=== PATIENT | male | born 1955 | race Caucasian/White ===

== ENCOUNTER 2019-11-10 08:00 | Outpatient (CLI) | payer OTHER, SELFPAY ==
--- NOTE | 2019-11-10 08:25 | CT_ITS ---
WS: [id number] CT ABDOMEN PELVIS TECHNIQUE: Contrast-enhanced CT of the abdomen and pelvis with coronal and sagittal reformatted image s. CLINICAL INFORMATION: FOLLOW UP RENAL MASS COMPARISON: December 13, 2018 DLP: 1182.[address] scans at [facility] use at least one of these dose optimization techniques: automat ed exposure control; mA and/or kV adjustment per patient size (includes targeted exams where dose is matched to clinical indication); or iterative reconstruction. FINDINGS: Diffuse fatty infiltration liver. Numerous tiny low-attenuation lesions throughout both hepatic lobes are unchanged. Normal gallbladder. Normal GE junction. Lung bases are well aerated. Normal visualize d pancreas. Portal vein and splenic vein are patent. Normal spleen. Adrenal glands are normal. Normal renal parenchymal enhancement. No hydronephrosis. Complex exophytic left renal lesion is stable measuring 17 x 16 mm. A few internal septations and peripheral enhanceme nt. Diverticulosis. No evidence of acute diverticulitis. Fat-containing left inguinal hernia. Normal caliber abdominal aorta. Mild aortic calcification. Slightly enlarged heterogeneous prostate. No evidence of small large bowel obstruction. Mild inflammatory stranding and induration about the s igmoid colon and rectosigmoid junction can be seen with mild diverticulitis and proctitis. CT/CT abdomen pelvis w con* [id number] IMPRESSION: 1. Stable exophytic left renal lesion measuring 17 x 16 mm unchanged. Recommen d continued annual surveillance. 2. Low-attenuation lesions in both hepatic lobes likely hepatic cysts with stephani e too small to characterize are stable. 3. Mild induration and inflammatory stranding about the sigmoid colon and rect osigmoid junction can be seen with mild acute diverticulitis and proctitis. Rec ommend correlation for infection. 4. Slightly enlarged nodular prostate. Recommend correlation PSA. 5. No other significant changes.
[2019-11-10 09:15] LABS: Blood Urea Nitrogen 18 mg/dL (8-23); Glomerular Filtration Rate 113.5 mL/min (90-130)
[2019-11-10] MEDS: iohexol 300 mg/mL 100 mL Btl IV (09:22)
== END 2019-11-10 08:01 | disposition home or self-care (01) ==
LOC: RADWPI 08:04
PROVIDERS: Family Provider Emergency Medicine Emergency Medical Services; Visit Provider Emergency Medicine Emergency Medical Services
DX: N28.89 Other specified disorders of kidney and ureter (principal); N40.0 Benign prostatic hyperplasia without lower urinary tract symptoms; K76.9 Liver disease, unspecified
CPT/HCPCS: 74177; 82565; 84520; Q9967

== ENCOUNTER 2020-09-07 11:51 | Outpatient (CLI) | payer OTHER, SELFPAY ==
--- NOTE | 2020-09-07 12:10 | USCV_ITS ---
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 Dr Onesimo Mcconnell MD [facility] (Electronically Signed) Final Date: 07 September 2020 16:32 S
== END 2020-09-07 11:52 | disposition home or self-care (01) ==
LOC: RAD 11:54
PROVIDERS: PCP Emergency Medicine Emergency Medical Services; Visit Provider Nurse Practitioner
DX: M79.604 Pain in right leg (principal); M79.605 Pain in left leg
CPT/HCPCS: 93922

== ENCOUNTER 2020-09-18 10:03 | Outpatient (CLI) | payer OTHER, SELFPAY ==
--- NOTE | 2020-09-18 10:53 | CT_ITS ---
WS: [id number] CT ABDOMEN WITH CONTRAST HISTORY: ANNUAL FOLLOW UP ON RENAL MASS Contiguous single phase 5 mm axial imaging performed to the abdomen. Oral contrast has not been provi ded. Coronal and sagittal reformats are submitted. All CT scans at [facility] use at leas t one of these dose optimization techniques: automated exposure control; mA and/or kV adjustment per patient size (includes targeted exams where dose is matched to clinical indication); or iterative rec onstruction. CONTRAST: Omnipaque 300; 95 mL IV. DLP: 892.45 mGycm COMPARISON: 11/10/2019, 12/13/2018 and 04/08/2018 Lower thorax: Lung bases are clear. Small hiatal hernia. Liver: Liver is slightly enlarged. There are multiple scattered low-attenuation lesions within the li christina which have been previously described. Majority of these are too small to characterize but there i s no increase in size. Gallbladder: Normal. Pancreas: Normal. Spleen: Spleen is enlarged measuring 19 cm in length. Mild progressive enlargement of the spleen sinc e 06/28/2018. Adrenals: Normal. Right kidney: Nonobstructing 2 mm calcification upper pole. Left kidney: Exophytic low-attenuation well-circumscribed mass from the posterior mid kidney measures 18 x 18 mm with mild increase in size. No obstruction. Mass was originally noted on a study from 05/11 measuring 13 x 14 mm. Aorta: Mild atherosclerosis with no aneurysm. GI tract: Moderate fluid distention of the stomach. No obstruction. No adenopathy or free fluid. Abdominal wall: No hernia. Visualized osseous structures: Mild lumbar spondylosis. CT/CT abdomen w con* [id number] IMPRESSION: 1. No significant increase in size of the solid mass exophytic from the radiator fitter ior mid LEFT kidney. Mass measures 18 x 18 mm. Originally described on 4 measuring 13 x 14 mm. Continued annual surveillance recommended. 2. Mild progressive splenomegaly. May be secondary to portal venous hypertensi on. 3. Numerous low-attenuation lesions in the liver are similar to prior studies and thought to be cysts but too small to characterize.
[2020-09-18] MEDS: iohexol 300 mg/mL 100 mL Btl IV (11:15)
== END 2020-09-18 10:04 | disposition home or self-care (01) ==
PROVIDERS: PCP Emergency Medicine Emergency Medical Services; Visit Provider Emergency Medicine Emergency Medical Services
DX: N28.89 Other specified disorders of kidney and ureter (principal)
CPT/HCPCS: 74160; Q9967

== ENCOUNTER 2021-02-22 22:17 | Emergency (ER) | payer OTHER, MEDICARE, SELFPAY ==
[2021-02-22 22:31] VITALS: BP 142/90; PULSE 102; RESP 16; TEMP 36.7; O2SAT 98
--- NOTE | 2021-02-23 01:18 | W.ED.GENADLT ---
HPI - General Adult General: Chief complaint: General Medical Stated complaint: pain in tail bone Time Seen by Provider: 02/23/21 01:18 History of Present Illness: HPI narrative: 66-year-old male gentleman comes in today for complaints of low back pain. Patient reports he will be standing at his sink and sometimes will have a strain sensation in his low back causing him to become weak in his legs. Patient gets his medications from [facility] and reports multiple medicines. Patient also admits to using THC drops. Patient reports occasional nosebleed this week from his right nostril. Patient reports that he got both hips replaced this year. Review of Systems Musc: Reports: muscle weakness (Bilateral lower legs) Physical Exam Const: GENERAL APPEARANCE: cooperative HENMT: COMMON NORMALS: normocephalic and TM's normal bilaterally HEAD & SCALP: normal to inspection and normocephalic NOSE: Nasal discharge present TYMPANIC MEMBRANE: TM's normal bilaterally MOUTH: Normal oral and palatal mucosa present THROAT: posterior oropharynx normal Eye: GENERAL EYE: appearance normal, both eyes and all related structures Neck/C-Spine: CERVICAL SPINE: Yes pain with cervical ROM with rotation to the right Lymph: LYMPHATIC: no lymphadenopathy noted Resp: COMMON NORMALS: normal respiratory effort and clear to auscultation bilaterally EFFORT & INSPECTION: Yes able to speak in complete sentences AUSCULTATION: clear to auscultation bilaterally Cardio: COMMON NORMALS: regular rate and regular rhythm RATE: regular rate RHYTHM: regular rhythm GI: COMMON NORMALS: non-tender : COMMON NORMALS: Yes no CVA tenderness BLADDER/KIDNEY EXAM: Yes no CVA tenderness Back/Pelvis: COMMON NORMALS: no CVA tenderness SACROILIAC JOINTS: Yes SI joint(s) abnormal SI joint details: tender to palpation (right SI joint area) Extremity: COMMON NORMALS: normal to inspection Neuro: COMMON NORMALS: moves all extremities Psych: COMMON NORMALS: mental status grossly normal and cooperative Skin: COMMON NORMALS: no rashes or lesions noted GENERAL SKIN EXAM: no rashes or lesions noted Course Vital Signs: Vital signs: Vital Signs Temperature 98.0 F 02/22/21 22:31 Pulse Rate 102 H 02/22/21 22:31 Respiratory Rate 16 02/22/21 22:31 Blood Pressure 142/90 02/22/21 22:31 Pulse Oximetry 98 02/22/21 22:31 MDM - General Adult MDM Narrative: Medical decision making narrative: 66-year-old male patient who ambulated into the emergency room and to his room in bed without any difficulty. Patient reports that over the last 1 to 2 weeks he has had some tailbone discomfort causing his legs to want to buckle. Patient also reports a occasional nosebleed. Patient appears well. Patient appears in no pain at rest. On exam lungs were clear to auscultation. Abdomen soft nontender. Patient had bilateral nasal congestion. Palpation of the cervical, thoracic, and lumbar spine elicited no pain. Palpation of the right sacroiliac joint area noted some tenderness and muscle tightness. Patient reported some numbness in his feet, history of diabetes mellitus and recent hip replacements. Differential diagnosis includes not limited to lumbar sacral pain, diabetic neuropathy, anxiety, electrolyte abnormality. Laboratory values noted a mild thrombocytopenia at 82, CMP was unremarkable, CRP was negative. I feel the patient probably has some sacroiliac back pain that is causing him to have discomfort when standing. Patient has some an incidental finding of thrombocytopenia which may be causing his occasional nosebleed. I do not have any explanation at this time for his thrombocytopenia I recommended patient follow-up with his primary care for further evaluation. I reviewed this with Dr. Foote who agreed to plan. Lab Data: Labs: Lab Results 02/23/21 02/23/21 02/23/21 01:15 01:43 01:43 WBC 4.6 10^3/uL 10^3/ uL (4.0-10.0) RBC 5.07 10^6/uL 10^6 /uL (4.1-5.3) Hgb 14.6 g/dL g/dL (11.7-16.6) Hct 46.2 % % (42.0-52.0) MCV 91.1 fl fl (80-94) MCH 28.8 pg pg (28.0-34.0) MCHC 31.6 g/dL g/dL (30.0-36.0) RDW 15.2 % H % (12.1-15.1) Plt Count 82 10^3/cmm L 10^ 3/cmm (130-400) MPV 11.6 fL H fL (7.4-10.4) Neut % (Auto) 69.0 % % Lymph % (Auto) 20.1 % % Glenn % (Auto) 8.4 % % Eos % (Auto) 1.7 % % Baso % (Auto) 0.6 % % Neut # (Auto) 3.18 10^3/uL 10^3 /uL (1.8-7.7) Lymph # (Auto) 0.9 10^3/uL 10^3/ uL (0.8-4.8) Glenn # (Auto) 0.4 10^3/uL 10^3/ uL (0.2-0.9) Eos # (Auto) 0.1 10^3/uL 10^3/ uL (0.0-0.8) Baso # (Auto) 0.0 10^3/uL 10^3/ uL (0.0-0.1) Nucleated RBC % (a uto) 0 % % Nucleated RBCs # 0.0 /100WBC /100W BC Sodium 139 mmol/L mmol/L (136-145) Potassium 3.8 mmol/L mmol/L (3.5-5.1) Chloride 102 mmol/L mmol/L (98-107) Carbon Dioxide 21 mmol/L L mmol/ L (22-29) Anion Gap 19.8 H (5-19) BUN 11 mg/dL mg/dL (8-23) Creatinine 0.6 mg/dL L mg/dL (0.7-1.2) GFR Calculation 134.8 mL/min H mL /min (90-130) Glucose 97 mg/dL mg/dL (65-115) Calculated Osmolal ity 287 mOsm/kg mOsm/ kg (285-295) Calcium 9.3 mg/dL mg/dL (8.5-10.5) Total Bilirubin 0.4 mg/dL mg/dL (0.15-1.2) AST 28 U/L U/L (0-40) ALT 25 U/L U/L (0-41) Alkaline Phosphata se 153 IU/L H IU/L (40-130) C-Reactive Protein 0.5 mg/L mg/L (0.0-4.9) Total Protein 7.1 g/dL g/dL (6.6-8.7) Albumin 4.5 g/dL g/dL (3.5-5.2) Globulin 2.6 g/dL g/dL (1.3-4.6) Urine Color Yellow (Yellow) Urine Appearance Clear (CLEAR) Urine pH 8 H (5-7) Ur Specific Gravit y 1.015 (1.005-1.030) Urine Protein Neg (Negative) Urine Glucose (UA) Norm (Normal) Urine Ketones Negative (Negative) Urine Blood Neg (Negative) Urine Nitrate Negative (Negative) Urine Bilirubin Neg (Negative) Prot Sulfosalicyli c Acd Negative (Negative) Urine Urobilinogen Norm mg/dL mg/dL (Negative) Ur Leukocyte Sara ase Negative (Negative) Discharge Plan Discharge Patient Disposition: Home Clinical Impression: Thrombocytopenia, Sacral back pain Condition: Stable Discharge Orders: Discharge ED (Routine); Ordered 02/23/21 Ordered By: Richie Green Referrals: Demarcus Starks DO [Primary Care Provider] - Discharge Diet: Usual diet Discharge Activity: Increase activity as tolerated Patient Instructions: Lumbar Radiculopathy (ED) Activity Restrictions/Additional Instructions: Light activity, continue with routine medications, Follow-up with primary care first of next week. 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
[2021-02-23 01:36] LABS: Add Urine Microscopic? NO; Charge for UA Resulting for Rev
[2021-02-23 01:48] LABS: Bilirubin Urine Neg (Negative); Blood Urine Neg (Negative); Glucose Urine UA Norm (Normal); Ketones Urine Negative (Negative); Leukocyte Esterase Urine Negative (Negative); Nitrate Urine Negative (Negative); Protein Urine Neg (Negative); Specific Gravity, Urine 1.015 (1.005-1.030); Sulfosalicylic Acid Urine Negative (Negative); Urine Appearance Clear (CLEAR); Urine Color Yellow (Yellow); Urobilinogen Urine Norm (Negative); pH Urine 8 (5-7)
[2021-02-23 01:53] LABS: Basophils % 0.6 %; Eosinophils # 0.1 10^3/uL (0.0-0.8); Eosinophils % 1.7 %; Hematocrit 46.2 % (42.0-52.0); Hemoglobin 14.6 g/dL (11.7-16.6); Lymphocytes # 0.9 10^3/uL (0.8-4.8); Lymphocytes % 20.1 %; Mean Corpuscular HGB Conc 31.6 g/dL (30.0-36.0); Mean Corpuscular Hemoglobin 28.8 pg (28.0-34.0); Mean Corpuscular Volume 91.1 fl (80-94); Mean Platelet Volume 11.6 fL (7.4-10.4); Monocytes # 0.4 10^3/uL (0.2-0.9); Monocytes % 8.4 %; Neutrophils # 3.18 10^3/uL (1.8-7.7); Nucleated Red Blood Cells % 0 %; Platelet Count 82 10^3/cmm (130-400); Red Blood Count 5.07 10^6/uL (4.1-5.3); Red Cell Distribution Width 15.2 % (12.1-15.1); White Blood Count 4.6 10^3/uL (4.0-10.0)
[2021-02-23 02:04] LABS: Alanine Aminotransferase 25 U/L (0-41); Albumin Level 4.5 g/dL (3.5-5.2); Alkaline Phosphatase 153 IU/L (40-130); Anion Gap 19.8 (5-19); Aspartate Amino Transferase 28 U/L (0-40); Blood Urea Nitrogen 11 mg/dL (8-23); C Reactive Protein 0.5 mg/L (0.0-4.9); Calcium 9.3 mg/dL (8.5-10.5); Carbon Dioxide 21 mmol/L (22-29); Chloride 102 mmol/L (98-107); Globulin 2.6 g/dL (1.3-4.6); Glomerular Filtration Rate 134.8 mL/min (90-130); Glucose 97 mg/dL (65-115); Osmolality Calculated 287 mOsm/kg (285-295); Potassium 3.8 mmol/L (3.5-5.1); Sodium 139 mmol/L (136-145); Total Bilirubin 0.4 mg/dL (0.15-1.2); Total Protein 7.1 g/dL (6.6-8.7)
[2021-02-23 02:29] VITALS: RESP 17
== END 2021-02-23 02:31 | disposition home or self-care (01) ==
PROVIDERS: Emergency Provider Nurse Practitioner Family; PCP Emergency Medicine Emergency Medical Services
DX: M54.89 Other dorsalgia (principal); D69.6 Thrombocytopenia, unspecified
CPT/HCPCS: 80053; 81003; 85025; 86140; 99282

== ENCOUNTER 2021-02-25 20:41 | Emergency (ER) | payer OTHER, MEDICARE, SELFPAY ==
[2021-02-25 20:52] VITALS: BP 144/87; PULSE 118; RESP 18; TEMP 37; O2SAT 97; BMI 25.0
--- NOTE | 2021-02-25 22:11 | XRR_ITS ---
PROCEDURE INFORMATION: Exam: XR Cervical Spine Exam date and time: 02/25/2021 10:11 PM Age: 66 years old Clinical indication: Neck pain; Prior surgery; Patient HX: Left arm tingle; Additional info: Fall TECHNIQUE: Imaging protocol: XR of the cervical spine. Views: 2 or 3 views. Total images: 4 COMPARISON: No relevant prior studies available. FINDINGS: Bones/joints: No visible acute osseous abnormality. Degenerative disc disease with disc space height loss of moderate severity C6/C7. Mild spondylosis deformans. Facet arthrosis most advanced on the left C3/C4, C5/C6, and C6/C7. Less significant facet arthrosis bilaterally remaining levels. Soft tissues: Unremarkable. XR/XR cervical spine 3V* [id number] IMPRESSION: 1. Nonacute. 2. Degenerative disc disease C6/C7. 3. Facet arthrosis.
--- NOTE | 2021-02-25 22:11 | XRR_ITS ---
PROCEDURE INFORMATION: Exam: XR Lumbosacral Spine Exam date and time: 02/25/2021 10:11 PM Age: 66 years old Clinical indication: Low back pain; Prior surgery; Surgery type: Bilat hip TECHNIQUE: Imaging protocol: XR of the lumbosacral spine. Views: 2 or 3 views. Total images: 3 COMPARISON: No relevant prior studies available. FINDINGS: Bones/joints: No visible fracture, subluxation, or dislocation. No visible spondylolysis or spondylolisthesis. Facet arthrosis primarily L4/L5 and L5/S1. Moderate degenerative disc disease L1/L2. Mild spondylosis deformans L1 and L2. Pedicles intact. Bilateral total hip prostheses. Soft tissues: Unremarkable. XR/XR lumbar spine 2-3V* [id number] IMPRESSION: Nonacute.
--- NOTE | 2021-02-25 22:13 | ED_ITS ---
HPI - Back Pain/Injury General: Chief Complaint: Back Pain/Injury Stated Complaint: tingling l hand\Sharp pain base of skull\Lower Yesy Time Seen by Provider: 02/25/21 22:03 Source: patient Mode of arrival: ambulatory Limitations: no limitations History of Present Illness: HPI Narrative: 66-year-old male seen here Thursday after he strained his neck and back. He states he was stretching on Thursday and had a sharp pain in his neck and back after stretching. He states that with movement especially bending over causes pain to be worse. He states his back pain is worse than his neck pain currently denies any weaknesses in extremities or numbness. Denies any fevers. States his pains improved with rest. States pain is currently is a 7 out of 10. Associated symptoms: Deny abdominal pain, chills, dysuria, fever(s), nausea or vomiting Review of Systems Const: Denies: fever(s), chills, body aches or change in appetite Eyes: Denies: blurry vision or eye discomfort ENMT: Denies: throat pain or dental pain Card: Denies: chest pain Resp: Denies: dyspnea GI: Denies: abdominal pain, nausea, vomiting or diarrhea : Denies: dysuria Musc: Reports: neck pain and back pain Skin/Breast: Denies: rash Neuro: Denies: headache(s) Psych: Denies: depression Andrzej/Lymph: Denies: easy bruising All/Imm: Denies: urticaria Physical Exam Const: COMMON NORMALS: no acute distress, patient oriented x3 and healthy appearing HENMT: COMMON NORMALS: normocephalic and atraumatic HEAD & SCALP: normocephalic and atraumatic Eye: COMMON NORMALS: Equal, round and reactive pupils present and EOMs intact bilaterally PUPIL: Yes Equal, round and reactive pupils present Neck/C-Spine: COMMON NORMALS: full ROM and supple Chest: COMMONS NORMALS: normal inspection of the chest and normal palpation of entire chest wall Resp: COMMON NORMALS: normal respiratory effort, No retractions, No use of accessory muscles and clear to auscultation bilaterally AUSCULTATION: clear to auscultation bilaterally Cardio: COMMON NORMALS: regular rate, regular rhythm and No murmurs present (Cardio) RATE: regular rate RHYTHM: regular rhythm GI: COMMON NORMALS: Normal to inspection, nondistended, normoactive bowel sounds present, Soft to palpation, non-tender and no masses PALPATION: Yes Soft to palpation Back/Pelvis: OTHER: Paraspinal tenderness along lumbar spine along with the neck Extremity: COMMON NORMALS: normal to inspection and full ROM Neuro: COMMON NORMALS: patient oriented x3, moves all extremities and no focal motor deficits Psych: COMMON NORMALS: mental status grossly normal, Normal thought process present and cooperative THOUGHT PROCESS: Normal thought process present Skin: COMMON NORMALS: no rashes or lesions noted and no wounds GENERAL SKIN EXAM: no rashes or lesions noted Course Vital Signs: Vital signs: Vital Signs Temperature 98.6 F 02/25/21 20:52 Pulse Rate 92 02/25/21 22:58 Respiratory Rate 18 02/25/21 22:58 Blood Pressure 140/88 02/25/21 22:58 Pulse Oximetry 97 02/25/21 22:58 MDM - Back Pain/Injury MDM Narrative: Medical decision making narrative: Patient presents here with back pain is likely muscular in nature his x-rays here are negative we will place him on Naprosyn Robaxin he is to follow-up his PCP and return if worsening is no signs of cord compression or epidural abscess. Discharge Plan Discharge Patient Disposition: Home Clinical Impression: Strain of lumbar region Qualifiers: Encounter type: subsequent encounter Qualified Code(s): S39.012D - Strain of muscle, fascia and tendon of lower back, subsequent encounter Condition: Stable Prescriptions: New methocarbamol 750 mg tablet 750 mg PO Q6H PRN (Reason: spasms) Qty: 20 RF: 0 Naprosyn 500 mg tablet 500 mg PO BID PRN (Reason: pain) Qty: 20 RF: 0 Discharge Orders: Discharge ED (Routine); Ordered 02/25/21 Ordered By: Vanessa Foote Referrals: Demarcus Starks DO [Primary Care Provider] - Discharge Diet: Advance as tolerated Discharge Activity: Resume usual activity Patient Instructions: Back Pain (ED) Coding Level of Care Code ED [facility] Fwd Exam Comprehensive
[2021-02-25] MEDS: HYDROcodone-acetaminophen 5-325 mg Tablet 1 TAB PO (22:17)
[2021-02-25 22:58] VITALS: BP 140/88; PULSE 92; RESP 18; O2SAT 97
== END 2021-02-25 23:00 | disposition home or self-care (01) ==
PROVIDERS: Emergency Provider Emergency Medicine; PCP Emergency Medicine Emergency Medical Services
DX: S39.012A Strain of muscle, fascia and tendon of lower back, initial encounter (principal); X50.9XXA Other and unspecified overexertion or strenuous movements or postures, initial encounter
CPT/HCPCS: 72040; 72100; 99283

== ENCOUNTER → 2021-04-22 15:15 | Outpatient (BNVA) | payer OTHER, SELFPAY | PROVIDERS: PCP Emergency Medicine Emergency Medical Services; Referring Provider Emergency Medicine Emergency Medical Services; Visit Provider Specialist | DX: R20.0 Anesthesia of skin (principal); R20.2 Paresthesia of skin; Z98.890 Other specified postprocedural states | CPT/HCPCS: 95908 ==

== ENCOUNTER 2021-09-26 12:05 | Outpatient (CLI) | payer OTHER, SELFPAY ==
--- NOTE | 2021-09-26 12:10 | CTR_ITS ---
PROCEDURE INFORMATION: Exam: CT Abdomen And Pelvis Without And With Contrast Exam date and time: 09/26/2021 12:54 PM Age: 66 years old Clinical indication: Condition or disease; Kidney or ureter condition; Other: Renal mass RT; Additional info: Annual follow up on renal mass TECHNIQUE: Imaging protocol: Computed tomography of the abdomen and pelvis without and with contrast. Radiation optimization: All CT scans at this facility use at least one of these dose optimization techniques: automated exposure control; mA and/or kV adjustment per patient size (includes targeted exams where dose is matched to clinical indication); or iterative reconstruction. Contrast material: OMNI 350; Contrast volume: 95 ml; Contrast route: INTRAVENOUS (IV); COMPARISON: CT abdomen w con* [id number] 09/18/2020 11:07 AM RADIATION DOSE METRICS: Total DLP (mGy-cm): 2080.13 FINDINGS: Liver: Scattered hepatic subcentimeter probable cysts again seen similar to prior exam. Gallbladder and bile ducts: Normal. No calcified stones. No ductal dilation. Pancreas: Normal. No ductal dilation. Spleen: Spleen enlarged to 19 cm. Adrenal glands: Normal. No mass. Kidneys and ureters: Left kidney exophytic 18 mm potentially solid lesion again seen, similar to prior exam. Right kidney nonobstructing renal calyceal stone. Stomach and bowel: Constipation. Appendix: No evidence of appendicitis. Intraperitoneal space: Unremarkable. No free air. No significant fluid collection. Vasculature: Unremarkable. No abdominal aortic aneurysm. Lymph nodes: Unremarkable. No enlarged lymph nodes. Urinary bladder: Unremarkable as visualized. Reproductive: Unremarkable as visualized. Bones/joints: Bilateral hip arthroplasty changes. Soft tissues: Unremarkable. CT/CT abdomen pelvis wo/w [id number] IMPRESSION: 1. Left kidney exophytic 18 mm potentially solid lesion again seen, similar to prior exam. Consider additional annual follow-up exam to ensure stability for up to 5 years. 2. Spleen enlarged to 19 cm. 3. Right kidney nonobstructing renal calyceal stone. 4. Bilateral hip arthroplasty changes. 5. Constipation. 6. Scattered hepatic subcentimeter probable cysts again seen similar to prior exam.
[2021-09-26 13:01] LABS: Blood Urea Nitrogen 15 mg/dL (8-23); Glomerular Filtration Rate 84.4 mL/min (90-130)
[2021-09-26] MEDS: iohexol 350 mg/mL 100 mL Btl IV (13:01)
== END 2021-09-26 12:06 | disposition home or self-care (01) ==
LOC: RAD 12:07
PROVIDERS: PCP Emergency Medicine Emergency Medical Services; Visit Provider Emergency Medicine Emergency Medical Services
DX: Z01.89 Encounter for other specified special examinations (principal); N28.89 Other specified disorders of kidney and ureter; K59.00 Constipation, unspecified; Z96.643 Presence of artificial hip joint, bilateral; N20.0 Calculus of kidney; R16.1 Splenomegaly, not elsewhere classified
CPT/HCPCS: 74178; 82565; 84520

== ENCOUNTER 2022-05-05 07:49 | Outpatient (CLI) | payer OTHER, SELFPAY ==
--- NOTE | 2022-05-05 08:04 | US_ITS ---
WS: [id number] Exam: US abdomen limited [id number] Date/Time of Exam: 05/05/2022 8:13 AM Reason For Exam: LIVER CA SURVEILLENCE FLIP TO CITC Comparison 04/08/2018. The liver demonstrates a heterogeneous echotexture essentially unchanged from the prior study. No dis crete mass is noted in the liver. No intrahepatic ductal dilatation. There are 2 small cysts in the r ight hepatic lobe. The largest cyst measures about 1.25 cm at greatest diameter, the smaller cyst abo ut 0.6 cm. The pancreas is unremarkable as visualized. Flow in the portal vein was hepatopedal. Unrem arkable right kidney measures 12.3 cm at greatest length. The gallbladder appears normal. Common bile duct is not dilated and measures approximately 3 mm at greatest diameter. No intrahepatic ductal dil atation. US/US abdomen limited [id number] IMPRESSION: 1. 2 small cysts in the right lobe of the liver the largest about 1.25 cm at gr eatest diameter and the smaller cyst 0.6 cm. 2. No sign of discrete hepatic mass or intrahepatic ductal dilatation. 3. Heterogeneous echotexture of the liver unchanged in appearance since the las t exam.
--- NOTE | 2022-05-05 08:04 | CTR_ITS ---
PROCEDURE INFORMATION: Exam: CT Abdomen And Pelvis Without And With Contrast Exam date and time: 05/05/2022 8:54 AM Age: 67 years old Clinical indication: Condition or disease; Other: Renal mass; Prior surgery; Surgery type: Bilat hip; Additional info: Follow up renal mass flip to [facility] TECHNIQUE: Imaging protocol: Computed tomography of the abdomen and pelvis without and with contrast. 3D rendering (Not supervised by radiologist): MIP and/or 3D reconstructed images were created by the technologist. Radiation optimization: All CT scans at this facility use at least one of these dose optimization techniques: automated exposure control; mA and/or kV adjustment per patient size (includes targeted exams where dose is matched to clinical indication); or iterative reconstruction. Contrast material: OMNI 350; Contrast volume: 95 ml; Contrast route: INTRAVENOUS (IV); REPORTING DATA: Count of CT and Cardiac NM exams in prior 12 months: This patient has received [address] and 0 known cardiac nuclear medicine studies in the 12 months prior to the current study. COMPARISON: CT abdomen pelvis wo/w [id number] 09/26/2021 12:54 PM RADIATION DOSE METRICS: Total DLP (mGy-cm): 2502.17 FINDINGS: Liver: Hepatic cirrhosis morphology with nodular contour and/or caudate lobe enlargement and/or left lobe enlargement. Low-attenuation lesions in the liver which are incompletely characterized on this exam. At least one of these measures larger than 5 mm in maximum dimension. Gallbladder and bile ducts: Normal. No calcified stones. No ductal dilation. Pancreas: Normal. No ductal dilation. Spleen: Continued 20.3 by 10.5 x 12.9 cm large splenomegaly. Adrenal glands: Normal. No mass. Kidneys and ureters: Minimal increased size of 18 mm exophytic lesion arising from the lower pole left kidney measuring 30 Hounsfield units without contrast and 36 Hounsfield units with contrast most consistent with pseudo enhancement of a hemorrhagic cyst or other complex cyst. Previously this measured 17 mm and has slowly increased with size since original measurement of 14 mm in 2014. Previously this did not appear to enhance with contrast. There are no obvious septations. This is a Bosniak 2 lesion requiring no follow-up. Stomach and bowel: Mild colonic diverticulosis. Periampullary duodenal diverticulum. Appendix: Normal appendix. Intraperitoneal space: Unremarkable. No free air. No significant fluid collection. Vasculature: Recanalization of the umbilical vein consistent with portal hypertension and portosystemic shunt. 19 mm portal vein consistent with portal hypertension. Varices in the posterior wall of the gastric fundus and anterior to the left liver and gastric antrum. Calcification of the abdominal aorta and/or iliac arteries consistent with atherosclerotic vessel disease. Lymph nodes: Unremarkable. No enlarged lymph nodes. Urinary bladder: Unremarkable as visualized. Reproductive: Unremarkable as visualized. Bones/joints: Bilateral total hip replacement with metallic artifact partially obscuring the pelvic anatomy. Soft tissues: Unremarkable. CT/CT abdomen pelvis wo/w [id number] IMPRESSION: 1. Minimal increased size of 18 mm exophytic lesion arising from the lower pole left kidney measuring 30 Hounsfield units without contrast and 36 Hounsfield units with contrast most consistent with pseudo enhancement of a hemorrhagic cyst or other complex cyst. Previously this measured 17 mm and has slowly increased with size since original measurement of 14 mm in 2014. Previously this did not appear to enhance with contrast. There are no obvious septations. This is a Bosniak 2 lesion requiring no follow-up. 2. Cirrhosis with portal hypertension, varices and large 20.3 cm splenomegaly.
[2022-05-05 08:53] LABS: Blood Urea Nitrogen 18 mg/dL (8-23); Glomerular Filtration Rate 96.4 mL/min (90-130)
[2022-05-05] MEDS: iohexol 350 mg/mL 500 mL Btl (per mL) IV (09:01)
== END 2022-05-05 07:50 | disposition home or self-care (01) ==
LOC: RAD 07:54
PROVIDERS: PCP Emergency Medicine Emergency Medical Services; Visit Provider Emergency Medicine Emergency Medical Services
DX: N28.89 Other specified disorders of kidney and ureter (principal); K74.60 Unspecified cirrhosis of liver; K76.6 Portal hypertension; R16.1 Splenomegaly, not elsewhere classified; K76.89 Other specified diseases of liver
CPT/HCPCS: 74178; 76705; 82565; 84520; Q9967

== ENCOUNTER → 2022-07-31 08:32 | Outpatient (BNVA) | payer OTHER, SELFPAY | PROVIDERS: PCP Emergency Medicine Emergency Medical Services; Referring Provider Emergency Medicine Emergency Medical Services; Visit Provider Internal Medicine | DX: E11.9 Type 2 diabetes mellitus without complications (principal); K74.60 Unspecified cirrhosis of liver | CPT/HCPCS: 36415; 83036; 99203; 99204 ==

== ENCOUNTER 2022-10-22 08:37 | Outpatient (CLI) | payer OTHER, SELFPAY ==
--- NOTE | 2022-10-22 08:45 | MR_ITS ---
WS: [id number] MRI LUMBAR SPINE NONCONTRAST TECHNIQUE: Sagittal T1, T2 and STIR imaging. Axial T1 and T2 imaging. CLINICAL INFORMATION: LOW BACK PAIN W/RADICULOPATHY COMPARISON: None. FINDINGS: Mild lumbar curve. No acute compression. Slight retrolisthesis L1 on L2. L1-L2: Slight retrolisthesis. Mild annular bulging. Narrowing of the subarticular recess bilaterally RIGHT greater than LEFT. Mild facet arthropathy. Foramen are patent. L2-L3: Mild annular bulging with mild central canal stenosis. Narrowing of the subarticular recess bi laterally. Mild facet arthropathy. Foramen are patent. L3-L4: Mild annular bulging. Mild central canal stenosis. Impingement traversing L4 nerve roots bilat erally. Foramen are patent. Moderate facet arthropathy. L4-L5: Mild annular bulging with mild central canal stenosis. Impingement traversing L5 nerve roots bilaterally. Moderate facet arthropathy. Mild LEFT foraminal narrowing. RIGHT foramen is patent. L5-S1: Mild annular bulging. Mild facet arthropathy. Spinal canal and foramen are patent. Visualized pelvic bony structures: Normal. Paravertebral soft tissues: Normal. Small LEFT renal cyst. IMPRESSION: 1. Mild lumbar curve. Slight retrolisthesis L1 on L2. No acute compression fractures. 2. Mild central canal stenosis L2-L3 L3-L4 and L4-L5 worse at L4-L5 with impingement traversing L5 n erve roots bilaterally. 3. Disc bulging L1-2 with slight retrolisthesis and impingement on the RIGHT greater than LEFT subar ticular recess. 4. Moderate facet arthropathy L3-L5.
== END 2022-10-22 08:38 | disposition home or self-care (01) ==
PROVIDERS: PCP Emergency Medicine Emergency Medical Services; Visit Provider Emergency Medicine Emergency Medical Services
DX: M47.26 Other spondylosis with radiculopathy, lumbar region (principal); M43.16 Spondylolisthesis, lumbar region; M48.061 Spinal stenosis, lumbar region without neurogenic claudication; M51.36 Other intervertebral disc degeneration, lumbar region
CPT/HCPCS: 72148

== ENCOUNTER → 2022-11-05 09:43 | Outpatient (BNVA) | payer OTHER, SELFPAY | PROVIDERS: PCP Emergency Medicine Emergency Medical Services; Visit Provider Internal Medicine | DX: Z79.899 Other long term (current) drug therapy; E11.65 Type 2 diabetes mellitus with hyperglycemia; K74.60 Unspecified cirrhosis of liver | CPT/HCPCS: 36415; 80053; 80061; 82044; 83036; 99214 ==

== ENCOUNTER → 2022-11-27 09:32 | Outpatient (BNVA) | payer OTHER, SELFPAY | PROVIDERS: PCP Emergency Medicine Emergency Medical Services; Visit Provider Dermatology | DX: L57.0 Actinic keratosis (principal); L02.821 Furuncle of head [any part, except face]; I87.2 Venous insufficiency (chronic) (peripheral); L57.8 Other skin changes due to chronic exposure to nonionizing radiation; Q82.5 Congenital non-neoplastic nevus; L82.1 Other seborrheic keratosis; I83.92 Asymptomatic varicose veins of left lower extremity | CPT/HCPCS: 17000; 99204 ==

== ENCOUNTER 2023-03-10 20:02 | Emergency (ER) | payer OTHER, SELFPAY ==
[2023-03-10 20:05] VITALS: BP 162/103; PULSE 97; RESP 15; TEMP 36.6; O2SAT 98
--- NOTE | 2023-03-10 20:16 | XRR_ITS ---
PROCEDURE INFORMATION: Exam: XR Left Shoulder Exam date and time: 03/10/2023 8:20 PM Age: 68 years old Clinical indication: Pain; Left; Prior surgery; Surgery date: 6+ months; Surgery type: Lt shoulder TECHNIQUE: Imaging protocol: Radiologic exam of the left shoulder. Views: 2 or more views. COMPARISON: CR XR cervical spine 3V* [id number] 02/25/2021 10:29 PM FINDINGS: Bones/joints: Left glenohumeral arthroplasties present. Circumferential band of lucency is present at the humeral neck margins. A radiolucent insert is presumed present in the glenoid. No acute fracture or dislocation. Mild AC joint arthropathy. Soft tissues: Normal. XR/XR shoulder LT min 2V* [id number] IMPRESSION: No acute fracture or dislocation. Findings suggestive of loosening of the humeral arthroplasty.
--- NOTE | 2023-03-10 20:42 | ED_ITS ---
HPI - Extremity Problem General: Chief complaint: Extremity Problem,Nontraumatic Stated complaint: Left Shoulder Pain Time Seen by Provider: 03/10/23 20:12 History of Present Illness: Patient presents to the ER with complaints of left shoulder pain. This been going on over the past several days since he lifted a skillet. Patient has had a shoulder replacement about 7 years ago. Patient has appointment with Dr. Starks tomorrow to be referred back to the orthopedic surgeon but the pain is not responding to Naprosyn and liquid THC and therefore patient come to the ER to be checked out. Keeping his arm still helps the pain anytime the patient tries to move it he gets sharp stabbing shooting pain. Review of Systems General: Reports: 10 or more systems reviewed and unremarkable except in HPI and below PFSH ED PFSH: Social History Smoking and tobacco/nicotine status: never used tobacco/nicotine Alcohol intake: never Substance/Drug Use: never Physical Exam Const: COMMON NORMALS: no acute distress, average body habitus, patient oriented x3, no limitations, healthy appearing, alert and well nourished HENMT: COMMON NORMALS: normocephalic, atraumatic, hearing grossly normal bilaterally, external ears normal, Normal external nose present, moist oral mucous membranes and oropharynx normal HEAD & SCALP: normocephalic and atraumatic NOSE: Normal external nose present EXTERNAL EAR: Yes external ears normal Neck/C-Spine: COMMON NORMALS: full ROM, no lymphadenopathy, supple, no meningeal signs, no JVD and Thyroid normal THYROID: Thyroid normal Chest: COMMONS NORMALS: normal inspection of the chest and normal palpation of entire chest wall Resp: COMMON NORMALS: normal respiratory effort, No retractions, No use of accessory muscles and clear to auscultation bilaterally AUSCULTATION: clear to auscultation bilaterally Cardio: COMMON NORMALS: no JVD, regular rate, regular rhythm, S1 normal heart sound present, S2 normal heart sound present, No gallops present (Cardio), No clicks present (Cardio), No murmurs present (Cardio) and No rub (Cardio) RATE: regular rate RHYTHM: regular rhythm HEART SOUNDS: S1 normal heart sound present and S2 normal heart sound present GI: COMMON NORMALS: Normal to inspection, nondistended, normoactive bowel sounds present, Soft to palpation, non-tender, No hepatosplenomegaly present and no masses PALPATION: Yes Soft to palpation and Yes No hepatosplenomegaly present Extremity: NARRATIVE EXTREMITY EXAM: Limited range of motion secondary to pain no gross deformity crepitus Neuro: COMMON NORMALS: patient oriented x3 SENSORIUM/ORIENTATION: Yes alert MENINGEAL SIGNS: Yes no meningeal signs Course Vital Signs: Vital signs: Vital Signs Temperature 97.8 F 03/10/23 20:05 Pulse Rate 97 03/10/23 20:05 Respiratory Rate 15 03/10/23 20:05 Blood Pressure 162/103 03/10/23 20:05 Pulse Oximetry 98 03/10/23 20:05 Oxygen Delivery Me thod Room Air 03/10/23 20:05 MDM - Extremity (Nontraumatic) Medical Decision Making X-ray was obtained of the shoulder which was negative for acute changes radiologist of possible loosening of the hardware., patient was given Toradol 60 mg, Norflex 60 mg, Decadron 10 mg, IM. Patient will be given 2 [place] to go home on prescription for 5 more patient should keep his appointment with his doctor at 8:30 in the morning. Differential Diagnosis Unlikely herpes zoster, gout, cellulitis, superficial thrombophlebitis, deep venous thrombosis of upper extremity, lower extremity edema or deep vein thrombosis of lower extremity Medical Records I reviewed the patient's medical records. Lab Data I reviewed the patient's lab results. Radiology Impressions Shoulder X-Ray 03/10/23 20:16 IMPRESSION: No acute fracture or dislocation. Findings suggestive of loosening of the humeral arthroplasty. All radiology interpretation(s) finalized by discharge Discharge Plan Discharge Patient Disposition: Home Clinical Impression: Acute pain of left shoulder Condition: Stable Prescriptions: New hydrocodone-acetaminophen 5-325 mg tablet 1 tab PO Q4H PRN (Reason: pain) Qty: 5 0RF No Action lisinopril-hydrochlorothiazide 20-25 mg tablet 1 tab PO DAILY omeprazole 20 mg tablet,delayed release (DR/EC) 20 mg PO DAILY finasteride 5 mg tablet 5 mg PO DAILY tamsulosin 0.4 mg capsule 0.4 mg PO DAILY semaglutide (weight loss) 1 mg/0.5 mL pen injector 1 mg SUBCUT Q7D vitamin B complex [B Complex-Vitamin B12] Tablet 1 tab PO DAILY cholecalciferol (vitamin D3) 50 mcg (2,000 unit) capsule 50 mcg PO DAILY milk thistle 150 mg capsule 150 mg PO BID Rx Instructions: give with meal/snack acetaminophen [Tylenol Arthritis Pain] 650 mg tablet extended release 650 mg PO Q12H diphenhydramine HCl [Allergy (diphenhydramine)] 25 mg capsule 25 mg PO TID PRN sorbital laxative as directed Naprosyn 500 mg tablet 500 mg PO BID PRN (Reason: pain) Qty: 20 0RF Discharge Orders: Discharge ED (Routine); Ordered 03/10/23 Ordered By: Demetrio Maldonado Referrals: Demarcus Starks DO [Primary Care Provider] - Patient Instructions: Shoulder Pain (ED), Opioid Safety, Pain Management Activity Restrictions/Additional Instructions: Your x-rays of your left shoulder showed possible loosening of the hardware. Please use all pain medicine as prescribed. Please keep your appointment with your doctor at 8:30 in the morning. Coding Level of Care Code ED [employer] Manager for Lokesh Meyer
[2023-03-10] MEDS: dexamethasone 10 mg/mL INJ IM (21:06)
[2023-03-10] MEDS: orphenadrine 30 mg/mL Inj 2 mL 60 MG IM (21:06)
[2023-03-10] MEDS: ketorolac 60 mg/2 mL INJ IM (21:06)
[2023-03-10] MEDS: HYDROcodone-acetaminophen 5-325 mg Tablet 2 TAB PO (22:16)
[2023-03-10 22:18] VITALS: BP 162/103; PULSE 97; RESP 15; TEMP 36.6; O2SAT 98
== END 2023-03-10 22:20 | disposition home or self-care (01) ==
PROVIDERS: Emergency Provider Emergency Medicine; PCP Emergency Medicine Emergency Medical Services
DX: M25.512 Pain in left shoulder (principal)
CPT/HCPCS: 73030; 96372; 99284; J1100; J1885; J2360

== ENCOUNTER → 2023-05-05 07:21 | Outpatient (BNVA) | payer OTHER, SELFPAY | PROVIDERS: PCP Emergency Medicine Emergency Medical Services; Visit Provider Internal Medicine | DX: E11.9 Type 2 diabetes mellitus without complications (principal); K74.60 Unspecified cirrhosis of liver; E78.2 Mixed hyperlipidemia; Z79.85 Long-term (current) use of injectable non-insulin antidiabetic drugs | CPT/HCPCS: 36415; 80053; 80061; 82044; 83036; 99214 ==

== ENCOUNTER → 2023-08-17 07:47 | Outpatient (BNVA) | payer OTHER, SELFPAY | PROVIDERS: PCP Emergency Medicine Emergency Medical Services; Visit Provider Internal Medicine | DX: E11.9 Type 2 diabetes mellitus without complications (principal); E78.2 Mixed hyperlipidemia; K74.60 Unspecified cirrhosis of liver; R63.5 Abnormal weight gain; Z79.85 Long-term (current) use of injectable non-insulin antidiabetic drugs; Z68.34 Body mass index [BMI] 34.0-34.9, adult | CPT/HCPCS: 99214 ==

== ENCOUNTER → 2023-11-17 08:08 | Outpatient (BNVA) | payer OTHER, SELFPAY | PROVIDERS: PCP Emergency Medicine Emergency Medical Services; Visit Provider Internal Medicine | DX: E11.9 Type 2 diabetes mellitus without complications (principal); K74.60 Unspecified cirrhosis of liver; R63.5 Abnormal weight gain; Z68.32 Body mass index [BMI] 32.0-32.9, adult; Z79.85 Long-term (current) use of injectable non-insulin antidiabetic drugs | CPT/HCPCS: 99214 ==

== ENCOUNTER 2023-11-27 08:18 | Outpatient (CLI) | payer OTHER, SELFPAY ==
[2023-11-27 08:27] VITALS: BMI 32.6
--- NOTE | 2023-11-27 08:39 | ECG_ITS ---
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 The perfusion scan will be documented separately. DATA: Baseline heart rate was 85 beats per minute. Baseline blood pressure was 142/68 millimeters of mercury. Target heart rate was 152. Maximum heart rate achieved was 136. which was 89% of the predicted target heart rate. Maximum blood pressure was 178/93 millimeters of mercury. The reason for ending the test was completion of the protocol. The patient did not experience any symptoms. ELECTROCARDIOGRAM: BASELINE: Sinus rhythm. Normal axis. Interventricular conduction delay, otherwise, no ST-T changes suggestive of ischemia noted. No arrhythmia noted. EXERCISE: After Lexiscan injection, no ST-T changes suggestive of ischemic noted. No arrhythmia noted. CONCLUSION: Please note due to baseline abnormality of the EKG specificity and sensitivity of the EKG portion of LexiScan MIBI stress test will be low 1. EKG not suggestive of ischemia 2. Lexiscan injection unremarkable. 3. Perfusion scan will be documented separately. Electronically Signed On 12-06-2023 15:11:47 CDT by ABEL MAURICE [email or web address]
--- NOTE | 2023-11-27 08:39 | NMCV_ITS ---
NM fabi perf SPECT r/s* [id number] Renny Holm Age: 68 Gender: M : 1955 Exam Date: 11/27/2023 08:39 Ordering Phys: Karyn Henson MD Technologist: ASHU Morales Exam Location: [facility] Indications: CP STRESS TEST Please see separate stress test report in [facility] for full findings IMAGE PROTOCOL Rest/Stress 1 Exercise Day Radiopharmaceutical Dose (mCi) Administration Site Administered by Rest: Tc-99m 10.6 IV ASHU Morales Sestamibi Stress:Tc-99m 32.8 IV ASHU Morales Sestamibi Rest: 27-Nov-2023 60 Discovery 630 Stress: 27-Nov-2023 15 Discovery 630 Radiopharmaceutical was injected at 85 % maximum heart rate. Images obtained in supine and prone position. SPECT RESULTS Technical Quality: Excellent Raw Data Analysis: Normal Image Corrections: No attenuation or motion correction applied Summed Stress Score: 0 Summed Rest Score: 0 Summed Difference Score: 0 PERFUSION FINDINGS Uniform myocardial tracer uptake within normal significant Perfusion abnormalities FUNCTIONAL RESULTS (calculated via Gated SPECT) Stress Image LV EF (%): 77 Stress EDV (mL):81 TID: 0.69 Stress ESV (mL):19 FUNCTIONAL FINDINGS: Segmental wall motion analysis revealing no gross wall motion abnormalities IMPRESSIONS 1. Unremarkable Myocardial perfusion imaging 2. Normal LV ejection fraction of 77% 3. LV wall motion analysis revealing no gross wall motion abnormalities. 4. Normal LV volume Low probability for coronary ischemia, based on the above findings No similar previous studies are available for comparison Dr Onesimo Mcconnell MD [facility] (Electronically Signed) Final Date: 29 November 2023 20:47 S
[2023-11-27 10:00] VITALS: BP 137/73; PULSE 99
== END 2023-11-27 08:19 | disposition home or self-care (01) ==
PROVIDERS: PCP Family Medicine; Visit Provider Family Medicine
DX: R94.31 Abnormal electrocardiogram [ECG] [EKG] (principal); R06.02 Shortness of breath
CPT/HCPCS: 36415; 78452; 93017; A9500

== ENCOUNTER → 2023-11-30 09:47 | Outpatient (BNVA) | payer OTHER, SELFPAY | PROVIDERS: PCP Family Medicine; Visit Provider Nurse Practitioner Family | DX: L91.8 Other hypertrophic disorders of the skin (principal); I87.2 Venous insufficiency (chronic) (peripheral); L57.8 Other skin changes due to chronic exposure to nonionizing radiation; Q82.5 Congenital non-neoplastic nevus; L82.1 Other seborrheic keratosis | CPT/HCPCS: 17110; 99213 ==

== ENCOUNTER 2024-02-15 14:47 | Emergency (ER) | payer OTHER, SELFPAY ==
[2024-02-15 15:01] VITALS: BP 153/95; PULSE 89; RESP 20; TEMP 36.4; O2SAT 99; BMI 21.2
--- NOTE | 2024-02-15 15:41 | ED_ITS ---
HPI - Male Genitourinary 2 General: Chief complaint: Urogenital-Male Stated complaint: Cath not draining Time Seen by Provider: 02/15/24 15:36 History of Present Illness: 69-year-old male presents to the emergen cy room complaining of abdominal distention and discomfort. The last couple days he has not been able to urinate very well. Prior to that he had some hematuria and thought he was passing a kidney stone. [facility] and they did a bladder scan he had over 700 in his bladder they tried to place a catheter but it did not drain much at all and he continues to have discomfort some the discomfort is slightly worse. Associated symptoms: Reports hematuria and nausea; Deny dysuria Related Data Home Medications Medication Instructions Recorded Confirmed acetaminophen 650 mg 1,300 mg PO Q12H 04/22/21 02/15/24 tablet,extended release (Tylenol Arthritis Pain) cholecalciferol (vitamin D3) 50 50 mcg PO DAILY 04/22/21 02/15/24 mcg (2,000 unit) capsule diphenhydramine HCl 25 mg capsule 25 mg PO TID PRN allergies 04/22/21 02/15/24 (Allergy (diphenhydramine)) finasteride 5 mg tablet 5 mg PO DAILY 04/22/21 02/15/24 lisinopril 20 1 tab PO DAILY 04/22/21 02/15/24 mg-hydrochlorothiazide 25 mg tablet milk thistle 150 mg capsule 150 mg PO BID 04/22/21 02/15/24 omeprazole 20 mg tablet,delayed 20 mg PO DAILY 04/22/21 02/15/24 release tamsulosin 0.4 mg capsule 0.4 mg PO DAILY 04/22/21 02/15/24 sorbital laxative See Rx Instructions .Route .COMPLEX 11/05/22 02/15/24 cyclobenzaprine 10 mg tablet 10 mg PO ONCE 08/17/23 02/15/24 aspirin 81 mg tablet,delayed 81 mg PO DAILY 02/15/24 02/15/24 release (Max Low Dose Aspirin) vitamin B complex 1 cap PO DAILY 02/15/24 02/15/24 Previous Rx's Medication Instructions Recorded naproxen 500 mg tablet (Naprosyn) 500 mg PO BID PRN pain #20 tabs 02/25/21 pen needle, diabetic 32 gauge x #100 ea 06/01/23 (Comfort EZ Pen [place]) semaglutide 1 mg/dose (4 mg/3 mL) 1 mg (0.75 mL) SUBCUT Q7D #3 mL 08/17/23 subcutaneous pen injector (Ozempic) semaglutide 0.25 mg or 0.5 mg (2 See Rx Instructions .Route 11/07/23 mg/3 mL) subcutaneous pen injector .COMPLEX #3 mL (Ozempic) ciprofloxacin HCl 500 mg tablet 500 mg PO BID #14 tabs 02/15/24 (Cipro) Allergies Allergy/AdvReac Type Severity Reaction Status Date / Time tuberculin, purified protein Allergy Unknown Verified 02/15/24 15:08 deriva Review of Systems 2 Const: Denies: fever(s) or chills Card: Denies: chest pain Resp: Denies: dyspnea GI: Reports: abdominal pain and nausea; Denies: hematemesis or coffee ground emesis : Reports: hematuria; Denies: dysuria, urinary frequency or urinary urgency Musc: Denies: neck pain or back pain Skin/Breast: Denies: rash PFSH ED 2 PFSH: Social History (Reviewed 08/17/23 @ 08:27 by Chanel Whipple [facility]) Smoking and tobacco/nicotine status: former use of tobacco/nicotine Alcohol intake: never Substance/Drug Use: never Physical Exam 2 Const: GENERAL APPEARANCE: cooperative ORIENTATION/CONSCIOUSNESS: Yes awake, Yes oriented to person, Yes oriented to place and Yes oriented to time HENMT: COMMON NORMALS: normocephalic, atraumatic and hearing grossly normal bilaterally HEAD & SCALP: normocephalic and atraumatic Resp: COMMON NORMALS: normal respiratory effort, No retractions, No use of accessory muscles and clear to auscultation bilaterally AUSCULTATION: clear to auscultation bilaterally Cardio: COMMON NORMALS: regular rate, regular rhythm and No murmurs present (Cardio) RATE: regular rate RHYTHM: regular rhythm GI: COMMON NORMALS: No hepatosplenomegaly present AUSCULTATION: Yes normoactive bowel sounds PALPATION: Yes Tenderness to palpation present (GI) (Suprapubic tenderness), No Guarding due to palpation present (GI) and Yes No hepatosplenomegaly present Extremity: COMMON NORMALS: normal to inspection, capillary refill normal, no clubbing, cyanosis or edema, no calf tenderness and no pedal edema Neuro: SENSORIUM/ORIENTATION: Yes oriented to person, Yes oriented to place and Yes oriented to time Skin: COMMON NORMALS: no rashes or lesions noted GENERAL SKIN EXAM: no rashes or lesions noted Course 2 Vital Signs: Vital signs: Vital Signs Temperature 97.5 F L 02/15/24 15:01 Pulse Rate 74 02/15/24 18:30 Respiratory Rate 16 02/15/24 18:00 Blood Pressure 133/84 02/15/24 18:30 Pulse Oximetry 97 02/15/24 18:30 Oxygen Delivery Me thod Room Air 02/15/24 17:28 MDM - Male Medical Decision Making We reposition the catheter catheter and then replaced it. CT was done confirms that the bladder is decompressed and the Moyer is correctly positioned. The patient has ascites fluid in the pelvis adjacent to the bladder. [facility] is that the bladder scanner calculated the adjacent ascites as being urine in the bladder. He likely will need this drained at some point in the future. He does have sign of infection at this time. Greater than 100 red and white blood cells. CT also showed cirrhosis moderately decompensated portal hypertension. No ureterolithiasis there is a solitary stone in the right kidney. He is not having renal colic leg pain most of his pain is suprapubic. Believe he does have a bladder infection at this point. Treat for cystitis discharge home follow-up with primary care for further evaluation of his cirrhosis. Also needs follow-up ultrasound of the left kidney. Lab Data 02/15/24 16:58 02/15/24 16:58 Radiology Impressions Abdomen/Pelvis CT 02/15/24 15:52 IMPRESSION: 1. Mild wall thickening to jejunal and ileal loops. Could be related to mild enteritis or congestive changes from portal hypertension. 2. Punctate nonobstructive right renal stone. 3. Cirrhosis and moderately decompensated portal hypertension. 4. Incidental findings as above. Laboratory Results WBC 3.50 10^3/uL (3.29-11.43) 02/15/24 16:58 RBC 4.14 10^6/uL (3.85-5.65) 02/15/24 16:58 Hgb 10.40 g/dL (11.27-16.99) L 02/15/24 16:58 Hct 34.5 % (37-53) L 02/15/24 16:58 MCV 83.3 fl (82-101) 02/15/24 16:58 MCH 25.1 pg (27-33) L 02/15/24 16:58 MCHC 30.1 g/dL (30-55) 02/15/24 16:58 RDW 18.0 % (12.1-15.1) H 02/15/24 16:58 Plt Count 63 10^3/cmm (157-399) L 02/15/24 16:58 MPV 11.2 fL (7.4-10.4) H 02/15/24 16:58 Neut % (Auto) 70.7 % 02/15/24 16:58 Lymph % (Auto) 16.9 % 02/15/24 16:58 [place] % (Auto) 10.9 % 02/15/24 16:58 Eos % (Auto) 0.9 % 02/15/24 16:58 Baso % (Auto) 0.3 % 02/15/24 16:58 Neut # (Auto) 2.48 10^3/uL (1.8-7.7) 02/15/24 16:58 Lymph # (Auto) 0.6 10^3/uL (0.8-4.8) L 02/15/24 16:58 [place] # (Auto) 0.4 10^3/uL (0.2-0.9) 02/15/24 16:58 Eos # (Auto) 0.0 10^3/uL (0.0-0.8) 02/15/24 16:58 Baso # (Auto) 0.0 10^3/uL (0.0-0.1) 02/15/24 16:58 Nucleated RBC % (auto) 0 % 02/15/24 16:58 Nucleated RBCs # 0.0 /100WBC 02/15/24 16:58 PT 14.50 SECONDS (12.1-14.9) 02/15/24 16:58 INR 1.05 (0.8-1.2) 02/15/24 16:58 Sodium 136 mmol/L (136-145) 02/15/24 16:58 Potassium 3.7 mmol/L (3.5-5.1) 02/15/24 16:58 Chloride 103 mmol/L (98-107) 02/15/24 16:58 Carbon Dioxide 23 mmol/L (22-29) 02/15/24 16:58 Anion Gap 13.7 (5-19) 02/15/24 16:58 BUN 15 mg/dL (8-23) 02/15/24 16:58 Creatinine 0.5 mg/dL (0.7-1.2) L 02/15/24 16:58 GFR Calculation 164.9 mL/min (90-130) H 02/15/24 16:58 Glucose 156 mg/dL (65-115) H 02/15/24 16:58 Calculated Osmolality 286 mOsm/kg (285-295) 02/15/24 16:58 Calcium 8.7 mg/dL (8.5-10.5) 02/15/24 16:58 Total Bilirubin 1.0 mg/dL (0.15-1.2) 02/15/24 16:58 AST 49 U/L (0-40) H 02/15/24 16:58 ALT 35 U/L (0-41) 02/15/24 16:58 Alkaline Phosphatase 130 U/L (40-130) 02/15/24 16:58 Total Protein 5.9 g/dL (6.6-8.7) L 02/15/24 16:58 Albumin 3.4 g/dL (3.5-5.2) L 02/15/24 16:58 Globulin 2.5 g/dL (1.3-4.6) 02/15/24 16:58 Urine Color Yellow (Yellow) 02/15/24 17:44 Urine Appearance Cloudy (CLEAR) A 02/15/24 17:44 Urine pH 6.5 (5-7) 02/15/24 17:44 Ur Specific [place] 1.017 (1.005-1.030) 02/15/24 17:44 Urine Protein 2+ (Negative) A 02/15/24 17:44 Urine Glucose (UA) Negative (Normal) 02/15/24 17:44 Urine Ketones 1+ (Negative) H 02/15/24 17:44 Urine Blood 3+ (Negative) A 02/15/24 17:44 Urine Nitrate Positive (Negative) A 02/15/24 17:44 Urine Bilirubin Negative (Negative) 02/15/24 17:44 Urine Urobilinogen 1.0 mg/dL (Negative) 02/15/24 17:44 Ur Leukocyte Esterase 2+ (Negative) A 02/15/24 17:44 Urine RBC >100 /hpf (0-2) H 02/15/24 17:44 Urine WBC >100 /hpf (0-5) H 02/15/24 17:44 Ur Squamous Epith Cells 0-5 /hpf (0-5) 02/15/24 17:44 Amorphous Sediment Not Reportable 02/15/24 17:44 Urine Bacteria 1+ /hpf (NONE) H 02/15/24 17:44 Hyaline Casts 8.67 /lpf 02/15/24 17:44 All radiology interpretation(s) finalized by discharge Discharge Plan Discharge Patient Disposition: Home Clinical Impression: Cystitis, Cirrhosis Condition: Stable Prescriptions: New ciprofloxacin HCl [Cipro] 500 mg tablet 500 mg PO BID Qty: 14 0RF No Action lisinopril-hydrochlorothiazide 20-25 mg tablet 1 tab PO DAILY omeprazole 20 mg tablet,delayed release (DR/EC) 20 mg PO DAILY finasteride 5 mg tablet 5 mg PO DAILY tamsulosin 0.4 mg capsule 0.4 mg PO DAILY cholecalciferol (vitamin D3) 50 mcg (2,000 unit) capsule 50 mcg PO DAILY milk thistle 150 mg capsule 150 mg PO BID Rx Instructions: give with meal/snack acetaminophen [Tylenol Arthritis Pain] 650 mg tablet extended release 1,300 mg PO Q12H diphenhydramine HCl [Allergy (diphenhydramine)] 25 mg capsule 25 mg PO TID PRN (Reason: allergies) sorbital laxative See Rx Instructions .ROUTE .COMPLEX Rx Instructions: as directed cyclobenzaprine 10 mg tablet 10 mg PO ONCE Ozempic 1 mg/dose (4 mg/3 mL) pen injector 1 mg SUBCUT Q7D Qty: 3 1RF Rx Instructions: 1mg weekly (DME) pen needle, diabetic [Comfort EZ Pen [place]] 32 gauge x 3/16 needle See Rx Instructions .Route Qty: 100 1RF Rx Instructions: As directed Ok to use [facility] preferred Ozempic 0.25 mg or 0.5 mg (2 mg/3 mL) pen injector See Rx Instructions .ROUTE .COMPLEX Qty: 3 3RF Dose Instruction: INJECT 0.5MG UNDER THE SKIN EVERY WEEK FOR 30 DAYS Rx Instructions: INJECT 0.5MG UNDER THE SKIN EVERY WEEK FOR 30 DAYS naproxen [Naprosyn] 500 mg tablet 500 mg PO BID PRN (Reason: pain) Qty: 20 0RF aspirin [Max Low Dose Aspirin] 81 mg Tablet,Delayed Release (Dr/Ec) 81 mg PO DAILY vitamin B complex [B Complex] Capsule 1 cap PO DAILY Discharge Orders: Discharge ED (Routine); Ordered 02/15/24 Ordered By: Arnold Navarro Referrals: Karyn Henson MD [Primary Care Provider] - Discharge Diet: Usual diet Discharge Activity: Increase activity as tolerated Patient Instructions: Opioid Safety, Pain Management Activity Restrictions/Additional Instructions: Thank you for choosing [facility] for your healthcare needs today. It is very important that you follow up as instructed or that you return to the Emergency Department should you have concerns or if your condition changes or worsens in any way. You were seen in the emergency room with concerns about your bladder not draining properly. The [facility] and the one done here included ascites fluid and its calculations. On the CT your bladder is completely decompressed. Your discomfort is coming from a bladder infection that was noted on the urinalysis. Your white count is not elevated. Will start you on oral antibiotics for your bladder. Follow-up with your primary care doctor. Coding Level of Care Code ED Admitting Representative for Lokesh Meyer
--- NOTE | 2024-02-15 15:52 | CTR_ITS ---
PROCEDURE INFORMATION: Exam: CT Abdomen And Pelvis Without Contrast Exam date and time: 02/15/2024 4:31 PM Age: 69 years old Clinical indication: Abdominal pain; Flank; Prior surgery; Surgery date: 6+ months; Surgery type: Bilat hips; Additional info: Flank pain/hematuria TECHNIQUE: Imaging protocol: Computed tomography of the abdomen and pelvis without contrast. Radiation optimization: All CT scans at this facility use at least one of these dose optimization techniques: automated exposure control; mA and/or kV adjustment per patient size (includes targeted exams where dose is matched to clinical indication); or iterative reconstruction. COMPARISON: CT abdomen pelvis wo/w [id number] 05/05/2022 8:54 AM RADIATION DOSE METRICS: Total DLP (mGy-cm): 1213.45 FINDINGS: Limitations: Evaluation of the pelvis (including but not limited to the: urinary bladder, distal ureters, reproductive organs, and rectum/distal sigmoid) is limited due to significant streak artifact. Lungs: Lung bases are clear. Diaphragm: Moderate hiatal hernia. Liver: Liver is enlarged measuring 18 cm. Liver has a nodular contour and there is relative hypertrophy of the caudate lobe, consistent with cirrhosis. Scattered subcentimeter hypodense liver lesions which are too small to characterize. Consider follow-up with ultrasound. Normal variant [place] tail liver. The liver is otherwise unremarkable. Gallbladder and biliary ducts: Gallbladder is normal. There is no evidence of biliary ductal dilation. Pancreas: Benign fatty infiltration of the pancreas. There is no pancreatic duct dilation. Spleen: Spleen is enlarged measuring 20 cm in length. The spleen is otherwise unremarkable. Adrenal glands: Adrenal glands are normal. Kidneys and ureters: Single nonobstructive right renal collecting system stone, measuring 0.3 cm. The right kidney is otherwise unremarkable. Stable intermediate density cystic exophytic structure in the left kidney. Consider follow-up ultrasound if not already performed. There is no evidence of left hydronephrosis. No left renal collecting system stones. There is no perinephric stranding or fluid. No hydroureter. Stomach and bowel: Diffuse colonic diverticulosis. There is no evidence of intestinal obstruction. Mild wall thickening to jejunal and ileal loops. Stomach is decompressed and difficult to evaluate. Duodenum is unremarkable. Appendix: A normal appendix is identified. Intraperitoneal space: Moderate amount of free intraperitoneal fluid. No intraperitoneal fluid collections. There is no free intraperitoneal air. Vasculature: Recanalization of the umbilical vein. Venous portosystemic collaterals in the omentum, periesophageal space, hepato gastric space, perigastric space, and perisplenic space. Mild atherosclerotic calcification of the arterial vasculature. No aortic aneurysms. Lymph nodes: There is no evidence of lymphadenopathy. Urinary bladder: Limited evaluation of the urinary bladder due to streak artifact. Partially seen urinary bladder air and intraluminal Moyer. Urinary bladder is decompressed. Reproductive: Reproductive organs are completely obscured by streak artifact. Bones/joints: Complete bilateral hip arthroplasties without complications. Moderate multilevel degenerative changes of the spine. No acute skeletal abnormality or aggressive osseous lesion. Soft tissues: Mild body wall edema. CT/CT kidney stone [id number] IMPRESSION: 1. Mild wall thickening to jejunal and ileal loops. Could be related to mild enteritis or congestive changes from portal hypertension. 2. Punctate nonobstructive right renal stone. 3. Cirrhosis and moderately decompensated portal hypertension. 4. Incidental findings as above.
[2024-02-15] MEDS: morphine 4 mg/mL SDV 1 mL IVP (16:24)
[2024-02-15 17:03] LABS: Basophils % 0.3 %; Eosinophils % 0.9 %; Hematocrit 34.5 % (37-53); Lymphocytes # 0.6 10^3/uL (0.8-4.8); Lymphocytes % 16.9 %; Mean Corpuscular HGB Conc 30.1 g/dL (30-55); Mean Corpuscular Hemoglobin 25.1 pg (27-33); Mean Corpuscular Volume 83.3 fl (82-101); Mean Platelet Volume 11.2 fL (7.4-10.4); Monocytes # 0.4 10^3/uL (0.2-0.9); Monocytes % 10.9 %; Neutrophils # 2.48 10^3/uL (1.8-7.7); Neutrophils % 70.7 %; Nucleated Red Blood Cells % 0 %; Platelet Count 63 10^3/cmm (157-399); Red Blood Count 4.14 10^6/uL (3.85-5.65)
[2024-02-15 17:28] VITALS: BP 142/81; PULSE 80; RESP 17; O2SAT 99
[2024-02-15 17:28] LABS: Alanine Aminotransferase 35 U/L (0-41); Albumin Level 3.4 g/dL (3.5-5.2); Alkaline Phosphatase 130 U/L (40-130); Anion Gap 13.7 (5-19); Aspartate Amino Transferase 49 U/L (0-40); Blood Urea Nitrogen 15 mg/dL (8-23); Calcium 8.7 mg/dL (8.5-10.5); Carbon Dioxide 23 mmol/L (22-29); Chloride 103 mmol/L (98-107); Creatinine Clr Calc Pharmacy 89.6848; Globulin 2.5 g/dL (1.3-4.6); Glomerular Filtration Rate 164.9 mL/min (90-130); Glucose 156 mg/dL (65-115); Osmolality Calculated 286 mOsm/kg (285-295); Potassium 3.7 mmol/L (3.5-5.1); Sodium 136 mmol/L (136-145); Total Protein 5.9 g/dL (6.6-8.7)
[2024-02-15 17:57] LABS: Bilirubin Urine Negative (Negative); Blood Urine 3+ (Negative); Glucose Urine UA Negative (Normal); Ketones Urine 1+ (Negative); Leukocyte Esterase Urine 2+ (Negative); Nitrate Urine Positive (Negative); Protein Urine 2+ (Negative); Specific Gravity, Urine 1.017 (1.005-1.030); Urine Appearance Cloudy (CLEAR); Urine Color Yellow (Yellow); pH Urine 6.5 (5-7)
[2024-02-15 17:59] LABS: Add Urine Microscopic? YES; Bacteria Urine 1+ /hpf; Hyaline Casts Urine 8.67 /lpf; RBC Urine >100 /hpf (0-2); Squamous Epithelial Cell Urine 0-5 /hpf (0-5); WBC Urine >100 /hpf (0-5)
[2024-02-15 18:00] VITALS: BP 133/84; PULSE 74; RESP 16; O2SAT 97
[2024-02-15 18:04] LABS: UA Slide Review UA Slide Review Perf
[2024-02-15 18:11] LABS: Add Urine Culture? Yes
[2024-02-15 18:30] VITALS: BP 133/84; PULSE 74; O2SAT 97
[2024-02-15 18:48] LABS: INR 1.05 (0.8-1.2)
--- NOTE | 2024-02-18 14:35 | PC.NURSE ---
PATIENT CALLED TO FOLLOW UP WITH PCP IN REGARDS TO ULTRASOUND OF LEFT KIDNEY.
== END 2024-02-15 18:32 | disposition home or self-care (01) ==
PROVIDERS: Emergency Provider Family Medicine; PCP Family Medicine
DX: N30.90 Cystitis, unspecified without hematuria (principal); K74.60 Unspecified cirrhosis of liver; Z79.82 Long term (current) use of aspirin; Z87.891 Personal history of nicotine dependence
CPT/HCPCS: 36415; 74176; 80053; 81001; 85025; 85610; 87086; 96374; 99285; J2270

== ENCOUNTER 2024-04-08 08:25 | Outpatient (CLI) | payer OTHER, SELFPAY ==
[2024-04-08 09:21] LABS: Alanine Aminotransferase 41 U/L (0-41); Albumin Level 3.6 g/dL (3.5-5.2); Alkaline Phosphatase 229 U/L (40-130); Aspartate Amino Transferase 44 U/L (0-40); Blood Urea Nitrogen 10 mg/dL (8-23); Calcium 9.1 mg/dL (8.5-10.5); Carbon Dioxide 26 mmol/L (22-29); Chloride 100 mmol/L (98-107); Cholesterol 91 mg/dL (0-200); Globulin 2.2 g/dL (1.3-4.6); Glomerular Filtration Rate 133.6 mL/min (90-130); Glucose 288 mg/dL (65-115); HDL Cholesterol 48 mg/dL (60-100); LDL Cholesterol Calculated 24 mg/dL (50-129); Osmolality Calculated 288 mOsm/kg (285-295); Sodium 134 mmol/L (136-145); Total Bilirubin 0.5 mg/dL (0.15-1.2); Total Protein 5.8 g/dL (6.6-8.7); Triglycerides 97 mg/dL (0-150)
[2024-04-08 09:22] LABS: Estmated Average Glucose 252; Hemoglobin A1C 10.4 % (4.0-6.0)
[2024-04-08 09:23] LABS: Creatinine Urine, Random 102 mg/dL (39-259); Microalbum Creatinine Ratio Ur 10 mg/dL (0-20); Microalbumin Random Urine 1 ug/dL (0-20)
== END 2024-04-08 08:26 | disposition home or self-care (01) ==
LOC: LAB 08:27
PROVIDERS: PCP Family Medicine; Visit Provider Internal Medicine
DX: E11.9 Type 2 diabetes mellitus without complications (principal)
CPT/HCPCS: 36415; 80053; 80061; 82044; 83036

== ENCOUNTER → 2024-04-12 08:39 | Outpatient (BNVA) | payer OTHER, SELFPAY | PROVIDERS: PCP Family Medicine; Visit Provider Internal Medicine | DX: E11.9 Type 2 diabetes mellitus without complications (principal); K74.60 Unspecified cirrhosis of liver; R63.5 Abnormal weight gain | CPT/HCPCS: 99214 ==

== ENCOUNTER → 2024-07-12 08:49 | Outpatient (BNVA) | payer OTHER, SELFPAY | PROVIDERS: PCP Family Medicine; Visit Provider Internal Medicine | DX: E11.9 Type 2 diabetes mellitus without complications (principal); K74.60 Unspecified cirrhosis of liver; R63.5 Abnormal weight gain | CPT/HCPCS: 36415; 80053; 80061; 82044; 83036; 99214 ==

== ENCOUNTER → 2024-10-11 09:01 | Outpatient (BNVA) | payer OTHER, SELFPAY | PROVIDERS: PCP Family Medicine; Visit Provider Internal Medicine | DX: E11.9 Type 2 diabetes mellitus without complications (principal); R63.5 Abnormal weight gain | CPT/HCPCS: 99214 ==

== ENCOUNTER 2024-11-06 19:35 | Emergency (ER) | payer OTHER, SELFPAY ==
[2024-11-06 19:39] VITALS: BMI 34.8
[2024-11-06 19:40] VITALS: BP 137/72; PULSE 66; RESP 18; TEMP 36.6; O2SAT 100
--- OUTSIDE RECORDS SUMMARY | 2024-11-06 19:51 | XMS_ITS | Patient Health Record ---
Author Organization [facility] Address [address] [place] [address] Care Team Providers Care Drafter Patent Name Role Phone [facility] Demarcus CHAVARRIA Primary Care Provider Un available Samantha Mckeon Unavailable [phone] [place], [place] Unavailable Unavailable Amanuel Hill Unavailable [phone] Marianna Maurer Unavailable [phone] Allergies Allergen (clinical drug ingredient) Drug/Non Drug Allergy documented on EMR Reaction Allergy Type Onset Date Status Tuberculin PPD Unknown Drug Allergy Ac tive Results Component Value Reference Range Flag Notes UA Without Micro-Auto, [place] - [id number] Reviewed date:04/13/2024 01:37:04 PM Interpretation: Performing Lab: Notes/Report: Glucose 0 Bili 0 Ketones 0 Sp [place] 1.010 Blood +- pH 6.5 Protein 0 Urobili 0 Nitrites 0 Leukocytes 0 UA Without Micro-Auto, [place] - [id number] Reviewed date:07/15/2024 10:39:00 AM Interpretation: Performing Lab: Notes/Report: Glucose - Bili - Ketones - Sp [place] 1.015 Blood - pH 6.5 Protein - Urobili - Nitrites - Leukocytes - Prothrombin Time [id number] Reviewed date:05/19/2024 03:12:28 PM Interpretation: Performing Lab: Notes/Report: Diagnosis Description: Unspecified cirrhosis of liver Diagnosis Description: Fatty (change of) liver, not elsewhere classified Diagnosis Description: Abnormal levels of other serum enzymes ProTime 11.5 9.1-11.9 SEC Normal Range : 9.1-11.9 INR 1.09 .90-1.20 Therapeutic Range: 2.0-3.0 Therapaeutic Range for heart valve replacement: 2.5-3.50 [place] [id number] Reviewed date:05/19/2024 03:12:28 PM Interpretation: Performing Lab: Notes/Report: Diagnosis Description: Unspecified cirrhosis of liver Diagnosis Description: Fatty (change of) liver, not elsewhere classified Diagnosis Description: Abnormal levels of other serum enzymes Alpha Feto Prot 6.6 2.2-8.1 ng/mL Perfor med on Siemens Atellica Solution IM Basic Metabolic Panel (BMP) 05128 Reviewed date:05/19/2024 03:12:28 PM Interpretation: Performing Lab: Notes/Report: Diagnosis Description: Unspecified cirrhosis of liver Diagnosis Description: Fatty (change of) liver, not elsewhere classified Diagnosis Description: Abnormal levels of other serum enzymes Sodium 137 136-145 MMOL/L Potassium 3.9 3.5-5.1 MMOL/L Chloride 102 98-107 MMOL/L CO2 27.6 20.0-31.0 MMOL/L Glucose Serum 253 71-110 MG/DL HI Testing p erformed at [facility] [place], [address] [place] [address] [place] [address]. CLIA ID#: [id number] BUN 11 7-21 MG/DL Creat .77 .57-1.17 MG/DL N-yxoswg-e-benzoquinone imine (NAPQI) is a metabolite of acetaminophen, NAPQI concentrations of apparoximately 10 mg/L correlation to toxic levels of acetaminophen demonstrates a greater than or equil to 10% change in results. NAPQI concentrations greater than this may lead to falsely depressed results for patient samples. Use of this assay is not recommended for patients undergoing treatment with phenindione, due to the potential for falsely depressed results. GFR 96.9 NA Calculation pe rformed from GFR calculator provided by the [employer]. Glomerular Filtration rate(GRF) is the best overall index of kidney function. Normal GFR varies according to age,sex, body size, and declines with age. The [employer] recommends using the CKD-EPI Creatinine Equation(2020) to estimate GFR. Anion Gap 11 5-15 BUN/Creat Ratio 14.3 12.0-20.0 % Calcium 9.2 8.7-10.4 MG/DL Osmo Serum,Calculated 292 280-300 MOSM/KG CBC w\ Auto Diff [id number] Reviewed date:05/19/2024 03:12:28 PM Interpretation: Performing Lab: Notes/Report: Diagnosis Description: Unspecified cirrhosis of liver Diagnosis Description: Fatty (change of) liver, not elsewhere classified Diagnosis Description: Abnormal levels of other serum enzymes WBC 3.7 4.5-11.0 X10'3 LOW RBC 4.33 4.50-5.90 X10'6 LOW Hgb 11.3 13.5-17.5 G/DL LOW Hct 36.1 41.0-53.0 % LOW MCV 83.4 80.0-100.0 FL MCH 26.1 27.0-31.0 PG LOW MCHC 31.3 31.0-37.0 G/DL Platelet 59 150-400 X10'3 LOW RDW-SD 53.7 35.0-49.0 FL HI RDW-CV 17.4 12.2-15.6 % HI MPV 12.0 9.2-12.0 FL Neutro Auto% 66.5 40.0-70.0 % Lymph Auto% 20.3 22.0-44.0 % LOW Darke Auto% 8.4 3.0-7.0 % HI Eos Auto% 3.8 2.0-4.0 % Baso Auto% 0.5 0.0-1.0 % Imm Gran% .5 .0-.4 % HI Neutro Abs 2.46 .80-7.70 Absolute Neutrophil Count 2460 NA Lymph Abs .75 .10-4.10 Darke Abs .31 .20-1.00 Eos Abs .14 .00-.40 Baso Abs .02 .00-.20 Imm Gran Abs .02 .00-.10 NRBC# .00 .00-.20 NRBC% .00 .00-.20 /100 int act WBC's Hepatic Function Panel [id number] Reviewed date:05/19/2024 03:12:28 PM Interpretation: Performing Lab: Notes/Report: Diagnosis Description: Unspecified cirrhosis of liver Diagnosis Description: Fatty (change of) liver, not elsewhere classified Diagnosis Description: Abnormal levels of other serum enzymes Total Protein 6.0 5.8-8.0 G/DL Albumin 3.9 3.2-4.8 G/DL Bili Total .8 .3-1.2 MG/DL Use of this assay is not recommended for patients undergoing treatment with eltrombopag due to the potential for falsely elevated results. Bili Direct .40 .05-.40 MG/DL Alk Phos 231 46-116 HI AST/SGOT 54 15-37 UNIT/L HI ALT/SGPT 54 12-78 UNIT/L Immature PLT Fraction [id number] Reviewed date:05/18/2024 10:44:16 AM Interpretation: Performing Lab: Notes/Report: Immature PLT Fraction 7.2 1.6-7.1 % HI Platelet 59 150-400 X10'3 LOW Reason For Referral Reason Retention of urine Diagnosis 1 Retention of urine, unspecified (R33.9) Referring Provider First Name Nebo Cm ff Referring Provider Last Name [place] Referring Provider [facility] Referred Organization [facility] Referred Provider Amanuel Hill Referred Address [address] [address],[place],[address], Referred Provider Specialty Urology Referral Priority Routine Reason 1yr F/U-CHAUDHARI Referring Provider First Name Nebo Cm ff Referring Provider Last Name NV Referring Provider [facility] Referred Organization [facility] Referred Provider Samantha Mkceon Referred Address [address],[facility] [place],[address], Referral Priority Routine Medications Medication SIG (Take, Route, Frequency, Duration) Notes Start Date End Date Status Finasteride 5 MG Tablet 1 tablet Orally Once a day Not-Takin g Cyclobenzaprine HCl 10 MG Tablet 1 tablet at bedtime as needed Orally Once a day Active Aspirin 81 MG Tablet Delayed Release 1 tablet Orally Once a day Active Vitamin D3 25 MCG (1000 UT) Capsule 1 capsule Orally Once a day Active Constulose 10 GM/15ML Solution 15 mL as needed Orally Once a day Not-Takin g 24 HR Naproxen 500 MG Extended Release Tablet 24 HR Naproxen 500 MG Extended Release Tablet 11/12/19 19 Not-Takin g Finasteride 5 MG Tablet 1 tablet Orally Once a day; Duration: 90 days 07/16/19 25 026 Active Ozempic (1 MG/DOSE) 4 MG/3ML Solution Pen-injector as directed Subcutaneous once a week Has cut dose in half per PCP Active Omeprazole 20 MG Capsule Delayed Release 1 capsule 30 minutes before morning meal Orally Once a day Not-Takin g Hydrochlorothiazide 25 MG / Lisinopril 20 MG Oral Tablet Hydrochlorothiazide 25 MG / Lisinopril 20 MG Oral Tablet 11/12/19 19 Not-Takin g Metoprolol Succinate ER 25 MG Tablet Extended Release 24 Hour 1/2 tablet Orally Once a day Active Keto Weight loss pill once a day Not-Takin g Lisinopril-hydroCHLOROt hiazide 20-25 MG Tablet 1 tablet Orally Once a day Active Iron 28 MG Tablet 1 tablet Orally Once a day Not-Takin g Lantus SoloStar 100 UNIT/ML Solution Pen-injector as directed Subcutaneous daily Active Tamsulosin HCl 0.4 MG Capsule 1 capsule Orally Once a day; Duration: 90 days 07/16/19 25 026 Active Mariluz crystalized root to help with stomach Active NovoLOG 100 UNIT/ML Solution as directed Injection daily Active Naproxen 500 MG Tablet 1 tablet with food or milk as needed Orally every 12 hrs Active Multivitamin - Tablet 1 tablet Orally Once a day Active Tamsulosin HCl 0.4 MG Capsule 1 capsule Orally Once a day Active Milk Thistle 500 MG Capsule as directed Orally once a day Active Potassium 99 MG Tablet 1 tablet Orally Once a day Not-Takin g Immunizations Vaccine Route Administration Date Status Comme nts Flu vaccine no Preserv 3 and > Unknown 11/09/2018 Admin istered Pneumococcal conjugate PCV 13 Unknown 11/09/2017 Admini stered Social History Tobacco Use: Social History Observation Description Date Details (start date - stop date) Former Smoker NA - NA Social History Depression Screening Social Info Question Answer Notes PHQ-9 Little interest or pleasure in doing thin gs Not at all Feeling down, depressed, or hopeless Not at all Trouble falling or staying asleep, or sleeping t oo much Several days Feeling tired or having little energy Not at all Poor appetite or overeating Several days Feeling bad about yourself, or that you are a failure, or have let yourself or your family down Several days Trouble concentrating on thi ngs, such as reading the newspaper or watching television Several days Moving or speaking so slowly that other people could have noticed. Or the opposite ? being so fidgety or restless that you have been moving around a lot more than usual Not at all Thoughts that you would be b sameer off , or of hurting yourself in some way Not at all Total Score 4 Interpretation Minimal Depression Drugs/Alcohol: Social Info Question Answer Notes Alcohol Screen (Audit-C) Did you have a drink containing alcohol in the past year? No Points 0 Interpretation Negative Caffeine Intake: 1-2 cups per day Coffee. Tea Tobacco Use: Social Info Question Answer Notes Tobacco Control (Standard) Tobacco use: Former smoker Additional Details Category Social Info Options Details Miscellaneous: Marital status: Occupation: Retired Drugs/Alcohol: Do you smoke marijuana? Ad mits, gummies for pain zzMigrated Social History Migrated Social History Smoking Status:Ex-smoker (finding) Problems Problem Type SNOMED Code ICD Code Onset Dates Problem Status W/U Status Risk Notes Problem Oesophageal varices without bleeding (48773350) Secondary esophageal varices without bleeding (I85.10) Active confirmed Problem disorder of stomach (89975048) Other diseases of stomach and duodenum (K31.89) Active confirmed Problem Cirrhosis of liver (80617777) Unspecified cirrhosis of liver (K74.60) Active confirmed Problem CHAUDHARI - Nonalcoholic steatohepatitis (481934242) Nonalcoholic steatohepatitis (CHAUDHARI) (K75.81) Active confirmed Problem Portal hypertension (31125071) Portal hypertension (K76.6) Active confirmed Problem Benign prostatic hypertrophy without outflow obstruction (102747633) Benign prostatic hyperplasia without lower urinary tract symptoms (N40.0) Active confirmed Problem Lumbar spondylosis (025044671) Lumbar spondylosis (M47.816) Active confirmed Problem Esophageal varices without bleeding (15113067) Esophageal varices determined by endoscopy (I85.00) Active confirmed Problem Obstructive sleep apnea syndrome (32951755) AUGUST (obstructive sleep apnea) (G47.33) Active confirmed Problem Gastroesophageal reflux disease (478867773) Gastroesophageal reflux disease, unspecified whether esophagitis present (K21.9) Active confirmed Problem Fatty liver (089530546) 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) Active confirmed Problem Esophageal varices without bleeding (96783403) Esophageal varices without bleeding, unspecified esophageal varices type (I85.00) Active confirmed Problem Primary osteoarthritis (244016233) Primary osteoarthritis involving multiple joints (M15.0) Active confirmed Problem Obese class I (finding) (150068168785088) Obesity (BMI 30.0-34.9) (E66.9) Active confirmed Problem Gastroesophageal reflux disease (103346294) Gastroesophageal reflux disease, esophagitis presence not specified (K21.9) Active confirmed Problem Obstructive sleep apnea (61107923) Obstructive sleep apnea (G47.33) Active confirmed Problem Urinary retention (862580049) Urinary retention (R33.9) Active confirmed Problem Screening for malignant neoplasm of colon (757745332) Screening for malignant neoplasm of colon (Z12.11) Active confirmed Problem Essential hypertension (08773748) Essential hypertension (I10) Active confirmed Problem Lower urinary tract symptoms due to benign prostatic hypertrophy (58278851945006) Benign prostatic hyperplasia with lower urinary tract symptoms (N40.1) Active confirmed Problem Frequency of micturition (787297721) Frequency of micturition (R35.0) Active confirmed Problem Worthy's esophagus (112991567) 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 Problem Type II diabetes mellitus without complication (647376567) Type 2 diabetes mellitus without complications (E11.9) Active confirmed Vital Signs Heart Rate 95 /min 07/15/2024 Temperature 98.4 degrees Fahrenheit 07/15/2024 Respiratory Rate 20 /min 05/11/2024 Oximetry 96 % 05/11/2024 Height-cm 182.88 cm 07/15/2024 Blood pressure diastolic 83 mm Hg 07/15/2024 Weight-kg 104.24 kg 07/15/2024 Height 72 in 07/15/2024 Blood pressure systolic 128 mm Hg 07/15/2024 Weight 229.8 lbs 07/15/2024 BMI 31.16 kg/m2 07/15/2024 Procedures Procedure Date Ordered Date Performed Result Body Sit e PVR (Post Void Residual) 04/13/2024 04/13/2024 N/A PVR (Post Void Residual) 07/15/2024 07/15/2024 116mL Encounters Encounter Location Date Provider Diagnosis [facility] [address] [place] [address] 04/13/2024 Marianna Maurer Benign prostatic hyperplasia with lower urinary tract symptoms N40.1 and Urinary retention R33.9 [facility] [address] [address] 05/11/2024 Abodunrin Badejo Unspecified cirrhosis of liver K74.60 ; Metabolic dysfunction-associated steatotic liver disease (MASLD) K76.0 ; Gastroesophageal reflux disease, esophagitis presence not specified K21.9 ; Portal hypertension K76.6 ; Obstructive sleep apnea G47.33 ; Benign prostatic hyperplasia with lower urinary tract symptoms N40.1 ; Primary osteoarthritis involving multiple joints M15.0 ; Essential hypertension I10 ; Type 2 diabetes mellitus without complications E11.9 and Urinary retention R33.9 [facility] [address] [place] [address] [place] [address] 07/15/2024 Marianna Maurer Benign prostatic hyperplasia with lower urinary tract symptoms N40.1 ; Urinary retention R33.9 and Frequency of micturition R35.0 [facility] [address] [place] [address] [place] [address] 03/21/2024 Amanuel Hill [facility] [address] [place] [address] [place] [address] 04/12/2024 Amanuel [facility] [address] [address] 05/10/2024 Abodunrin Badejo Unspecified cirrhosis of liver K74.60 ; Fatty liver K76.0 and Elevated liver enzymes R74.8 [facility] [address] [place] [address] [place] [address] 07/14/2024 Amanuel Rosasay [facility] [address] [place] [address] [place] [address] 07/15/2024 Amanuel Hill Encounter for screening for malignant neoplasm of prostate Z12.5 Assessments Encounter Date Diagnosis (ICD Code) Assessment Notes Treatment Notes Treatment Clinical Notes Section Notes 04/13/2024 Benign prostatic hyperplasia with lower urinary tract symptoms (ICD-10 - N40.1) PLAN - PATIENT WILL start taking tamsulosin as prescribed at bedtime for 3 months, will follow up with UA and PVR 04/13/2024 Urinary retention (ICD-10 - R33.9) PLAN - PATIENT WILL CONTINUE start taking tamsulosin as prescribed at bedtime for 3 months, will follow up with UA and PVR 05/10/2024 Unspecified cirrhosis of liver (ICD-10 - K74.60) 05/11/2024 Unspecified cirrhosis of liver (ICD-10 - K74.60) 05/11/2024 Metabolic dysfunction-associat ed steatotic liver disease (MASLD) (ICD-10 - K76.0) 07/15/2024 Benign prostatic hyperplasia with lower urinary tract symptoms (ICD-10 - N40.1) PLAN - CONTINUE TO TAKE MEDICATION PRESCRIBED. 07/15/2024 Urinary retention (ICD-10 - R33.9) Patient may come to the clinic for nurse visit if he feels they feel they are not emptying and need to have their bladder checked 07/15/2024 Encounter for screening for malignant neoplasm of prostate (ICD-10 - Z12.5) 07/15/2024 Frequency of micturition (ICD-10 - R35.0) PLAN - CONTINUE TO TAKE MEDICATION PRESCRIBED. 05/11/2024 Gastroesophageal reflux disease, esophagitis presence not specified (ICD-10 - K21.9) 05/10/2024 Fatty liver (ICD-10 - K76.0) 05/10/2024 Elevated liver enzymes (ICD-10 - R74.8) 05/11/2024 Portal hypertension (ICD-10 - K76.6) 05/11/2024 Obstructive sleep apnea (ICD-10 - G47.33) 05/11/2024 Benign prostatic hyperplasia with lower urinary tract symptoms (ICD-10 - N40.1) 05/11/2024 Primary osteoarthritis involving multiple joints (ICD-10 - M15.0) 05/11/2024 Essential hypertension (ICD-10 - I10) 05/11/2024 Type 2 diabetes mellitus without complications (ICD-10 - E11.9) 05/11/2024 Urinary retention (ICD-10 - R33.9) 04/13/2024 Other PATIENT WILL FOLLOW UP IN 3 months with UA and PVR 05/11/2024 Other Laboratory investigations from earlier today as follows: WBC 3 hemoglobin 11 hematocrit 36 MCV 83 platelets 59 PT 11.5 INR 1.09 Sodium 137 BUN 11 creatinine 0.77 Total bilirubin 0.8 Alkaline phosphatase 231 AST 54 ALT 54 total protein 6.0 albumin 3.9 Alpha-fetoprotein 6.6. The report of the last EGD performed in December 2022 was reviewed and noted. Scars of previous variceal band ligations were noted in the mid and distal esophagus. No residual esophageal varices noted. Portal hypertensive gastropathy noted. Colonoscopy from 2019 was significant for diverticular disease and internal hemorrhoids. The patient's disease appears to be stable at this time. He is advised to improve his glycemic control. He is advised to avoid potential hepatotoxic medications and supplements. We will schedule the patient for follow-up EGD later this year. We will see the patient back in the clinic in 1 year. He is advised to call if he has acute GI complaints or concerns. 07/15/2024 Other PATIENT WILL FOLLOW UP IN 6 MONTHS WITH PSA, UA, PVR, MARIAN Plan Of Treatment Pending Test Test Name Order Date PSA Diagnostic--[id number] 07/15/2024 zzzMRI Outside CD 10/22/2022 Future Test Test Name Order Date EGD, Upper GI Diagnostic-90174 5 Prothrombin Time 06342 05/11/2025 Alpha Fetoprotein Tumor Marker 37069 03/2025 Basic Metabolic Panel (BMP) 12895 2025 CBC w\ Auto Diff 88421 05/11/2025 Hepatic Function Panel 03100 05/11/2025 Next Appt Details Provider Name:Samantha hatch, 12/16/2024 11:30:00 AM, [address], [place], [address], Provider Name:Marianna Gibbs, 01/16/2025 10:20:00 AM, [address], [place], [address], Provider Name:Samantha hatch, 05/17/2025 09:00:00 AM, [address], [place], [address], Insurance Providers Payer Name Payer Address Payer Phone Subscriber Number Group Number Insured Name Patient Relationship to Insured Coverage Start Date Coverage End Date [employer] [address] [place] [phone] [id number] Renny Holm Self - patient is the insured [facility] C3 [address] [place] [address] [id number] Gastro Amended Renny Green Self - patient is the insured 0 1 Medical (General) History Medical History History ICD Code Anxiety Disorder of liver Heart disease Kidney stone Osteoporosis Sleep apnea Steatosis of liver Arthritis Heart disease BPH (benign prostatic hyperplasia) N40.0 type II diabetes hx inguinal hernia Surgical History Surgery Date(Month/Year) bilateral inguinal hernia repair left shoulder arthroplasty bilateral hip replacement 07/2020 EGD-portal hypertensive alfonzo ropathy, non-bleeding diverticulum, scars mid esophagus-distal esophagus 04-28-2019 Colonoscopy-diverticulosis left colon, i nternal hemorrhoids 04-28-2019 Hospitalization History Reason Date(Month/Year) [facility] in February ER for back.
--- NOTE | 2024-11-06 20:49 | CTR_ITS ---
PROCEDURE INFORMATION: Exam: CT Chest With Contrast; Diagnostic Exam date and time: 11/06/2024 9:50 PM Age: 69 years old Clinical indication: Vomiting; Abdominal pain; Prior surgery; Surgery date: 6+ months; Surgery type: Total shoulder. Bilat matthew; Epigastric pain with copious hematemesis; Additional info: Vomiting/coughing up blood TECHNIQUE: Imaging protocol: Diagnostic computed tomography of the chest with contrast. Radiation optimization: All CT scans at this facility use at least one of these dose optimization techniques: automated exposure control; mA and/or kV adjustment per patient size (includes targeted exams where dose is matched to clinical indication); or iterative reconstruction. Contrast material: OMNI 350; Contrast volume: 100 ml; Contrast route: INTRAVENOUS (IV); COMPARISON: CT kidney stone [id number] 02/15/2024 4:31 PM RADIATION DOSE METRICS: Total DLP (mGy-cm): 1441.06 FINDINGS: Lungs: There is no focal pulmonary consolidation. No lung masses are identified. Pleural spaces: Unremarkable. No pneumothorax. No pleural effusion. Heart: The heart is normal in size. There are no pericardial fluid collections. Esophagus: There is a small sliding hiatal hernia. There are thickening of the distal esophagus and paraesophageal varices. Mediastinal space: There are no enlarged mediastinal lymph nodes or masses. Lymph nodes: There are no enlarged hilar lymph nodes. Vasculature: Unremarkable. No aortic aneurysm, no dissection or penetrating ulcer. Liver: No enhancing masses are seen. Bones/joints: Unremarkable. No acute fracture. A partially included left shoulder arthroplasty is present. There is segmental ossification of the anterior longitudinal ligament consistent with benign diffuse idiopathic skeletal hyperostosis (DISH). Soft tissues: Unremarkable. PROCEDURE INFORMATION: Exam: CT Abdomen And Pelvis With Contrast Exam date and time: 11/06/2024 9:50 PM Age: 69 years old Clinical indication: Vomiting; Abdominal pain; Prior surgery; Surgery date: 6+ months; Surgery type: Total shoulder. Bilat matthew; Epigastric pain with copious hematemesis; Additional info: Vomiting/coughing up blood TECHNIQUE: Imaging protocol: Computed tomography of the abdomen and pelvis with contrast. Radiation optimization: All CT scans at this facility use at least one of these dose optimization techniques: automated exposure control; mA and/or kV adjustment per patient size (includes targeted exams where dose is matched to clinical indication); or iterative reconstruction. Contrast material: OMNI 350; Contrast volume: 100 ml; Contrast route: INTRAVENOUS (IV); COMPARISON: CT kidney stone [id number] 02/15/2024 4:31 PM RADIATION DOSE METRICS: Total DLP (mGy-cm): 1441.06 FINDINGS: Lungs: No consolidation in the visualized lung bases. Esophagus: Thickening of the distal esophagus with a gastroesophageal hernia and paraesophageal varices consistent cirrhosis and portal hypertension. Liver: Shrunken, macronodular cirrhotic liver. In the left lobe of the liver, there is a 7 mm simple appearing cyst. Multiple additional subcentimeter hypodensities are seen throughout the liver, too small to characterize. Gallbladder and biliary ducts: No calcified stones. No ductal dilation. Pancreas: Normal in size and homogeneous enhancement. No ductal dilation. Spleen: The spleen is severely enlarged, measuring 18.7 cm in oblique length. There are no enhancing splenic lesions. Adrenal glands: Normal. No mass. Kidneys and ureters: There is no hydronephrosis. In the right kidney, there is a punctate 3 mm nonobstructive calculus. Stable 1.8 cm exophytic non simple cyst of the left kidney, characterized as a Bosniak 2 lesion on the comparison examination. No follow-up is recommended. Stomach and bowel: No evidence of small bowel or colonic obstruction. Wall thickening of multiple bowel loops and the colon with pericolonic stranding consistent with enterocolitis. There is mild diverticulosis of the distal colon without acute diverticulitis. Appendix: No evidence of appendicitis. Intraperitoneal space: No free air. A small amount of free fluid in the mesentery, particularly in the paracolic gutters and in the pelvis. Vasculature: There is no abdominal aortic aneurysm. Gastric hilum and paraesophageal varices are present. There is recannulization of the paraumbilical veins and prominent caput medusa consistent with portal hypertension. Lymph nodes: No enlarged retroperitoneal or mesenteric lymph nodes. Urinary bladder: There is mild bladder wall thickening. Reproductive: Unremarkable as visualized. Bones/joints: No acute fracture. Bowel hip arthroplasties appear in near anatomic alignment. Streak artifact limits evaluation. Soft tissues: Normal. CT/CT chest abdpel w/*[id number] IMPRESSION: 1. Thickening and irregularity of the distal esophagus and paraesophageal varices. This is likely secondary to cirrhosis of the liver however, underlying neoplasm is not excluded. 2. No acute cardiopulmonary findings. IMPRESSION: 1. Shrunken cirrhotic liver and marked splenomegaly. 2. Splenic hilum, paraesophageal varices and recannulization of the paraumbilical veins with caput medusa consistent with significant portal hypertension. Hematemesis likely related to prominent paraesophageal varices. 3. Enterocolitis, possibly related to hypoalbuminemia of chronic liver disease. 4. Mild ascites. 5. Multiple subcentimeter liver hypodensities, too small to characterize. In a low-risk patient, this is most likely to be benign and no further follow-up is recommended. In a high-risk patient, follow-up MRI in 3-6 months is recommended (or earlier if warranted by the patient's specific clinical circumstances). (Reference: Jessika) 6. Wall thickening of multiple bowel loops and the colon with pericolonic stranding consistent with enterocolitis. Hypoalbuminemia of chronic liver disease may be a contributing factor. 7. Bladder wall thickening suggesting cystitis, incomplete distention or chronic outflow obstruction. REFERENCES: Jessika CARTER, et al. Management of Incidental Liver Lesions on CT: A White Paper of the ACR Incidental Findings Committee. J Am Ben Radiol. 2017;14(11):2431-0887.
[2024-11-06 20:59] LABS: Hematocrit 34.8 % (37-53); Hemoglobin 11.10 g/dL (11.27-16.99); Mean Corpuscular HGB Conc 31.9 g/dL (30-55); Mean Corpuscular Hemoglobin 26.9 pg (27-33); Mean Corpuscular Volume 84.3 fl (82-101); Nucleated Red Blood Cells % 0 %; Platelet Count 108 10^3/cmm (157-399); Red Blood Count 4.13 10^6/uL (3.85-5.65); White Blood Count 11.36 10^3/uL (3.29-11.43)
[2024-11-06 21:08] VITALS: RESP 18
[2024-11-06] MEDS: ondansetron 2 mg/ML SDV 2 mL 4 MG IVP (21:08)
[2024-11-06] MEDS: morphine 4 mg/mL SDV 1 mL IVP (21:08)
[2024-11-06 21:10] VITALS: BP 105/76; PULSE 99; RESP 20; O2SAT 100
[2024-11-06 21:20] LABS: INR 1.10 (0.8-1.2); Partial Thromboplastin Time 30.9 SECONDS (23.9-36.7); Prothrombin Time 15.00 SECONDS (12.1-14.9)
[2024-11-06 21:30] LABS: Alanine Aminotransferase 27 U/L (0-41); Albumin Level 3.8 g/dL (3.5-5.2); Alkaline Phosphatase 117 U/L (40-130); Aspartate Amino Transferase 35 U/L (0-40); Blood Urea Nitrogen 17 mg/dL (8-23); Calcium 8.8 mg/dL (8.5-10.5); Carbon Dioxide 23 mmol/L (22-29); Chloride 100 mmol/L (98-107); Creatinine Clr Calc Pharmacy 111.6021; Globulin 2.4 g/dL (1.3-4.6); Glucose 162 mg/dL (65-115); Lipase 24 U/L (13-60); Osmolality Calculated 285 mOsm/kg (285-295); Sodium 135 mmol/L (136-145); Total Protein 6.2 g/dL (6.6-8.7)
[2024-11-06 21:32] LABS: Anion Gap 15.9 (5-19); Potassium 3.9 mmol/L (3.5-5.1)
[2024-11-06] MEDS: pantoprazole 40 mg SDV 80 MG IVP (21:38)
[2024-11-06] MEDS: metoclopramide 5 mg/mL SDV 2 mL 10 MG IVP (21:39)
[2024-11-06 21:40] VITALS: BP 144/106; PULSE 102; RESP 18; O2SAT 99
[2024-11-06] MEDS: iohexol 350 mg/mL 500 mL Btl (per mL) IV (21:52)
--- NOTE | 2024-11-06 21:59 | W.ED.NAVMDI ---
Documented by User: PATRICIA Johnson 11/07/24 01:24 HPI - Nausea/Vomiting/Diarrhea General: Chief complaint: Nausea/Vomiting/Diarrhea Stated complaint: Vomiting Blood Time Seen by Provider: 11/06/24 19:41 Source: patient Mode of arrival: ambulatory Limitations: no limitations History of Present Illness: Patient is a 69-year-old male with past medical history of liver cirrhosis who presents the emergency department complaining of hematemesis onset today. Also states he has been having diffuse abdominal pain and black tarry stools, as well as some bright red blood in his stools. He is also reporting a history of diverticulitis. States that annually he has endoscopy, he however has not had one for a year and a half. Overall he is a poor historian and cannot be specific with the onset of his symptoms, but is noted to be actively vomiting bright red blood at this time. Denies blood thinner use, states he just takes aspirin. He denies any recent alcohol use. MD elicited complaint: nausea, vomiting and abdominal pain Pertinent past history: other (Diverticulitis/liver cirrhosis) Onset (ago): hour(s) Description of vomiting: bloody Description of diarrhea: blood and black tarry Associated nausea: Yes Associated abdominal pain: Yes Location of pain: Diffuse Associated symtoms: Reports nausea; Denies chest pain, fatigue, malaise, palpitations or syncope Related Data Home Medications ?Medication ?Instructions ?Recorded ?Confirmed acetaminophen 650 mg 1,300 mg PO Q12H 04/22/21 10/11/24 tablet,extended release (Tylenol Arthritis Pain) cholecalciferol (vitamin D3) 50 50 mcg PO DAILY 04/22/21 10/11/24 mcg (2,000 unit) capsule diphenhydramine HCl 25 mg capsule 25 mg PO TID PRN allergies 04/22/21 10/11/24 (Allergy (diphenhydramine)) finasteride 5 mg tablet 5 mg PO DAILY 04/22/21 10/11/24 lisinopril 20 1 tab PO DAILY 04/22/21 10/11/24 mg-hydrochlorothiazide 25 mg tablet milk thistle 150 mg capsule 150 mg PO BID 04/22/21 10/11/24 omeprazole 20 mg tablet,delayed 20 mg PO DAILY 04/22/21 10/11/24 release tamsulosin 0.4 mg capsule 0.4 mg PO DAILY 04/22/21 10/11/24 sorbital laxative See Rx Instructions .Route .COMPLEX 11/05/22 10/11/24 cyclobenzaprine 10 mg tablet 10 mg PO ONCE 08/17/23 10/11/24 aspirin 81 mg tablet,delayed 81 mg PO DAILY 02/15/24 10/11/24 release (Max Low Dose Aspirin) vitamin B complex 1 cap PO DAILY 02/15/24 10/11/24 Previous Rx's ?Medication ?Instructions ?Recorded naproxen 500 mg tablet (Naprosyn) 500 mg PO BID PRN pain #20 tabs 02/25/21 blood-glucose sensor (Dexcom G7 #3 ea 06/30/24 Sensor device) blood-glucose,television repair teacher,cont #1 ea 06/30/24 (Dexcom G7 Clergy Member) insulin aspart U-100 100 unit/mL 2 unit (0.02 mL) SUBCUT .TIDAC 1 10/07/24 (3 mL) subcutaneous pen (Novolog month #15 mL FlexPen U-100 Insulin aspart) insulin glargine-yfgn 100 unit/mL See Rx Instructions .Route 10/11/24 (3 mL) subcutaneous pen .COMPLEX #15 mL semaglutide 1 mg/dose (4 mg/3 mL) 1 mg (0.75 mL) SUBCUT Q7D #3 mL 10/11/24 subcutaneous pen injector (Ozempic) pen needle, diabetic 32 gauge x #100 ea 10/24/24 Allergies Allergy/AdvReac Type Severity Reaction Status Date / Time tuberculin, purified protein Allergy Unknown Verified 07/11/24 15:27 deriva Review of Systems General: Reports: 10 or more systems reviewed and unremarkable except in HPI and below Const: Denies: fever(s), chills, fatigue or malaise ENMT: Denies: throat pain, odynophagia or hoarseness Card: Denies: chest pain, palpitations, lightheadedness or syncope Resp: Denies: dyspnea, productive cough or wheezing GI: Reports: abdominal pain, nausea, vomiting, hematemesis, hematochezia and melena; Denies: diarrhea : Denies: flank pain or hematuria Musc: Denies: neck pain PFSH ED PFSH: Social History Smoking and tobacco/nicotine status: never used tobacco/nicotine Alcohol intake: never Substance/Drug Use: never Physical Exam Const: COMMON NORMALS: patient oriented x3, no limitations and alert GENERAL APPEARANCE: cooperative ORIENTATION/CONSCIOUSNESS: Yes awake OTHER: Chronically ill-appearing, mild jaundice. He is actively throwing up bright red blood. Neck/C-Spine: COMMON NORMALS: full ROM, supple, no meningeal signs and no JVD Resp: COMMON NORMALS: normal respiratory effort, No retractions, No use of accessory muscles and clear to auscultation bilaterally AUSCULTATION: clear to auscultation bilaterally, no crackles, no rales, no rhonchi and no wheezes Cardio: COMMON NORMALS: no JVD, regular rate, regular rhythm, No gallops present (Cardio), No clicks present (Cardio), No murmurs present (Cardio), No rub (Cardio) and Peripheral pulses 2+ throughout RATE: regular rate RHYTHM: regular rhythm PERIPHERAL PULSES: Peripheral pulses 2+ throughout GI: COMMON NORMALS: Normal to inspection, nondistended, normoactive bowel sounds present, Soft to palpation, No hepatosplenomegaly present and no masses INSPECTION: Yes central obesity AUSCULTATION: Yes normoactive bowel sounds PALPATION: Yes Soft to palpation, Yes Tenderness to palpation present (GI) (Diffuse), No Guarding due to palpation present (GI), No Rigid due to palpation and Yes No hepatosplenomegaly present RECTAL EXAM: Yes deferred : COMMON NORMALS: Yes no CVA tenderness BLADDER/KIDNEY EXAM: Yes no CVA tenderness Back/Pelvis: COMMON NORMALS: no CVA tenderness Extremity: COMMON NORMALS: normal to inspection and full ROM Neuro: COMMON NORMALS: patient oriented x3, moves all extremities, no focal motor deficits and no sensory deficits noted SENSORIUM/ORIENTATION: Yes alert MENINGEAL SIGNS: Yes no meningeal signs Psych: COMMON NORMALS: mental status grossly normal, cooperative and speech normal SPEECH: Yes normal speech Skin: NARRATIVE SKIN EXAM: Erythema noted to his right wrist, mild skin edema Course Vital Signs: Vital signs: Vital Signs Temperature 98 F 11/06/24 19:40 Pulse Rate 114 H 11/07/24 02:10 Respiratory Rate 18 11/07/24 00:57 Blood Pressure 121/76 11/07/24 02:10 Pulse Oximetry 99 11/07/24 02:10 Oxygen Delivery Me thod Room Air 11/07/24 02:10 MDM - Nausea/Vomiting/Diarrhea Medical Decision Making This patient presents with acute hematemesis beginning today, history of liver cirrhosis, alcohol induced. Overall the history was somewhat limited due to him being poor historian, exam positive for ill-appearing man with mild jaundice and some diffuse abdominal tenderness to palpation. Hemoglobin 11.1, CT scan showing variceal bleeding which he is given octreotide, Protonix, and Rocephin. Due to lack of GI capabilities here, consulted Dr. Tito Wilder who is hospitalist agreed to accept the patient for transfer. He has been hemodynamically stable here in the emergency department, fluids have been administered previously and overall was able to ameliorate his nausea vomiting with Reglan. No pressors. Informed of transfer and all of the questions and concerns addressed at this time. Patient will travel via ground ambulance. Patient was originally seen by Mr. Celena PA-C. I agree with his history, evaluation, and treatment. Lab Data 11/06/24 20:44 11/06/24 20:44 Radiology Impressions Chest/Abdomen/Pelvis CT 11/06/24 20:49 IMPRESSION: 1. Thickening and irregularity of the distal esophagus and paraesophageal varices. This is likely secondary to cirrhosis of the liver however, underlying neoplasm is not excluded. 2. No acute cardiopulmonary findings. IMPRESSION: 1. Shrunken cirrhotic liver and marked splenomegaly. 2. Splenic hilum, paraesophageal varices and recannulization of the paraumbilical veins with caput medusa consistent with significant portal hypertension. Hematemesis likely related to prominent paraesophageal varices. 3. Enterocolitis, possibly related to hypoalbuminemia of chronic liver disease. 4. Mild ascites. 5. Multiple subcentimeter liver hypodensities, too small to characterize. In a low-risk patient, this is most likely to be benign and no further follow-up is recommended. In a high-risk patient, follow-up MRI in 3-6 months is recommended (or earlier if warranted by the patient's specific clinical circumstances). (Reference: Jessika) 6. Wall thickening of multiple bowel loops and the colon with pericolonic stranding consistent with enterocolitis. Hypoalbuminemia of chronic liver disease may be a contributing factor. 7. Bladder wall thickening suggesting cystitis, incomplete distention or chronic outflow obstruction. REFERENCES: Jessika CARTER, et al. Management of Incidental Liver Lesions on CT: A White Paper of the ACR Incidental Findings Committee. J Am Ben Radiol. 2017;14(11):8358-6798. ADDENDUM: 11/06/24 3647 Findings were discussed with SHAYY BYNUM at 11/06/2024 11:43 PM CDT. Laboratory Results WBC 11.36 10^3/uL (3.29-11.43) 11/06/24 20:44 RBC 4.13 10^6/uL (3.85-5.65) 11/06/24 20:44 Hgb 11.10 g/dL (11.27-16.99) L 11/06/24 20:44 Hct 34.8 % (37-53) L 11/06/24 20:44 MCV 84.3 fl (82-101) 11/06/24 20:44 MCH 26.9 pg (27-33) L 11/06/24 20:44 MCHC 31.9 g/dL (30-55) 11/06/24 20:44 RDW 16.1 % (12.1-15.1) H 11/06/24 20:44 Plt Count 108 10^3/cmm (157-399) L 11/06/24 20:44 MPV 12.2 fL (7.4-10.4) H 11/06/24 20:44 Neut % (Auto) 77.6 % 11/06/24 20:44 Lymph % (Auto) 14.5 % 11/06/24 20:44 Woodruff % (Auto) 6.3 % 11/06/24 20:44 Eos % (Auto) 0.7 % 11/06/24 20:44 Baso % (Auto) 0.4 % 11/06/24 20:44 Neut # (Auto) 8.80 10^3/uL (1.8-7.7) H 11/06/24 20:44 Lymph # (Auto) 1.7 10^3/uL (0.8-4.8) 11/06/24 20:44 Woodruff # (Auto) 0.7 10^3/uL (0.2-0.9) 11/06/24 20:44 Eos # (Auto) 0.1 10^3/uL (0.0-0.8) 11/06/24 20:44 Baso # (Auto) 0.1 10^3/uL (0.0-0.1) 11/06/24 20:44 Nucleated RBC % (auto) 0 % 11/06/24 20:44 Nucleated RBCs # 0.0 /100WBC 11/06/24 20:44 PT 15.00 SECONDS (12.1-14.9) H 11/06/24 20:44 INR 1.10 (0.8-1.2) 11/06/24 20:44 APTT 30.9 SECONDS (23.9-36.7) 11/06/24 20:44 Sodium 135 mmol/L (136-145) L 11/06/24 20:44 Potassium 3.9 mmol/L (3.5-5.1) 11/06/24 20:44 Chloride 100 mmol/L (98-107) 11/06/24 20:44 Carbon Dioxide 23 mmol/L (22-29) 11/06/24 20:44 Anion Gap 15.9 (5-19) 11/06/24 20:44 BUN 17 mg/dL (8-23) 11/06/24 20:44 Creatinine 0.7 mg/dL (0.7-1.2) 11/06/24 20:44 GFR Calculation 111.8 mL/min (90-130) 11/06/24 20:44 Glucose 162 mg/dL (65-115) H 11/06/24 20:44 Calculated Osmolality 285 mOsm/kg (285-295) 11/06/24 20:44 Calcium 8.8 mg/dL (8.5-10.5) 11/06/24 20:44 Total Bilirubin 1.3 mg/dL (0.15-1.2) H 11/06/24 20:44 AST 35 U/L (0-40) 11/06/24 20:44 ALT 27 U/L (0-41) 11/06/24 20:44 Alkaline Phosphatase 117 U/L (40-130) 11/06/24 20:44 Total Protein 6.2 g/dL (6.6-8.7) L 11/06/24 20:44 Albumin 3.8 g/dL (3.5-5.2) 11/06/24 20:44 Globulin 2.4 g/dL (1.3-4.6) 11/06/24 20:44 Lipase 24 U/L (13-60) 11/06/24 20:44 Urine Color Yellow (Yellow) 11/06/24 22: Urine Appearance Clear (CLEAR) 11/06/24 22:28 Urine pH 7.5 (5-7) 11/06/24 22: Ur Specific Freedom 1.061 (1.005-1.030) H 11/06/24 22: Urine Protein Negative (Negative) 11/06/24 22: Urine Glucose (UA) Negative (Normal) 11/06/24 22: Urine Ketones Trace (Negative) 11/06/24 22: Urine Blood Negative (Negative) 11/06/24 22: Urine Nitrate Negative (Negative) 11/06/24 22: Urine Bilirubin Negative (Negative) 11/06/24 22:28 Urine Urobilinogen 0.2 mg/dL (Negative) 11/06/24 22:28 Ur Leukocyte Esterase Negative (Negative) 11/06/24 22: Urine RBC 0-2 /hpf (0-2) 11/06/24 22:28 Urine WBC 0-5 /hpf (0-5) 11/06/24 22:28 Ur Squamous Epith Cells 0-5 /hpf (0-5) 11/06/24 22: Amorphous Sediment Not Reportable 11/06/24 22:28 Urine Bacteria None seen /hpf (NONE) 11/06/24 22:28 Hyaline Casts 0-4 /lpf H 11/06/24 22:28 Blood Type O Positive 11/06/24 21:05 Rho(D) Type Rh positive 11/06/24 21:05 Antibody Screen Negative 11/06/24 21:05 All radiology interpretation(s) finalized by discharge Discharge Plan Discharge Patient Disposition: Xfer Short-Term Hosp Clinical Impression: Bleeding esophageal varices Qualifiers: Esophageal varices type: secondary Qualified Code(s): I85.11 - Secondary esophageal varices with bleeding Cirrhosis of liver Qualifiers: Hepatic cirrhosis type: alcoholic cirrhosis Ascites presence: with ascites Qualified Code(s): K70.31 - Alcoholic cirrhosis of liver with ascites Condition: Stable Referrals: Karyn Henson MD [Primary Care Provider, Family Practice] Print Language: Polish Coding Level of Care Code ED Grab Setter for Chg Fwd Documented by User: Bk Epstein, 11/07/24 02:33 HPI - Nausea/Vomiting/Diarrhea General: Chief complaint: Nausea/Vomiting/Diarrhea Stated complaint: Vomiting Blood Time Seen by Provider: 11/06/24 19:41 Related Data Home Medications ?Medication ?Instructions ?Recorded ?Confirmed acetaminophen 650 mg 1,300 mg PO Q12H 04/22/21 10/11/24 tablet,extended release (Tylenol Arthritis Pain) cholecalciferol (vitamin D3) 50 50 mcg PO DAILY 04/22/21 10/11/24 mcg (2,000 unit) capsule diphenhydramine HCl 25 mg capsule 25 mg PO TID PRN allergies 04/22/21 10/11/24 (Allergy (diphenhydramine)) finasteride 5 mg tablet 5 mg PO DAILY 04/22/21 10/11/24 lisinopril 20 1 tab PO DAILY 04/22/21 10/11/24 mg-hydrochlorothiazide 25 mg tablet milk thistle 150 mg capsule 150 mg PO BID 04/22/21 10/11/24 omeprazole 20 mg tablet,delayed 20 mg PO DAILY 04/22/21 10/11/24 release tamsulosin 0.4 mg capsule 0.4 mg PO DAILY 04/22/21 10/11/24 sorbital laxative See Rx Instructions .Route .COMPLEX 11/05/22 10/11/24 cyclobenzaprine 10 mg tablet 10 mg PO ONCE 08/17/23 10/11/24 aspirin 81 mg tablet,delayed 81 mg PO DAILY 02/15/24 10/11/24 release (Max Low Dose Aspirin) vitamin B complex 1 cap PO DAILY 02/15/24 10/11/24 Previous Rx's ?Medication ?Instructions ?Recorded naproxen 500 mg tablet (Naprosyn) 500 mg PO BID PRN pain #20 tabs 02/25/21 blood-glucose sensor (Dexcom G7 #3 ea 06/30/24 Sensor device) blood-glucose,television repair teacher,cont #1 ea 06/30/24 (Dexcom G7 Clergy Member) insulin aspart U-100 100 unit/mL 2 unit (0.02 mL) SUBCUT .TIDAC 1 10/07/24 (3 mL) subcutaneous pen (Novolog month #15 mL FlexPen U-100 Insulin aspart) insulin glargine-yfgn 100 unit/mL See Rx Instructions .Route 10/11/24 (3 mL) subcutaneous pen .COMPLEX #15 mL semaglutide 1 mg/dose (4 mg/3 mL) 1 mg (0.75 mL) SUBCUT Q7D #3 mL 10/11/24 subcutaneous pen injector (Ozempic) pen needle, diabetic 32 gauge x #100 ea 10/24/24 Allergies Allergy/AdvReac Type Severity Reaction Status Date / Time tuberculin, purified protein Allergy Unknown Verified 07/11/24 15:27 deriva [facility]: Social History Smoking and tobacco/nicotine status: never used tobacco/nicotine Alcohol intake: never Substance/Drug Use: never Course Vital Signs: Vital signs: Vital Signs Temperature 98 F 11/06/24 19:40 Pulse Rate 114 H 11/07/24 02:10 Respiratory Rate 18 11/07/24 00:57 Blood Pressure 121/76 11/07/24 02:10 Pulse Oximetry 99 11/07/24 02:10 Oxygen Delivery Me thod Room Air 11/07/24 02:10 MDM - Nausea/Vomiting/Diarrhea Medical Decision Making Patient was originally seen by Mr. Celena PA-C. I agree with his history, evaluation, and treatment. Lab Data 11/06/24 20:44 11/06/24 20:44 Radiology Impressions Chest/Abdomen/Pelvis CT 11/06/24 20:49 IMPRESSION: 1. Thickening and irregularity of the distal esophagus and paraesophageal varices. This is likely secondary to cirrhosis of the liver however, underlying neoplasm is not excluded. 2. No acute cardiopulmonary findings. IMPRESSION: 1. Shrunken cirrhotic liver and marked splenomegaly. 2. Splenic hilum, paraesophageal varices and recannulization of the paraumbilical veins with caput medusa consistent with significant portal hypertension. Hematemesis likely related to prominent paraesophageal varices. 3. Enterocolitis, possibly related to hypoalbuminemia of chronic liver disease. 4. Mild ascites. 5. Multiple subcentimeter liver hypodensities, too small to characterize. In a low-risk patient, this is most likely to be benign and no further follow-up is recommended. In a high-risk patient, follow-up MRI in 3-6 months is recommended (or earlier if warranted by the patient's specific clinical circumstances). (Reference: Jessika) 6. Wall thickening of multiple bowel loops and the colon with pericolonic stranding consistent with enterocolitis. Hypoalbuminemia of chronic liver disease may be a contributing factor. 7. Bladder wall thickening suggesting cystitis, incomplete distention or chronic outflow obstruction. REFERENCES: Jessika CARTER, et al. Management of Incidental Liver Lesions on CT: A White Paper of the ACR Incidental Findings Committee. J Am Ben Radiol. 2017;14(11):1595-4636. ADDENDUM: 11/06/242346 Findings were discussed with SHAYY BYNUM at 11/06/2024 11:43 PM CDT. Laboratory Results WBC 11.36 10^3/uL (3.29-11.43) 11/06/24 20:44 RBC 4.13 10^6/uL (3.85-5.65) 11/06/24 20:44 Hgb 11.10 g/dL (11.27-16.99) L 11/06/24 20:44 Hct 34.8 % (37-53) L 11/06/24 20:44 MCV 84.3 fl (82-101) 11/06/24 20:44 MCH 26.9 pg (27-33) L 11/06/24 20:44 MCHC 31.9 g/dL (30-55) 11/06/24 20:44 RDW 16.1 % (12.1-15.1) H 11/06/24 20:44 Plt Count 108 10^3/cmm (157-399) L 11/06/24 20:44 MPV 12.2 fL (7.4-10.4) H 11/06/24 20:44 Neut % (Auto) 77.6 % 11/06/24 20:44 Lymph % (Auto) 14.5 % 11/06/24 20:44 Woodruff % (Auto) 6.3 % 11/06/24 20:44 Eos % (Auto) 0.7 % 11/06/24 20:44 Baso % (Auto) 0.4 % 11/06/24 20:44 Neut # (Auto) 8.80 10^3/uL (1.8-7.7) H 11/06/24 20:44 Lymph # (Auto) 1.7 10^3/uL (0.8-4.8) 11/06/24 20:44 Woodruff # (Auto) 0.7 10^3/uL (0.2-0.9) 11/06/24 20:44 Eos # (Auto) 0.1 10^3/uL (0.0-0.8) 11/06/24 20:44 Baso # (Auto) 0.1 10^3/uL (0.0-0.1) 11/06/24 20:44 Nucleated RBC % (auto) 0 % 11/06/24 20:44 Nucleated RBCs # 0.0 /100WBC 11/06/24 20:44 PT 15.00 SECONDS (12.1-14.9) H 11/06/24 20:44 INR 1.10 (0.8-1.2) 11/06/24 20:44 APTT 30.9 SECONDS (23.9-36.7) 11/06/24 20:44 Sodium 135 mmol/L (136-145) L 11/06/24 20:44 Potassium 3.9 mmol/L (3.5-5.1) 11/06/24 20:44 Chloride 100 mmol/L (98-107) 11/06/24 20:44 Carbon Dioxide 23 mmol/L (22-29) 11/06/24 20:44 Anion Gap 15.9 (5-19) 11/06/24 20:44 BUN 17 mg/dL (8-23) 11/06/24 20:44 Creatinine 0.7 mg/dL (0.7-1.2) 11/06/24 20:44 GFR Calculation 111.8 mL/min (90-130) 11/06/24 20:44 Glucose 162 mg/dL (65-115) H 11/06/24 20:44 Calculated Osmolality 285 mOsm/kg (285-295) 11/06/24 20:44 Calcium 8.8 mg/dL (8.5-10.5) 11/06/24 20:44 Total Bilirubin 1.3 mg/dL (0.15-1.2) H 11/06/24 20:44 AST 35 U/L (0-40) 11/06/24 20:44 ALT 27 U/L (0-41) 11/06/24 20:44 Alkaline Phosphatase 117 U/L (40-130) 11/06/24 20:44 Total Protein 6.2 g/dL (6.6-8.7) L 11/06/24 20:44 Albumin 3.8 g/dL (3.5-5.2) 11/06/24 20:44 Globulin 2.4 g/dL (1.3-4.6) 11/06/24 20:44 Lipase 24 U/L (13-60) 11/06/24 20:44 Urine Color Yellow (Yellow) 11/06/24 22: Urine Appearance Clear (CLEAR) 11/06/24 22: Urine pH 7.5 (5-7) 11/06/24 22:28 Ur Specific Freedom 1.061 (1.005-1.030) H 11/06/24 22:28 Urine Protein Negative (Negative) 11/06/24 22:28 Urine Glucose (UA) Negative (Normal) 11/06/24 22: Urine Ketones Trace (Negative) 11/06/24 22: Urine Blood Negative (Negative) 11/06/24: Urine Nitrate Negative (Negative) 11/06/24 22: Urine Bilirubin Negative (Negative) 11/06/24 22: Urine Urobilinogen 0.2 mg/dL (Negative) 11/06/24 22:28 Ur Leukocyte Esterase Negative (Negative) 11/06/24 22: Urine RBC 0-2 /hpf (0-2) 11/06/24 22: Urine WBC 0-5 /hpf (0-5) 11/06/24 22:28 Ur Squamous Epith Cells 0-5 /hpf (0-5) 11/06/24 22:28 Amorphous Sediment Not Reportable 11/06/24 22:28 Urine Bacteria None seen /hpf (NONE) 11/06/24 22:28 Hyaline Casts 0-4 /lpf H 11/06/24 22:28 Blood Type O Positive 11/06/24 21:05 Rho(D) Type Rh positive 11/06/24 21:05 Antibody Screen Negative 11/06/24 21:05 Discharge Plan Discharge Patient Disposition: Xfer Short-Term Hosp Clinical Impression: Bleeding esophageal varices Qualifiers: Esophageal varices type: secondary Qualified Code(s): I85.11 - Secondary esophageal varices with bleeding Cirrhosis of liver Qualifiers: Hepatic cirrhosis type: alcoholic cirrhosis Ascites presence: with ascites Qualified Code(s): K70.31 - Alcoholic cirrhosis of liver with ascites Condition: Stable Referrals: Karyn Henson MD [Primary Care Provider, Family Practice] Print Language: Polish Coding Level of Care Code ED Grab Setter for Lokesh Meyer
[2024-11-06 22:30] VITALS: BP 148/78; PULSE 116; O2SAT 100
[2024-11-06 22:50] LABS: Glucose Urine UA Negative (Normal); Nitrate Urine Negative (Negative)
[2024-11-06] MEDS: HYDROmorphone 0.5 MG/0.5 ML INJ IVP (22:50)
[2024-11-06 22:53] LABS: Add Urine Microscopic? YES
[2024-11-06 23:21] LABS: Specific Gravity, Urine 1.061 (1.005-1.030)
[2024-11-06 23:41] VITALS: BP 99/84; PULSE 115; RESP 18; O2SAT 98
[2024-11-07] VITALS (9 sets, daily range): BP systolic 114–143; BP diastolic 76–85; PULSE 111–133; RESP 17–18; O2SAT 97–100
[2024-11-07] MEDS: cefTRIAXone 1,000 mg SDV 1000 MG IVP (00:02)
[2024-11-07] MEDS: octreotide 500 MCG in sodium chloride 0.9% (100 ml) 100 ML 10.1 MCG IV (00:44)
[2024-11-07] MEDS: morphine 4 mg/mL SDV 1 mL IVP (03:35)
== END 2024-11-07 03:48 | disposition short-term general hospital (02) ==
PROVIDERS: Emergency Medicine; Emergency Provider Physician Assistant; PCP Family Medicine
DX: K70.31 Alcoholic cirrhosis of liver with ascites (principal); I85.11 Secondary esophageal varices with bleeding
CPT/HCPCS: 36415; 71260; 74177; 80053; 81001; 83690; 85025; 85610; 85730; 86850; 86900; 96374; 96375; 96376; 99285; J0696; J1171; J2270; J2354; J2405; J2470; J2765; J7030

== ENCOUNTER 2024-11-25 13:27 | Emergency (ER) | payer OTHER, SELFPAY ==
--- OUTSIDE RECORDS SUMMARY | 2024-03-24 04:30 | XMS_ITS ---
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 Encounters Encounter Location Date Provider Diagnosis [facility] [address] [facility] [address] [place] [address] 03/24/2024 Marianna Maurer Plan Of Treatment Next Appt Details Provider Name:Samantha hatch, 12/16/2024 11:30:00 AM, [address], [place], [address], Provider Name:Marianna Gibbs, 01/16/2025 10:20:00 AM, [address], [facility] [address], [place], [address], Provider Name:Samantha hatch, 05/17/2025 09:00:00 AM, [address], [place], [address], Progress Notes * Renny RODGERS LDOB:1955 (69 yo M)Acc No.[id number]:03/24/2024 Progress Notes Patient: Renny [place] Provider: GREG Huitron :1955 A ge:69 Y S ex:Male Date:03/24/2024 Address:[address] [place], [place] [phone] Pcp:Demarcus Helton, DO Subjective: * Chief Complaints: * N p referral for urinary retention * Electronic signature of GREG Sheehan on 11/25/2024 at 01:32 PM CDT Sign off status: Pending * Provider: GREG Huitron Date: 0 03/24/2024 Generated for Shira cartwright/Corazon/Briannesmitting on: 1 01:32 PM CDT
--- OUTSIDE RECORDS SUMMARY | 2024-11-25 13:33 | XMS_ITS | Encounter Summary ---
Author Organization [facility] Address [address] [place] [address] Care Team Providers Care Grain Combiner Name Role Phone Unavailable Primary Care Provider Unavailabl e Encounter Details Date Type Department Care Team (Late st Contact Info) Description 11/15/2024 Orders Only [facility] [address] [place] [address] Provider, Abstract NO ADDRESS ON FILE Social History Tobacco Use Types Packs/Day Years Used Date Smoking Tobacco: Unknown Food Insecurity Answer Date Recorded Do you find you are eating l ess than you should because you can t pay for food? No 11/09/2024 Transportation Needs Answer Date Record ed Have you gone without health care because you didn t have a way to get there? Or worry about transportation for future doctor visits, sisal picker medication, etc.? No 2024 Housing Stability Answer Date Recorded Do you worry you won t have a steady place to sleep or struggle to pay rent or mortgage? No 11/09/2024 Utility Needs Answer Date Recorded Do you have difficulty payin g for utility costs (electric, water or gas bills)? No 11/09/2024 Medication Needs Answer Date Recorded Have you skipped taking medi cation due to cost or worry you can t afford new medications? No 11/09/2024 Feeling Safe Answer Date Recorded Are you in a relationship wi th someone who hurts you emotionally and/or physically? No 11/09/2024 Food Insecurity Answer Date Recorded Patient needs follow up regardin 11/07/2024 Transportation Needs Answer Date Record ed Patient needs follow up regardin 11/07/2024 Utility Needs Answer Date Recorded Patient needs follow up regardin 11/07/2024 Sex and Gender Information Value Date Recorded Sex Assigned at Not on file Legal Sex Male 12:08 AM CDT Gender Identity Not on file Sexual Orientation Not on file documented as of this encounter Plan of Treatment Not on file documented as of this encounter Procedures Procedure Name Priority Date/Time Associated Diagnosis Comments COMPREHENSIVE METABOLIC PANEL Routine 11/06/2024 3:08 PM CDT documented in this encounter Results * COMPREHENSIVE METABOLIC PANEL (11/06/2024 3:08 PM CDT) Blood us Abstract Provider CHEMISTRY ORDERABLES Final Res ult documented in this encounter Visit Diagnoses Not on filedocumented in this encounter
--- OUTSIDE RECORDS SUMMARY | 2024-11-25 13:33 | XMS_ITS | Clinical Summary ---
Author Organization [facility] Address [address] [place] [address] Phone Care Team Providers Care Fence Installer Name Role Phone Unavailable Primary Care Provider Unavailabl e Allergies Active Allergy Reactions Criticality Noted Date Comments Sweet Potato Nausea and Vomiting Low 11/07/2024 Tuberculin, Old Skin Test Other (See Comments) 11/07/2024 False positive reaction on the test, patient was in the [place] [place] back then Medications pantoprazole (PROTONIX) 40 mg Tablet, Delayed Release (E.C.) Take 1 Tablet (40 mg) by mouth 2 times daily. 60 Tablet 3 11/11/2024 2:06 PM CDT 11/11/2024 Active Active Problems Problem Noted Date Diagnosed Date Bleeding per rectum 11/08/2024 Hypomagnesemia 11/08/2024 Acute blood loss anemia 11/08/2024 Low grade fever 11/08/2024 Cellulitis of right arm 11/08/2024 Anemia 11/08/2024 Gastric ulcer 11/08/2024 Hematemesis with nausea 11/07/2024 Melena 11/07/2024 Cirrhosis of liver with ascites 11/07/2024 Esophageal varices 11/07/2024 Benign hypertension 11/07/2024 Type 2 diabetes mellitus wit hout complication, with long-term current use of insulin 11/07/2024 History of esophageal varices 11/07/2024 Encounters Date Type Department Care Team Description 5 Orders Only [facility] [address] [place] [address] Provider, Abstract 5 Abstract [facility] [address] [place] [address] Provider, Abstract 5 Results Follow-Up [facility] Gastroenterology - [place] [address] [place] [phone] Leena Burk, [facility] PATHOLOGY 5 2:35 PM CDT - 5 2:55 PM CDT Surgery [facility] Endoscopy [address] [place] [phone] Steve Crouch MD COLONOSCOPY 5 2:28 PM CDT Anesthesia Event [facility] Endoscopy [address] [place] [phone] Devin Hussein MD Johnsen, James, EARTH SCIENCES PROFESSOR 5 2:29 PM CDT Anesthesia Event [facility] Endoscopy [address] [place] [phone] James Michael III, MD Bandalan, Harold Richie, EARTH SCIENCES PROFESSOR 5 1:30 PM CDT - 5 1:50 PM CDT Surgery [facility] Endoscopy [address] [place] [phone] Steve Crouch MD ESOPHAGOGASTRODUODENOSCOPY 5 External Device Data STL ABSTRACTION Provider, Abstract 5 External Device Data STL ABSTRACTION Provider, Abstract 5 External Device Data STL ABSTRACTION Provider, Abstract 5 1:05 PM CDT Anesthesia Event [facility] Endoscopy [address] [place] [phone] Misael Nolen MD 5 10:22 AM CDT - 5 10:42 AM CDT Surgery [facility] Endoscopy [address] [place] [phone] Steve Crouch MD ESOPHAGOGASTRODUODENOSCOPY 5 5:42 AM CDT - 5 3:33 PM CDT Hospital Encounter [facility] 3B Surgical [address] [place] [address] Raulito Francis MD Raavi, MD Ashley Olea Talha, MD [place], Cuong Enriquez MD Hematemesis with nausea Discharge Disposition: Home or Self Care 5 Travel from Last 3 Months Social History Tobacco Use Types Packs/Day Years Used Date Smoking Tobacco: Unknown Tobacco Cessation:Counseling Given: Not Answered Food Insecurity Answer Date Recorded Do you find you are eating l ess than you should because you can t pay for food? No 11/09/2024 Transportation Needs Answer Date Record ed Have you gone without health care because you didn t have a way to get there? Or worry about transportation for future doctor visits, parts picker medication, etc.? No 2024 Housing Stability [...] on file Sexual Orientation Not on file Last Filed Vital Signs Vital Sign Reading Time Taken Comments Blood Pressure 132/87 11/11/2024 7:37 AM CDT Pulse 89 11/11/2024 7:37 AM CDT Temperature 36.7 C (98.1 F) 11/11/2024 7:37 AM CDT Respiratory Rate 18 11/11/2024 7:37 AM CDT Oxygen Saturation 99% 11/11/2024 7:37 AM CDT Inhaled Oxygen Concentration - - Weight 102.4 kg (225 lb 12 oz) 11/08/2024 3:50 A M CDT Height 180.3 cm (5' 11 ) 11/07/2024 6:03 AM CDT Body Mass Index 31.49 11/07/2024 6:03 AM CDT Plan of Treatment Health Maintenance Due Date Last Done Comments DIABETES ANNUAL FOOT EXAM 1973 DIABETES MICROALBUMIN ANNUAL SCREEN 1973 LDL CHOLESTEROL ANNUAL 1973 FIT-DNA Q 3 years 02/09/2000 FIT/FOBT Q 1 year 02/09/2000 Flex Sig/CT Colonography Q 5 years 02/09/2000 DIABETES ANNUAL RETINAL EXAM 09/22/2007 09/21/2006 RSV VACCINE (60+ or ) (1 - Risk 60-74 years 1-dose series) 2015 INFLUENZA VACCINE (#1) 2024 , 12/03/2018, 11/09/2018, Additional history exists DIABETES HBA1C Q 6 MONTHS 05/07/2025 11/07/2024 DTAP/TDAP/TD VACCINES (3 - T d or Tdap) 09/22/2032 09/22/2022, 02/11/2013, 02/09/1999 COLORECTAL SCREENING 11/09/2034 11/09/2024, 11/10/19 25 Colorectal Cancer Screening 11/09/2034 ZOSTER VACCINE Completed 12/12/2020, 08/14/2020 PNEUMOCOCCAL VACCINE 50+ YEARS Completed 0 03/27/2022, 08/14/2020, 11/09/2017, Additional history exists Medical Devices Implanted Type Area [employer] 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 Clip N/A: Stomach [employer] [id number] 07/27/2027 [id number] / / [id number] Procedures Procedure Name Priority Date/Time Associated Diagnosis Comments TELEMETRY REPORT 11/14/2024 3:17 AM CDT POC GLUCOSE Routine 11/11/2024 12:13 PM CDT POC GLUCOSE Routine 11/11/2024 7:31 AM CDT POC GLUCOSE Routine 11/10/2024 5:53 PM CDT HEMOGLOBIN AND HEMATOCRIT Routine 2024 4:17 PM CDT POC GLUCOSE Routine 11/10/2024 12:22 PM CDT POC GLUCOSE Routine 11/10/2024 7:22 AM CDT CBC WITH DIFFERENTIAL Routine 11/10/2024 6:05 AM CDT BASIC METABOLIC PANEL Routine 11/10/2024 6:05 AM CDT POC GLUCOSE Routine 11/09/2024 8:23 PM CDT POC GLUCOSE Routine 11/09/2024 5:31 PM CDT COLONOSCOPY REPORT 11/09/2024 2:44 PM CDT COLONOSCOPY 11/09/2024 2:35 PM CDT Case Notes 11/09 0715 patient finished prep, unsure of appearance though. nurse to message with next BM appearance - KT 0810- patient not clear, more prep ordered STAT - KT POC GLUCOSE Routine 11/09/2024 11:40 AM CDT POC GLUCOSE Routine 11/09/2024 7:28 AM CDT CBC WITH DIFFERENTIAL Routine 11/09/2024 5:47 AM CDT BASIC METABOLIC PANEL Routine 11/09/2024 5:47 AM CDT POC GLUCOSE Routine 11/08/2024 9:06 PM CDT HEMOGLOBIN AND HEMATOCRIT Timed Study 2024 8:21 PM CDT POC GLUCOSE Routine 11/08/2024 4:28 PM CDT UPPER ENDOSCOPY REPORT 2:50 PM CDT ESOPHAGOGASTRODUODENOSCOPY 11/08 1:30 PM CDT TRANSFUSE PACKED RED BLOOD CELLS Routine 11/08/2024 1:22 PM CDT PREPARE RED BLOOD CELLS Routine 11/09/19 11:50 AM CDT HEMOGLOBIN AND HEMATOCRIT Stat 2024 11:14 AM CDT POC GLUCOSE Routine 11/08/2024 8:14 AM CDT US ABDOMEN LIMITED Routine 11/08/2024 8:01 AM CDT COMPREHENSIVE METABOLIC PANEL Routine 2:02 AM CDT PROTIME-INR Routine 11/08/2024 2:02 AM CDT CBC WITHOUT DIFFERENTIAL Routine 2:02 AM CDT HEMOGLOBIN AND HEMATOCRIT Routine 2024 11:02 PM CDT POC GLUCOSE Routine 11/07/2024 9:29 PM CDT POC GLUCOSE Routine 11/07/2024 4:28 PM CDT HEMOGLOBIN AND HEMATOCRIT Routine 2024 3:37 PM CDT POC GLUCOSE Routine 11/07/2024 2:33 PM CDT UPPER ENDOSCOPY REPORT 1:17 PM CDT PATHOLOGY Pathology 11/07/2024 1:11 PM CDT ESOPHAGOGASTRODUODENOSCOPY 11/07 10:22 AM CDT ALPHA FETOPROTEIN TUMOR MARKER Routine 0 11/07/2024 10:22 AM CDT VERIFICATION BLOOD GROUP Stat 025 9:17 AM CDT Laboratory test EXTRA TUBE (URINE ROJAS) Routine 11/08/19 25 8:30 AM CDT URINALYSIS W/REFLEX MICROSCOPIC Routine 11/07/2024 8:30 AM CDT TYPE AND SCREEN Routine 11/07/2024 8:00 AM CDT HEMOGLOBIN A1C Routine 11/07/2024 8:00 AM CDT PTT Routine 11/07/2024 8:00 AM CDT COMPREHENSIVE METABOLIC PANEL Routine 8:00 AM CDT PROTIME-INR Routine 11/07/2024 8:00 AM CDT CBC WITH DIFFERENTIAL Routine 11/07/2024 8:00 AM CDT MAGNESIUM LEVEL Routine 11/07/2024 8:00 AM CDT EKG 12-LEAD Routine 11/07/2024 7:41 AM CDT POC GLUCOSE Routine 11/07/2024 7:23 AM CDT COMPREHENSIVE METABOLIC PANEL Routine 3:08 PM CDT PROTIME-INR Routine 11/06/2024 from Last 3 Months Results * TELEMETRY REPORT (11/14/2024 3:17 AM CDT) us Provider Scanning ECG ORDERABLES Final Result * (ABNORMAL) POC GLUCOSE (11/11/2024 12:13 PM CDT) Only the most recent of16 resultswithin the time period is included. GLUCOSE POC 112(H) 74 - 99 mg/dL 11/11/2024 12:13 PM CDT [facility] SPECIMEN SOURCE, GLUCOSE POC Capillary 11/11/2024 12:13 PM CDT [facility] Blood, whole 11/11/2024 12:1 3 PM CDT 11/11/2024 12:30 PM CDT Cuong Longo MD POINT OF CARE TESTING Fin al Result [facility] CLIA # [id number] [facility] [phone] * (ABNORMAL) HEMOGLOBIN AND HEMATOCRIT (11/10/2024 4:17 PM CDT) Only the most recent of5 resultswithin the time period is included. HEMOGLOBIN 7.8(L) 14.0 - 18.0 g/dL 11/10/2024 5:06 PM CDT [facility] HEMATOCRIT 23.9(L) 41.0 - 53.0 % 11/10/2024 5:06 PM CDT [facility] Blood Venipuncture / Unknown 11/10/2024 4:17 PM CDT 11/10/2024 4:54 PM CDT Cuong Longo MD HEMATOLOGY ORDERABLES Fin al Result [facility] CLIA # [id number] [address] [phone] * (ABNORMAL) CBC WITH DIFFERENTIAL (11/10/2024 6:05 AM CDT) Only the most recent of3 resultswithin the time period is included. WBC 3.3(L) 4.8 - 10.8 K/uL 11/10/2024 7:[address] [facility] RBC 2.65(L) 4.60 - 6.20 M/uL 11/10/2024 7:[address] [facility] HEMOGLOBIN 7.3(L) 14.0 - 18.0 g/dL 11/10/2024 7:[address] [facility] HEMATOCRIT 22.6(L) 41.0 - 53.0 % 11/10/2024 7:[address] [facility] MCV 85.3 84.0 - 103.0 fL 11/10/2024 7:[address] [facility] MCH 27.5 27.0 - 34.0 pg 11/10/2024 7:[address] [facility] MCHC 32.3 30.0 - 35.0 g/dL 11/10/2024 7:[address] [facility] PLATELETS 59(L) 140 - 440 K/uL 11/10/2024 7:[address] [facility] MPV 11.6 8.9 - 12.8 fL 11/10/2024 7:[address] [facility] RDW 16.6(H) 11.0 - 14.5 % 11/10/2024 7:[address] [facility] RDW-STDEV 50.9 37.0 - 54.0 fL 11/10/2024 7:17 AM [facility] NEUTROPHILS 59 42 - 75 % 11/10/2024 7:[address] [facility] LYMPHOCYTES 25 24 - 44 % 11/10/2024 7:[address] [facility] MONOCYTES 11(H) 2 - 10 % 11/10/2024 7:17 AM [facility] EOSINOPHILS 4 0 - 7 % 11/10/2024 7:[address] [facility] BASOPHILS 1 0 - 1 % 11/10/2024 7:17 AM CDT [facility] IMMATURE GRANULOCYTES 1 0 - 2 % 11/10/2024 7:17 AM CDT [facility] NEUTROPHIL ABSOLUTE 1.94(L) 2.00 - 8.00 K/uL 11/10/2024 7:17 AM CDT [facility] LYMPHOCYTE ABSOLUTE 0.82(L) 1.20 - 4.00 K/uL 11/10/2024 7:17 AM CDT [facility] MONOCYTE ABSOLUTE 0.38 0.10 - 0.60 K/uL 11/10/2024 7:17 AM CDT [facility] EOSINOPHIL ABSOLUTE 0.13 0.00 - 0.70 K/uL 11/10/2024 7:17 AM CDT [facility] BASOPHILS ABSOLUTE 0.02 0.00 - 0.20 K/uL 11/10/2024 7:17 AM CDT [facility] IMMATURE GRANULOCYTES ABSOLUTE 0.03 0.00 - 0.10 K/uL 11/10/2024 7:[address] [facility] SMEAR REVIEWED: NA - Not Applicable 11/10/2024 7:[address] [facility] Blood Venipuncture / Unknown 11/10/2024 6:05 AM CDT 11/10/2024 7:07 AM CDT us Kali Ramirez MD HEMATOLOGY ORDERABLES Final Res ult [facility] CLIA # [id number] [address] [place] [id number] * (ABNORMAL) BASIC METABOLIC PANEL (11/10/2024 6:05 AM CDT) Only the most recent of2 resultswithin the time period is included. SODIUM 137 136 - 145 mmol/L 11/10/2024 7:52 AM T [facility] POTASSIUM 3.6 3.5 - 5.1 mmol/L 11/10/2024 7:52 AM CDT [facility] CHLORIDE 107 98 - 107 mmol/L 11/10/2024 7:52 AM CDT [facility] CO2 22 22 - 29 mmol/L 11/10/2024 7:52 AM CDT [facility] CALCIUM 7.3(L) 8.8 - 10.2 mg/dL 11/10/2024 7:52 AM CDT [facility] BUN 15 8 - 23 mg/dL 11/10/2024 7:52 AM CDT [facility] CREATININE 0.74 0.67 - 1.17 mg/dL 11/10/2024 7:52 AM CDT [facility] GLUCOSE 106(H) 74 - 99 mg/dL 11/10/2024 7:52 AM CDT [facility] GFR >60 >=60 mL/min/1.7 3 sq meter 11/10/2024 7:52 AM CDT [facility] Comment:eGFR calculated with 2020 CKD-EPI equation. Vegetarian diet, extremely high or low muscle mass, and may affect results. Cystatin C with Glomerular Filtration Rate is a suitable alternative for these patients. ANION GAP 8(L) 9 - 20 mmol/L 11/10/2024 7:52 AM CDT [facility] Blood Venipuncture / Unknown 11/10/2024 6:05 AM CDT 11/10/2024 7:07 AM CDT Kali Ramirez MD CHEMISTRY ORDERABLES Final Resu lt [facility] CLIA # [id number] [address] [address] [place] [address] * COLONOSCOPY REPORT (11/09/2024 2:44 PM CDT) Narrative Procedure Note Steve Crouch MD - 11/09/2024 2:44 PM CDT [facility] GI Patient Name: Renny Rodgers Procedure Date: 11/09/2024 Date of : 1955 Admit Type: Inpatient Age: 69 Attending MD: Steve Crouch , , Procedure: Colonoscopy Indications: Rectal bleeding Providers: Steve Crouch Referring MD: Medicines: Monitored Anesthesia Care Complications: No immediate complications. Procedure: After I obtained informed consent, the scope was passed under direct vision. Throughout the procedure, the patient's blood pressure, pulse, and oxygen saturations were monitored continuously. The Colonoscope was introduced through the anus and advanced to the terminal ileum, with identification of the appendiceal orifice and IC valve. The colonoscopy was performed without difficulty. The patient tolerated the procedure well. The quality of the bowel preparation was evaluated using the BBPS ([place] Bowel Preparation Scale) with scores of: Right Colon = 3, Transverse Colon = 3 and Left Colon = 3 (entire mucosa seen well with no residual staining, small fragments of stool or opaque liquid). The total BBPS score equals 9. Estimated Blood Loss: Estimated blood loss was minimal. Findings: The terminal ileum appeared normal. A few small-mouthed diverticula were found in the sigmoid colon. Internal hemorrhoids were found during retroflexion. The hemorrhoids were large. Portal colopathy with contact bleeding.. The exam was otherwise without abnormality on direct and retroflexion views. Impression: - The examined portion of the ileum was normal. - Diverticulosis in the sigmoid colon. - Internal hemorrhoids. - Portal colopathy with contact bleeding. - The examination was otherwise normal on direct and retroflexion views. - No specimens collected. Recommendation: Ok for diet and discharge from a GI point of view Steve Crouch, 11/09/2024 2:44:16 PM Number of Addenda: 0 Note Initiated On: 11/09/2024 1:56 PM Scope Withdrawal Time 0 hours 4 minutes 22 seconds Scope In: 2:33:23 PM Scope Out: 2:42:20 PM [address] [place], [place] Steve Crouch MD GI PROCEDURE ORDERABLES Final Result * TRANSFUSE RED BLOOD CELLS (11/08/2024 3:39 PM CDT) Kali Ramirez MD BLOOD TRANSFUSION ORDERABLES Fi nal Result * UPPER ENDOSCOPY REPORT (11/08/2024 2:50 PM CDT) Narrative Procedure Note Steve Crouch MD - 11/08/2024 2:50 PM CDT [facility] GI Patient Name: Renny Rodgers Procedure Date: 11/08/2024 Date of : 1955 Admit Type: Inpatient Age: 69 Attending MD: Steev Crouch , , Procedure: Upper GI endoscopy Indications: Suspected upper gastrointestinal bleeding Providers: Steve Crouch Referring MD: Medicines: Monitored Anesthesia Care Complications: No immediate complications. Procedure: After obtaining informed consent, the endoscope was passed under direct vision. Throughout the procedure, the patient's blood pressure, pulse, and oxygen saturations were monitored continuously. The Endoscope was introduced through the mouth, and advanced to the second part of duodenum. The upper GI endoscopy was accomplished without difficulty. The patient tolerated the procedure well. Estimated Blood Loss: Estimated blood loss was minimal. Findings: LA Grade A (one or more mucosal breaks less than 5 mm, not extending between tops of 2 mucosal folds) esophagitis with no bleeding was found in the distal esophagus. Grade I varices were found in the distal esophagus. Scarring and no bleeding stigmata. One contact bleeding superficial gastric ulcer with a flat pigmented spot (Rubio Class IIc) was found in the gastric antrum. The lesion was 5 mm in largest dimension. For hemostasis, one hemostatic clip was successfully placed (MR conditional). Clip food general manager: [place] 6APT. There was no bleeding at the end of the procedure. The examined duodenum was normal. Impression: - LA Grade A esophagitis with no bleeding. - Grade I esophageal varices. - Contact bleeding gastric ulcer with a flat pigmented spot (Rubio Class IIc). Clip (MR conditional) was placed. Clip food general manager: [place] [employer]. - Normal examined duodenum. - No specimens collected. Recommendation: PPI Colonoscopy tomorrow, as I am not totally convinced he re-bled from the ulcer seen. Steve Crouch, 11/08/2024 2:50:45 PM Number of Addenda: 0 Note Initiated On: 11/08/2024 2:25 PM Scope Withdrawal Time Scope In: Scope Out: [address] [place], [place] Steve Crouch MD GI PROCEDURE ORDERABLES Final Result * PREPARE RED BLOOD CELLS (11/08/2024 11:50 AM CDT) COMPONENT TYPE [id number] [facility] COMPONENT IDENTIFICATION [id number] [facility] UNIT ABO O [facility] RH NEG [facility] CROSSMATCH Compatible [facility] COMPONENT STATUS Transfused ME [facility] [place] COMPONENT EXPIRATION DATE/TIME [id number] [facility] COMPONENT CODING SYSTEM 9500 [facility] VOLUME, BLOOD PRODUCT 350 [facility] Other, specify 11/08/2024 11 :50 AM CDT Kali Ramirez MD LAB TRANSFUSION ORDERABLES Edit ed Result - Final [facility] CLIA#[id number] [address] [place] [address], [place] [phone] * US ABDOMEN LIMITED (11/08/2024 8:01 AM CDT) Anatomical Region Laterality Modality Abdomen Ultrasound 11/08/2024 8:01 AM CDT Narrative 11/08/2024 10:33 AM CDT Exam: US ABDOMEN LIMITED Date/Time of Exam: 11/08/2024 8:01 AM Reason For Exam: Ascites. Diagnosis: Laboratory test. Findings: Multiplanar grayscale imaging was performed of the abdomen prior to possible paracentesis. No ascites visualized. No procedure performed. Procedure Note Gregory Fonseca MD - 11/08/2024 Exam: US ABDOMEN LIMITED Date/Time of Exam: 11/08/2024 8:01 AM Reason For Exam: Ascites. Diagnosis: Laboratory test. Findings: Multiplanar grayscale imaging was performed of the abdomen prior to possible paracentesis. No ascites visualized. No procedure performed. Sarahi GOMEZ US ORDERABLES Final Resu lt * (ABNORMAL) PROTIME-INR (11/08/2024 2:02 AM CDT) Only the most recent of3 resultswithin the time period is included. PROTIME 17.0(H) 12.7 - 14.9 Seconds 11/08/2024 2:42 AM CDT [facility] INR 1.3(H) 0.8 - 1.2 11/08/2024 2:42 AM CDT [facility] Blood Venipuncture / Unknown 11/08/2024 2:02 AM CDT 11/08/2024 2:19 AM CDT Narrative [facility] - 11/08/2024 2:42 AM CDT Expected Values for INR: DVT/PE Goal INR 2.5; range 2.0 - 3.0 Valve Replacement Tissue Goal INR 2.5; range 2.0 - 3.0 Valve Replacement Mechanical Goal INR 3.0; range 2.5 - 3.5 POST-CT Goal INR 2.5; range 2.0 - 3.0 or Goal INR 3.0; range 2.5 - 3.5 Atrial Fibrillation Goal INR 2.5; range 2.0 - 3.0 Ischemic Stroke Goal INR 2.5; range 2.0 - 3.0 Lefty Barnett MD HEMATOLOGY ORDERABLES Final Res ult [facility] CLIA # [id number] [address] [place] [address] * (ABNORMAL) CBC WITHOUT DIFFERENTIAL (11/08/2024 2:02 AM CDT) WBC 7.6 4.8 - 10.8 K/uL 11/08/2024 2:44 AM CDT [facility] RBC 2.66(L) 4.60 - 6.20 M/uL 11/08/2024 2:44 AM CDT [facility] HEMOGLOBIN 7.3(L) 14.0 - 18.0 g/dL 11/08/2024 2:44 AM CDT [facility] HEMATOCRIT 22.4(L) 41.0 - 53.0 % 11/08/2024 2:44 AM CDT [facility] MCV 84.2 84.0 - 103.0 fL 11/08/2024 2:44 AM CDT [facility] MCH 27.4 27.0 - 34.0 pg 11/08/2024 2:44 AM CDT [facility] MCHC 32.6 30.0 - 35.0 g/dL 11/08/2024 2:44 AM CDT [facility] PLATELETS 64(L) 140 - 440 K/uL 11/08/2024 2:44 AM CDT [facility] MPV 11.2 8.9 - 12.8 fL 11/08/2024 2:44 AM CDT [facility] RDW 16.4(H) 11.0 - 14.5 % 11/08/2024 2:44 AM T [facility] RDW-STDEV 50.3 37.0 - 54.0 fL 11/08/2024 2:[address] [facility] Blood Venipuncture / Unknown 11/08/2024 2:02 AM CDT 11/08/2024 2:19 AM CDT us Lefty Barnett MD HEMATOLOGY ORDERABLES Final Res ult [facility] CLIA # [id number] [address] [address] [place] [address] * (ABNORMAL) COMPREHENSIVE METABOLIC PANEL (11/08/2024 2:02 AM CDT) Only the most recent of3 resultswithin the time period is included. [facility] SODIUM 138 136 - 145 mmol/L 11/08/2024 2:[address] [facility] POTASSIUM 3.9 3.5 - 5.1 mmol/L 11/08/2024 2:[address] [facility] CHLORIDE 106 98 - 107 mmol/L 11/08/2024 2:[address] [facility] CO2 22 22 - 29 mmol/L 11/08/2024 2:[address] [facility] CALCIUM 7.8(L) 8.8 - 10.2 mg/dL 11/08/2024 2:[address] [facility] BUN 22 8 - 23 mg/dL 11/08/2024 2:[address] [facility] CREATININE 0.82 0.67 - 1.17 mg/dL 11/08/2024 2:[address] [facility] GLUCOSE 159(H) 74 - 99 mg/dL 11/08/2024 2:[address] [facility] TOTAL PROTEIN 4.6(L) 6.4 - 8.3 g/dL 11/08/2024 2:[address] [facility] ALBUMIN 3.0(L) 3.5 - 5.2 g/dL 11/08/2024 2:[address] [facility] BILIRUBIN TOTAL 1.2(H) 0.0 - 1.0 mg/dL 11/08/2024 2:[address] [facility] ALKALINE PHOSPHATASE 74 40 - 129 U/L 11/08/2024 2:[address] [facility] AST 29 10 - 50 U/L 11/08/2024 2:[address] [facility] ALT 20 <=50 U/L 11/08/2024 2:[address] [facility] GFR >60 >=60 mL/min/1.7 3 sq meter 11/08/2024 2:[address] [facility] Comment:eGFR calculated with 2021 CKD-EPI equation. Vegetarian diet, extremely high or low muscle mass, and may affect results. Cystatin C with Glomerular Filtration Rate is a suitable alternative for these patients. ANION GAP 10 9 - 20 mmol/L 11/08/2024 2:52 AM CDT [facility] Blood Venipuncture / Unknown 11/08/2024 2:02 AM CDT 11/08/2024 2:20 AM CDT us Lefty Barnett MD CHEMISTRY ORDERABLES Final Resu lt [facility] CLIA # [id number] [address] [place] [address] * UPPER ENDOSCOPY REPORT (11/07/2024 1:17 PM CDT) Narrative Procedure Note Steve Crouch MD - 11/07/2024 1:17 PM CDT [facility] GI Patient Name: Renny Rodgers Procedure Date: 11/07/2024 Date of : 1955 Admit Type: Inpatient Age: 69 Attending MD: Steve Crouch , , Procedure: Upper GI endoscopy Indications: Hematemesis Providers: Steve Crouch Referring MD: Medicines: Monitored Anesthesia Care Complications: No immediate complications. Procedure: After obtaining informed consent, the endoscope was passed under direct vision. Throughout the procedure, the patient's blood pressure, pulse, and oxygen saturations were monitored continuously. The Endoscope was introduced through the mouth, and advanced to the second part of duodenum. The upper GI endoscopy was accomplished without difficulty. The patient tolerated the procedure well. Estimated Blood Loss: Estimated blood loss was minimal. Findings: Grade I varices were found in the lower third of the esophagus with no stigmata of bleeding and scarring from prior treatment. The exam of the esophagus was otherwise normal. One non-bleeding gastric ulcer with a flat pigmented spot (Rubio Class IIc) was found in the gastric antrum. The lesion was 6 mm in largest dimension. Biopsies were taken with a cold forceps for histology. Diffuse mild inflammation characterized by erythema was found in the gastric body. Biopsies were taken with a cold forceps for histology. The exam of the stomach was otherwise normal. The examined duodenum was normal. Impression: - Grade I esophageal varices. - Non-bleeding gastric ulcer with a flat pigmented spot (Rubio Class IIc). Biopsied. - Gastritis, characterized by erythema. Biopsied. - Normal examined duodenum. Recommendation: CLD, ADAT Stop octreotide Continue PPI Further mgmt per cs note Steve Crouch, 11/07/2024 1:17:13 PM Number of Addenda: 0 Note Initiated On: 11/07/2024 12:59 PM Scope Withdrawal Time Scope In: Scope Out: [address] [place], [place] Steve Crouch MD GI PROCEDURE ORDERABLES Final Result * PATHOLOGY (11/07/2024 1:11 PM CDT) CASE REPORT Surgical Pathology Report Case: [id number] Authorizing Provider: Steve Crouch MD Collected: 11/07/2024 01:11 PM Ordering Location: [facility] Received: 11/08/2024 06:41 AM Endoscopy Pathologist: Bebe Reynolds MD Specimen: Stomach 7:26 AM CDT [facility] FINAL DIAGNOSIS A. Stomach, biopsies - Focally ulcerated gastric mucosa with mild active gastritis in a background of moderate chronic gastritis - No intestinal metaplasia, dysplasia, or malignancy - Immunohistochemistry for Helicobacter pylori is negative Bebe Reynolds MD [id number] 7:26 AM CDT [facility] at 0726 CDT GROSS DESCRIPTION A. Received in formalin labeled Vishal -stomach biopsies rule out H. pylori are three fragments of guerra-pink soft tissue, up to 0.3 cm in greatest dimension. The specimen is submitted entirely in A1. Grossed by: Letty Morales MS, PA (ASCP)CM 7:26 AM CDT [facility] MICROSCOPIC DESCRIPTION Immunohistochemistry for Helicobacter pylori was ordered on block A1 after review of H&E-stained slides based on the presence of ulceration and inflammation as well as clinician request. 5 7:26 AM CDT [facility] OPERATIVE PROCEDURE 1: ESOPHAGOGASTRODUODENOSCO PY 5 7:26 AM CDT [facility] CLINICAL INFORMATION R/o H Pylori 5 7:26 AM CDT [facility] COMMENT The Canpages voice-activated dictation system may have been used in the creation of this report. Inherent to this system is the possibility of errors in syntax, grammar, punctuation, or other areas that could impact interpretation. If there are interpretive questions about the report, please contact the performing pathologist. Unless gross only is specified in the diagnosis, the microscopic examination substantiates the above cited diagnosis. The performance characteristics of all immunohistochemical stains cited in this report (if any) were determined by the Diagnostic Immunohistochemistry Laboratory of [facility] in compliance with CLIA'88 regulations. Some of these tests rely on the use of analyte specific reagents and are subject to specific labeling requirements by the FDA. All controls show appropriate reactivity. This testing was developed by the Diagnostic Immunohistochemistry Laboratory of [facility]. It has not been cleared or approved by the FDA. The FDA has determined that such clearance or approval is not necessary. 7:26 AM CDT [facility] Tissue ENTIRE STOMACH / Unknown Collection / Unknown 11/07/2024 1:11 PM CDT 11/08/2024 6:41 AM CDT Comment:R/o H Pylori us Steve Crouch MD PATHOLOGY/CYTOLOGY ORDBarron SAWANT Final Result [facility] CLIA # [id number] [address] [place] [address] [place] [address] * ALPHA FETOPROTEIN TUMOR MARKER (11/07/2024 10:22 AM CDT) ALPHA FETOPROTEIN TUMOR MARKER 4.6 <6.1 ng/mL 11/09/2024 2:07 PM CDT [facility] Comment: This test was performed using the Frances King chemiluminescent method. Values obtained from different assay methods cannot be used interchangeably. AFP levels, regardless of value, should not be interpreted as absolute evidence of the presence or absence of disease. Blood Venipuncture / Unknown 11/07/2024 10:22 AM CDT 11/07/2024 10:41 AM CDT Narrative [facility] - 11/09/2024 2:07 PM CDT Performing Organization Information: Site ID: [id number] Address: [address] [place] [id number] Director: Partha Garibay Sarahi GOMEZ CHEMISTRY ORDERABLES Final Result Performing Organization Address City/[facility]/ZIP Co de Phone Number [facility] * VERIFICATION BLOOD GROUP (11/07/2024 9:17 AM CDT) ABO GROUP O 11/07/2024 9:58 AM CDT [facility] RH (D) TYPE Positive 11/07/2024 9:58 AM CDT [facility] Blood Venipuncture / Unknown 11/07/2024 9:17 AM CDT 11/07/2024 9:37 AM CDT us Lefty Barnett MD BLOOD BANK ORDERABLES Final Res ult [facility] CLIA#[id number] [address] [place] [address], * EXTRA TUBE (URINE ROJAS) (11/07/2024 8:30 AM CDT) Urine URINE SPECIMEN OBTAINED BY CLEAN CATCH PROCEDURE / Unknown 11/07/2024 8:30 AM CDT 11/07/2024 8:30 AM CDT us Lefty Barnett MD URINE ORDERABLES Final Result Performing Organization Address City/[facility]/ZIP Co de Phone Number [facility] CLIA # [id number] [address] [place] [address] [place] [address] * (ABNORMAL) URINALYSIS WITH REFLEX MICROSCOPIC (11/07/2024 8:30 AM CDT) COLOR UA Yellow Pale to Dark Yellow 11/07/2024 8:37 AM CDT [facility] CLARITY UA Clear Clear 11/07/2024 8:37 AM CDT [facility] SPECIFIC GRAVITY UA 1.020 1.003 - 1.035 11/07/2024 8:37 AM CDT [facility] PH UA 6.0 5.0 - 8.0 11/07/2024 8:37 AM CDT [facility] LEUKOCYTE ESTERASE UA Negative Negative 11/07/2024 8:37 AM CDT [facility] NITRITE UA Negative Negative 11/07/2024 8:37 AM CDT [facility] PROTEIN UA Trace(A) Negative 11/07/2024 8:37 AM T [facility] GLUCOSE UA Negative Negative 11/07/2024 8:37 AM T [facility] KETONES UA 2+(A) Negative 11/07/2024 8:37 AM T [facility] UROBILINOGEN UA 0.2 <2.0 mg/dL 8:37 AM CDT [facility] BILIRUBIN UA Negative Negative 11/07/2024 8:37 AM T [facility] BLOOD UA Negative Negative 11/07/2024 8:37 AM T [facility] Urine URINE SPECIMEN OBTAINED BY CLEAN CATCH PROCEDURE / Unknown 11/07/2024 8:30 AM CDT 11/07/2024 8:30 AM CDT us Lefty Barnett MD URINE ORDERABLES Final Result [facility] CLIA # [id number] [address] [place] [address] * PTT (11/07/2024 8:00 AM CDT) PTT 31.7 24.8 - 37.2 seconds 11/07/2024 8:29 AM CDT [facility] Blood Venipuncture / Unknown 11/07/2024 8:00 AM CDT 11/07/2024 8:17 AM CDT Narrative [facility] - 11/07/2024 8:29 AM CDT Therapeutic Range: Hi-level PE/DVT heparin protocol 80.1 - 95.0 sec Lo-level PE/DVT heparin protocol 70.1 - 85.0 sec Cardiac Heparin Protocol 70.1 - 100.0 sec Lefty Barnett MD HEMATOLOGY ORDERABLES Final Res ult Performing Organization Address [facility] Co de Phone Number [facility] CLIA # [id number] [address] [address] * TYPE AND SCREEN (11/07/2024 8:00 AM CDT) ABO GROUP O 11/07/2024 9:18 AM CDT [facility] RH (D) TYPE Positive 11/07/2024 9:18 AM CDT [facility] ANTIBODY SCREEN Negative 11/07/2024 9:18 AM CDT [facility] Blood Venipuncture / Unknown 11/07/2024 8:00 AM CDT 11/07/2024 8:17 AM CDT Lefty Barnett MD BLOOD BANK ORDERABLES Edited Re sult - Final Performing Organization Address City/[facility]/ZIP Co de Phone Number [facility] CLIA#[id number] [address] [place], [place] [address] [phone] * (ABNORMAL) MAGNESIUM LEVEL (11/07/2024 8:00 AM CDT) MAGNESIUM 1.5(L) 1.6 - 2.4 mg/dL 11/07/2024 8:49 AM CDT [facility] Blood Venipuncture / Unknown 11/07/2024 8:00 AM CDT 11/07/2024 8:17 AM CDT Lefty Barnett MD CHEMISTRY ORDERABLES Final Resu lt Performing Organization Address City/[facility]/ZIP Co de Phone Number [facility] CLIA # [id number] [address] [address] * (ABNORMAL) HEMOGLOBIN A1C (11/07/2024 8:00 AM CDT) HEMOGLOBIN A1C 7.5(H) <=5.6 % 11/09/2024 11:16 AM CDT [facility] EST. AVG GLUCOSE, A1C 169 mg/dL 11/09/2024 11:16 AM CDT [facility] Blood Venipuncture / Unknown 11/07/2024 8:00 AM CDT 11/07/2024 8:17 AM CDT Narrative [facility] - 11/09/2024 11:16 AM CDT HGB A1C INTERPRETATION NORMAL: <5.7% PRE-DIABETES: 5.7 - 6.4% DIABETES: 6.5% OR GREATER Lefty Barnett MD CHEMISTRY ORDERABLES Final Resu lt Performing Organization Address [facility]/ZIP Co de Phone Number [facility] CLIA # [id number] [address] [address] * EKG 12-LEAD (11/07/2024 7:41 AM CDT) 11/07/2024 7:41 AM CDT Narrative INTERFACE SYSTEM - 11/09/2024 6:28 PM CDT [address] [address] Test Date: 2024-11-07 Pat Name: RENNY RODGERS Department: 12 Room: [address] [place] [address] Gender: M Wharf Tender Head: [id number] : 1955 Requested By: Order Number: [id number] Reading MD: Denice Hernandez Measurements Intervals Merrick Rate: 110 P: 43 KS: 160 QRS: -45 QRSD: 92 T: 53 QT: 342 QTc: 462 Interpretive Statements Sinus tachycardia with premature atrial complexes Left anterior fascicular block Abnormal ECG Electronically Signed On 11-09-2024 18:28:51 CDT by Denice Hernandez Procedure Note Denice Hernandez DO - 11/09/[address] [address] Test Date: 2024-11-07 Pat Name: RENNY HALLRES Department: 12 Room: [address] [place] [address] Gender: M [place] Tender [place]: [id number] : 1955 Requested By: Order Number: [id number] Reading : Denice Hernandez Measurements Intervals Merrick Rate: 110 P: 43 KS: 160 QRS: -45 QRSD: 92 T: 53 QT: 342 QTc: 462 Interpretive Statements Sinus tachycardia with premature atrial complexes Left anterior fascicular block Abnormal ECG Electronically Signed On 11-09-2024 18:28:51 CDT by Denice Hernandez us Lefty Barnett MD ECG ORDERABLES Final Result INTERFACE SYSTEM Refer to clinic/hospital department from Last 3 Months Insurance [facility] [id number] RX [employer] RX Member Subscriber Plan / Payer (Ef fective 2024-Present) Name:Renny Rodgers Relation to Subscriber:Self Name:Renny Rodgers Subscriber ID:Not on file Payer ID:Not on file Group ID:[id number] Type:RX Commercial Address: [place], [place] RX [employer] (INTERNAL) [facility] Advance Directives For more information, please contact: [phone] * Full Code (Latest Code Status on File) Date Activated Date Inactivated Comments 11/07/2024 7:13 AM 11/11/2024 5:38 PM
--- OUTSIDE RECORDS SUMMARY | 2024-11-25 13:33 | XMS_ITS | Patient Health Record ---
Author Organization [facility] Address [address] [place] [address] Care Team Providers Care Office Support Assistant Name Role Phone [facility] Demarcus CHAVARRIA Primary Care Provider Un available Catalino Mckeonin Unavailable [phone] [place], [place] Unavailable Unavailable Amanuel Hill Unavailable [phone] Marianna Maurer Unavailable [phone] Allergies Allergen (clinical drug ingredient) Drug/Non Drug Allergy documented on EMR Reaction Allergy Type Onset Date Status Tuberculin PPD Unknown Drug Allergy Ac tive Results Component Value Reference Range Flag Notes UA Without Micro-[place], [place] - [address] Reviewed date:04/13/2024 01:37:04 PM Interpretation: Performing Lab: Notes/Report: Glucose 0 Bili 0 Ketones 0 Sp Plato 1.010 Blood +- pH 6.5 Protein 0 Urobili 0 Nitrites 0 Leukocytes 0 Immature PLT Fraction 69621 Reviewed date:05/18/2024 10:44:16 AM Interpretation: Performing Lab: Notes/Report: Immature PLT Fraction 7.2 1.6-7.1 % HI Platelet 59 150-400 X10'3 LOW Hepatic Function Panel [id number] Reviewed date:05/19/2024 03:12:28 PM Interpretation: Performing Lab: [...] 15-37 UNIT/L HI ALT/SGPT 54 12-78 UNIT/L CBC w\ Auto Diff 81232 Reviewed date:05/19/2024 03:12:28 PM Interpretation: Performing Lab: [...] % Lymph Auto% 20.3 22.0-44.0 % LOW Park Auto% 8.4 3.0-7.0 % HI Eos Auto% 3.8 2.0-4.0 % Baso Auto% 0.5 0.0-1.0 % Imm Gran% .5 .0-.4 % HI Neutro Abs 2.46 .80-7.70 Absolute Neutrophil Count 2460 NA Lymph Abs .75 .10-4.10 Park Abs .31 .20-1.00 Eos Abs .14 .00-.40 Baso Abs .02 .00-.20 Imm Gran Abs .02 .00-.10 NRBC# .00 .00-.20 NRBC% .00 .00-.20 /100 int act WBC's Basic Metabolic Panel (BMP) 47472 Reviewed date:05/19/2024 03:12:28 PM Interpretation: Performing Lab: Notes/Report: Diagnosis Description: Unspecified cirrhosis of liver Diagnosis Description: Fatty (change of) liver, not elsewhere classified Diagnosis Description: Abnormal levels of other serum enzymes Sodium 137 136-145 MMOL/L Potassium 3.9 3.5-5.1 MMOL/L Chloride 102 98-107 MMOL/L CO2 27.6 20.0-31.0 MMOL/L Glucose Serum 253 71-110 MG/DL HI Testing p rebaformed at [facility], [address] [place] [address] [place] [address]. CLIA ID#: [id number] BUN 11 7-21 MG/DL Creat .77 .57-1.17 MG/DL T-vaiqwl-j-benzoquinone imine (NAPQI) is a metabolite of acetaminophen, [...] 8.7-10.4 MG/DL Osmo Serum,Calculated 292 280-300 MOSM/[place] [address] Reviewed date:05/19/2024 03:12:28 PM Interpretation: Performing Lab: Notes/Report: Diagnosis Description: Unspecified cirrhosis of liver Diagnosis Description: Fatty (change of) liver, not elsewhere classified Diagnosis Description: Abnormal levels of other serum enzymes Alpha Feto Prot 6.6 2.2-8.1 ng/mL Perfor med on Siemens Atellica Solution IM Prothrombin Time 42904 Reviewed date:05/19/2024 03:12:28 PM Interpretation: Performing Lab: Notes/Report: Diagnosis Description: Unspecified cirrhosis of liver Diagnosis Description: Fatty (change of) liver, not elsewhere classified Diagnosis Description: Abnormal levels of other serum enzymes ProTime 11.5 9.1-11.9 SEC Normal Range : 9.1-11.9 INR 1.09 .90-1.20 Therapaeutic Range for heart valve replacement: 2.5-3.50 Therapeutic Range: 2.0-3.0 [place] - [address] Reviewed date:07/15/2024 10:39:00 AM Interpretation: Performing Lab: Notes/Report: Glucose - Bili - Ketones - Sp Plato 1.015 Blood - pH 6.5 Protein - Urobili - Nitrites - Leukocytes - Reason For Referral Reason Retention of urine Diagnosis 1 Retention of urine, unspecified (R33.9) [facility] Provider [facility] Name [facility] Referring Provider Last Name [place] [facility]erring Provider [facility] Referred Organization [facility] Referred Provider Amanuel Hill Referred Address [address] [address],[place],[address], Referred Provider Specialty Urology Referral Priority Routine Reason 1yr F/U-CHAUDHARI Referring Provider First Name [facility] Referring Provider Last Name [place] Referring Provider [facility] Referred Organization [facility] Referred Provider Samantha Mckeon Referred Address [address],[facility],[place],[address], Referral Priority Routine Medications Medication SIG (Take, [...] Problem Status W/U Status Risk Notes Problem Type II diabetes mellitus without complication (649644097) Type 2 diabetes mellitus without complications (E11.9) Active confirmed Problem Oesophageal varices without bleeding (27073183) Secondary esophageal varices without bleeding (I85.10) Active confirmed Problem Worthy's esophagus (871186030) 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 Problem disorder of stomach (62725171) Other diseases of stomach and duodenum (K31.89) Active confirmed Problem Cirrhosis of liver (82499324) Unspecified cirrhosis of liver (K74.60) Active confirmed Problem CHAUDHARI - Nonalcoholic steatohepatitis (169062447) Nonalcoholic steatohepatitis (CHAUDHARI) (K75.81) Active confirmed Problem Portal hypertension (20228101) Portal hypertension (K76.6) Active confirmed Problem Frequency of micturition (859466683) Frequency of micturition (R35.0) Active confirmed Problem Benign prostatic hypertrophy without outflow obstruction (841602204) Benign prostatic hyperplasia without lower urinary tract symptoms (N40.0) Active confirmed Problem Lower urinary tract symptoms due to benign prostatic hypertrophy (38627672500298) Benign prostatic hyperplasia with lower urinary tract symptoms (N40.1) Active confirmed Problem Essential hypertension (45596355) Essential hypertension (I10) Active confirmed Problem Screening for malignant neoplasm of colon (985385838) Screening for malignant neoplasm of colon (Z12.11) Active confirmed Problem Urinary retention (932773236) Urinary retention (R33.9) Active confirmed Problem Obstructive sleep apnea (39720444) Obstructive sleep apnea (G47.33) Active confirmed Problem Lumbar spondylosis (054719385) Lumbar spondylosis (M47.816) Active confirmed Problem Esophageal varices without bleeding (47819044) Esophageal varices determined by endoscopy (I85.00) Active confirmed Problem Obstructive sleep apnea syndrome (61840893) AUGUST (obstructive sleep apnea) (G47.33) Active confirmed Problem Gastroesophageal reflux disease (438335454) Gastroesophageal reflux disease, esophagitis presence not specified (K21.9) Active confirmed Problem Obese class I (finding) (888891465134497) Obesity (BMI 30.0-34.9) (E66.9) Active confirmed Problem Primary osteoarthritis (491363898) Primary osteoarthritis involving multiple joints (M15.0) Active confirmed Problem Esophageal varices without bleeding (27005740) Esophageal varices without bleeding, unspecified esophageal varices type (I85.00) Active confirmed Problem Gastroesophageal reflux disease (569137372) Gastroesophageal reflux disease, unspecified whether esophagitis present (K21.9) Active confirmed Problem Fatty liver (013562858) 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) Active confirmed Vital Signs Heart Rate 95 /min 07/15/2024 Temperature 98.4 degrees Fahrenheit 07/15/2024 Respiratory Rate 20 /min 05/11/2024 Oximetry 96 % 05/11/2024 Blood pressure diastolic 83 mm Hg 07/15/2024 Height-cm 182.88 cm 07/15/2024 Weight-kg 104.24 kg 07/15/2024 Height 72 in 07/15/2024 Blood pressure systolic 128 mm Hg 07/15/2024 Weight 229.8 lbs 07/15/2024 BMI 31.16 kg/m2 07/15/2024 Procedures Procedure Date Ordered Date Performed Result Body Sit e PVR (Post Void Residual) 04/13/2024 04/13/2024 N/A PVR (Post Void Residual) 07/15/2024 07/15/2024 116mL Encounters Encounter Location Date Provider Diagnosis [facility] [address] [place] [address] 04/13/2024 Marianna Maurer Benign prostatic hyperplasia with lower urinary tract symptoms N40.1 and Urinary retention R33.9 [facility] [address] [facility] [place] [address] 05/11/2024 Abodunrin Badejo Unspecified cirrhosis of liver [...] without complications E11.9 and Urinary retention R33.9 [facility] [address] [place] [address] [place] [address] 07/15/2024 Marianna Maurer Benign prostatic hyperplasia with lower urinary tract symptoms N40.1 ; Urinary retention R33.9 and Frequency of micturition R35.0 [facility] [address] [place] [address] [place] [address] 03/21/2024 Amanuel Hill [facility] [address] [place] [address] [place] [address] 04/12/2024 Amanuel [facility] [address] [facility] [place] [address] 05/10/2024 Abodunrin Badejo Unspecified cirrhosis of liver K74.60 ; Fatty liver K76.0 and Elevated liver enzymes R74.8 [facility] [address] [place] [address] [place] [address] 07/14/2024 Amanuel Rosasay [facility] [address] [place] [address] [place] [address] 07/15/2024 Amanuel Hill Encounter for screening for [...] Unspecified cirrhosis of liver (ICD-10 - K74.60) 07/15/2024 Benign prostatic hyperplasia with lower urinary tract symptoms (ICD-10 - N40.1) PLAN - CONTINUE TO TAKE MEDICATION PRESCRIBED. 07/15/2024 Urinary retention (ICD-10 - R33.9) Patient may come to the clinic for nurse visit if he feels they feel they are not emptying and need to have their bladder checked 05/11/2024 Metabolic dysfunction-associat ed steatotic liver disease (MASLD) (ICD-10 - K76.0) 07/15/2024 Encounter for screening for malignant neoplasm of prostate (ICD-10 - Z12.5) 07/15/2024 Frequency of micturition (ICD-10 - R35.0) PLAN - CONTINUE TO TAKE MEDICATION PRESCRIBED. 05/10/2024 Fatty liver (ICD-10 - K76.0) 05/11/2024 Gastroesophageal reflux disease, esophagitis presence not specified (ICD-10 - K21.9) 05/10/2024 Elevated liver enzymes (ICD-10 - R74.8) [...] Pending Test Test Name Order Date PSA Diagnostic--02258 07/15/2024 zzzMRI Outside CD 10/22/2022 Future Test Test Name Order Date EGD, Upper GI Diagnostic-09862 5 Prothrombin Time 70829 05/11/2025 Alpha Fetoprotein Tumor Marker 54922 03/2025 Basic Metabolic Panel (BMP) 29651 2025 CBC w\ Auto Diff 12041 05/11/2025 Hepatic Function Panel 67084 05/11/2025 Next Appt Details Provider Name:Samantha hatch, 12/16/2024 11:30:00 AM, [address], [place], [address], Provider Name:Marianna Gibbs, 01/16/2025 10:20:00 AM, [address], [place], [address], Provider Name:Samantha hatch, 05/17/2025 09:00:00 AM, [address], [place], [address], Insurance Providers Payer Name Payer Address Payer Phone Subscriber Number Group Number Insured Name Patient Relationship to Insured Coverage Start Date Coverage End Date [employer] [address] [place] [phone] [id number] Renny Holm Self - patient is the insured [facility] C3 [address] [place] [address] [id number] Gastro Amended Renny Green Self - [...] left shoulder arthroplasty bilateral hip replacement 07/2020 Colonoscopy-diverticulosis left colon, i nternal hemorrhoids 04-28-2019 EGD-portal hypertensive alfonzo ropathy, non-bleeding diverticulum, scars mid esophagus-distal esophagus 04-28-2019 Hospitalization History Reason Date(Month/Year) [facility] in February ER for back.
[2024-11-25 13:41] VITALS: BP 130/67; PULSE 99; RESP 18; TEMP 36.9; O2SAT 98
[2024-11-25 14:34] LABS: Hematocrit 26.7 % (37-53); Hemoglobin 8.30 g/dL (11.27-16.99); Mean Corpuscular HGB Conc 31.1 g/dL (30-55); Mean Corpuscular Hemoglobin 25.5 pg (27-33); Mean Corpuscular Volume 82.2 fl (82-101); Nucleated Red Blood Cells % 0 %; Platelet Count 93 10^3/cmm (157-399); Red Blood Count 3.25 10^6/uL (3.85-5.65); White Blood Count 3.86 10^3/uL (3.29-11.43)
[2024-11-25 14:46] LABS: INR 1.07 (0.8-1.2); Partial Thromboplastin Time 32.2 SECONDS (23.9-36.7); Prothrombin Time 14.70 SECONDS (12.1-14.9)
[2024-11-25 14:52] LABS: Alanine Aminotransferase 23 U/L (0-41); Albumin Level 3.8 g/dL (3.5-5.2); Alkaline Phosphatase 139 U/L (40-130); Anion Gap 16.9 (5-19); Aspartate Amino Transferase 40 U/L (0-40); Blood Urea Nitrogen 13 mg/dL (8-23); Calcium 9.1 mg/dL (8.5-10.5); Carbon Dioxide 23 mmol/L (22-29); Chloride 102 mmol/L (98-107); Creatinine Clr Calc Pharmacy 109.3656; Globulin 2.2 g/dL (1.3-4.6); Glucose 133 mg/dL (65-115); Osmolality Calculated 288 mOsm/kg (285-295); Potassium 3.9 mmol/L (3.5-5.1); Sodium 138 mmol/L (136-145); Total Protein 6.0 g/dL (6.6-8.7)
--- NOTE | 2024-11-25 15:43 | W.ED.GENADLT ---
HPI - General Adult General: Chief complaint: General Medical Stated complaint: abnormal labs sent by [facility] Time Seen by Provider: 11/25/24 15:26 History of Present Illness: 69-year-old man with a history of cirrhosis and hyperlipidemia who presents to the emergency room after he was sent here by the [facility]. He says they checked his blood counts and they were low and he was told to come here for transfusion. However his hemoglobin is over 8. He was seen here recently after having had a GI bleed and was sent to [place]. There he said he was scoped several times and ended up having some sort of clip placed in his abdomen. Possibly a variceal bleed?. He is had no further bleeding. No vomiting. He says he has been feeling a bit bloated and was having trouble having bowel movements but took stool softener and had a bowel movement yesterday. Related Data Home Medications ?Medication ?Instructions ?Recorded ?Confirmed acetaminophen 650 mg 1,300 mg PO Q12H 04/22/21 10/11/24 tablet,extended release (Tylenol Arthritis Pain) cholecalciferol (vitamin D3) 50 50 mcg PO DAILY 04/22/21 10/11/24 mcg (2,000 unit) capsule diphenhydramine HCl 25 mg capsule 25 mg PO TID PRN allergies 04/22/21 10/11/24 (Allergy (diphenhydramine)) finasteride 5 mg tablet 5 mg PO DAILY 04/22/21 10/11/24 lisinopril 20 1 tab PO DAILY 04/22/21 10/11/24 mg-hydrochlorothiazide 25 mg tablet milk thistle 150 mg capsule 150 mg PO BID 04/22/21 10/11/24 omeprazole 20 mg tablet,delayed 20 mg PO DAILY 04/22/21 10/11/24 release tamsulosin 0.4 mg capsule 0.4 mg PO DAILY 04/22/21 10/11/24 sorbital laxative See Rx Instructions .Route .COMPLEX 11/05/22 10/11/24 cyclobenzaprine 10 mg tablet 10 mg PO ONCE 08/17/23 10/11/24 aspirin 81 mg tablet,delayed 81 mg PO DAILY 02/15/24 10/11/24 release (Max Low Dose Aspirin) vitamin B complex 1 cap PO DAILY 02/15/24 10/11/24 Previous Rx's ?Medication ?Instructions ?Recorded naproxen 500 mg tablet (Naprosyn) 500 mg PO BID PRN pain #20 tabs 02/25/21 blood-glucose sensor (Dexcom G7 #3 ea 06/30/24 Sensor device) blood-glucose,coremaker helper,cont #1 ea 06/30/24 (Dexcom G7 Antenna Specialist) insulin aspart U-100 100 unit/mL 2 unit (0.02 mL) SUBCUT .TIDAC 1 10/07/24 (3 mL) subcutaneous pen (Novolog month #15 mL FlexPen U-100 Insulin aspart) insulin glargine-yfgn 100 unit/mL See Rx Instructions .Route 10/11/24 (3 mL) subcutaneous pen .COMPLEX #15 mL semaglutide 1 mg/dose (4 mg/3 mL) 1 mg (0.75 mL) SUBCUT Q7D #3 mL 10/11/24 subcutaneous pen injector (Ozempic) pen needle, diabetic 32 gauge x #100 ea 10/24/24 Allergies Allergy/AdvReac Type Severity Reaction Status Date / Time tuberculin, purified protein Allergy Unknown Verified 07/11/24 15:27 deriva Review of Systems Narrative: Constitutional symptoms: Negative except as documented in HPI. Skin symptoms: Negative except as documented in HPI. Eye symptoms: Negative except as documented in HPI. ENMT symptoms: Negative except as documented in HPI. Respiratory symptoms: Negative except as documented in HPI. Cardiovascular symptoms: Negative except as documented in HPI. Gastrointestinal symptoms: Negative except as documented in HPI. Genitourinary symptoms: Negative except as documented in HPI. Musculoskeletal symptoms: Negative except as documented in HPI. Neurologic symptoms: Negative except as documented in HPI. Psychiatric symptoms: Negative except as documented in HPI. Endocrine symptoms: Negative except as documented in HPI. PFSH ED PFSH: Social History Smoking and tobacco/nicotine status: never used tobacco/nicotine Alcohol intake: never Substance/Drug Use: never Physical Exam Narrative: EXAM NARRATIVE: General: Alert, no acute distress. Skin: Warm, dry. Head: Normocephalic, atraumatic. Neck: Supple, trachea midline. Eye: Extraocular movements are intact. Ears, nose, mouth and throat: mucosa moist. Cardiovascular: Regular, Normal peripheral perfusion. Respiratory: Lungs are clear to auscultation, respirations are non-labored, breath sounds are equal, Symmetrical chest wall expansion. Gastrointestinal: Soft, Nontender, Non distended Musculoskeletal: Normal ROM, no deformity. Neurological: Alert and oriented, No focal neurological deficit observed. Psychiatric: Cooperative, appropriate mood & affect. Course Vital Signs: Vital signs: Vital Signs Temperature 98.4 F 11/25/24 13:41 Pulse Rate 86 11/25/24 16:00 Respiratory Rate 18 11/25/24 13:41 Blood Pressure 130/83 11/25/24 16:00 Pulse Oximetry 99 11/25/24 16:00 Oxygen Delivery Me thod Room Air 11/25/24 13:41 MDM - General Adult Medical Decision Making Medical decision making: Differential diagnosis including but not limited to and based on the above HPI, review of systems and physical exam: In this patient with reported anemia I am repeating lab work. CBC and a BMP. Orders placed to evaluate differential diagnosis based on the above differential, HPI and physical exam Lab Review: Laboratory results were reviewed and interpreted by myself the emergency room physician. Hemoglobin is 8.3 today. Not in the range of needing transfusion. Also his vitals are normal and he is asymptomatic. I also checked with [facility] and his hemoglobin was 7.8 at discharge there a couple of weeks ago. I reviewed the patient's medical record. Reexamination: Patient remained stable. No increased work of breathing. No altered mental status. No focal motor deficits. Assessment and plan: Anemia ?No acute blood loss. Hemoglobin is actually gone up a little bit since discharge. - Discharged home - Discussed plan with patient. Answered any questions. - Evaluation and treatment of this problem were appropriate in the emergency setting. Lab Data 11/25/24 14:12 11/25/24 14:12 Laboratory Results WBC 3.86 10^3/uL (3.29-11.43) 11/25/24 14:12 RBC 3.25 10^6/uL (3.85-5.65) L 11/25/24 14:12 Hgb 8.30 g/dL (11.27-16.99) L 11/25/24 14:12 Hct 26.7 % (37-53) L 11/25/24 14:12 MCV 82.2 fl (82-101) 11/25/24 14:12 MCH 25.5 pg (27-33) L 11/25/24 14:12 MCHC 31.1 g/dL (30-55) 11/25/24 14:12 RDW 17.4 % (12.1-15.1) H 11/25/24 14:12 Plt Count 93 10^3/cmm (157-399) L 11/25/24 14:12 MPV 11.3 fL (7.4-10.4) H 11/25/24 14:12 Neut % (Auto) 72.4 % 11/25/24 14:12 Lymph % (Auto) 17.4 % 11/25/24 14:12 [place] % (Auto) 7.8 % 11/25/24 14:12 Eos % (Auto) 2.1 % 11/25/24 14:12 Baso % (Auto) 0.3 % 11/25/24 14:12 Neut # (Auto) 2.80 10^3/uL (1.8-7.7) 11/25/24 14:12 Lymph # (Auto) 0.7 10^3/uL (0.8-4.8) L 11/25/24 14:12 [place] # (Auto) 0.3 10^3/uL (0.2-0.9) 11/25/24 14:12 Eos # (Auto) 0.1 10^3/uL (0.0-0.8) 11/25/24 14:12 Baso # (Auto) 0.0 10^3/uL (0.0-0.1) 11/25/24 14:12 Nucleated RBC % (auto) 0 % 11/25/24 14:12 Nucleated RBCs # 0.0 /100WBC 11/25/24 14:12 PT 14.70 SECONDS (12.1-14.9) 11/25/24 14:12 INR 1.07 (0.8-1.2) 11/25/24 14:12 APTT 32.2 SECONDS (23.9-36.7) 11/25/24 14:12 Sodium 138 mmol/L (136-145) 11/25/24 14:12 Potassium 3.9 mmol/L (3.5-5.1) 11/25/24 14:12 Chloride 102 mmol/L (98-107) 11/25/24 14:12 Carbon Dioxide 23 mmol/L (22-29) 11/25/24 14:12 Anion Gap 16.9 (5-19) 11/25/24 14:12 BUN 13 mg/dL (8-23) 11/25/24 14:12 Creatinine 0.6 mg/dL (0.7-1.2) L 11/25/24 14:12 GFR Calculation 133.6 mL/min (90-130) H 11/25/24 14:12 Glucose 133 mg/dL (65-115) H 11/25/24 14:12 Calculated Osmolality 288 mOsm/kg (285-295) 11/25/24 14:12 Calcium 9.1 mg/dL (8.5-10.5) 11/25/24 14:12 Total Bilirubin 0.8 mg/dL (0.15-1.2) 11/25/24 14:12 AST 40 U/L (0-40) 11/25/24 14:12 ALT 23 U/L (0-41) 11/25/24 14:12 Alkaline Phosphatase 139 U/L (40-130) H 11/25/24 14:12 Total Protein 6.0 g/dL (6.6-8.7) L 11/25/24 14:12 Albumin 3.8 g/dL (3.5-5.2) 11/25/24 14:12 Globulin 2.2 g/dL (1.3-4.6) 11/25/24 14:12 Blood Type O Positive 11/25/24 14:12 Rho(D) Type Rh positive 11/25/24 14:12 Antibody Screen Negative 11/25/24 14:12 No radiology studies performed this visit Discharge Plan Discharge Patient Disposition: Home Clinical Impression: Anemia Condition: Stable Prescriptions: No Action lisinopril-hydrochlorothiazide 20-25 mg tablet 1 tab PO DAILY omeprazole 20 mg tablet,delayed release (DR/EC) 20 mg PO DAILY finasteride 5 mg tablet 5 mg PO DAILY tamsulosin 0.4 mg capsule 0.4 mg PO DAILY cholecalciferol (vitamin D3) 50 mcg (2,000 unit) capsule 50 mcg PO DAILY milk thistle 150 mg capsule 150 mg PO BID Rx Instructions: give with meal/snack acetaminophen [Tylenol Arthritis Pain] 650 mg tablet extended release 1,300 mg PO Q12H diphenhydramine HCl [Allergy (diphenhydramine)] 25 mg capsule 25 mg PO TID PRN (Reason: allergies) Ozempic 1 mg/dose (4 mg/3 mL) pen injector 1 mg SUBCUT Q7D Qty: 3 4RF Rx Instructions: 1mg weekly sorbital laxative See Rx Instructions .ROUTE .COMPLEX Rx Instructions: as directed cyclobenzaprine 10 mg tablet 10 mg PO ONCE (DME) Dexcom G7 Antenna Specialist Misc See Rx Instructions .Route Qty: 1 0RF Rx Instructions: As directed (DME) Dexcom G7 Sensor Device See Rx Instructions .Route Qty: 3 3RF Rx Instructions: change every 10 days insulin aspart U-100 [Novolog FlexPen U-100 Insulin] 100 unit/mL (3 mL) insulin pen 2 unit SUBCUT .TIDAC 30 Days Qty: 15 3RF insulin glargine-yfgn 100 unit/mL (3 mL) insulin pen See Rx Instructions .ROUTE .COMPLEX Qty: 15 0RF Dose Instruction: INJECT 10 UNITS UNDER THE SKIN ONCE A DAY . ADMINISTER AT SAME TIME EACH DAY DIRECTED. DISCARD ANY OPEN CARTRIDGE AFTER 28 DAYS. Rx Instructions: INJECT 10 UNITS UNDER THE SKIN ONCE A DAY . ADMINISTER AT SAME TIME EACH DAY DIRECTED. DISCARD ANY OPEN CARTRIDGE AFTER 28 DAYS. (DME) pen needle, diabetic 32 gauge x 5/32 needle See Rx Instructions .ROUTE .COMPLEX Qty: 100 1RF Dose Instruction: USE 1 NEEDLE UNDER THE SKIN DIRECTED Rx Instructions: USE 1 NEEDLE UNDER THE SKIN DIRECTED naproxen [Naprosyn] 500 mg tablet 500 mg PO BID PRN (Reason: pain) Qty: 20 0RF aspirin [Max Low Dose Aspirin] 81 mg Tablet,Delayed Release (Dr/Ec) 81 mg PO DAILY vitamin B complex [B Complex] Capsule 1 cap PO DAILY Discharge Orders: Discharge ED (Routine); Ordered 11/25/24 Ordered By: Melissa Horton Referrals: Karyn Henson MD [Primary Care Provider, Family Practice] Discharge Diet: Usual diet Discharge Activity: Increase activity as tolerated Patient Instructions: Opioid Safety, Pain Management, Patient Portal & Tricia Instructions Activity Restrictions/Additional Instructions: Your hemoglobin has actually improved since you were discharged from [facility] in [place]. Your hemoglobin is 8.7 today. Your vital signs are normal. No need for transfusion today. Thank you for choosing [facility] for your healthcare needs today. You have been screened and evaluated and felt safe for discharge. Health conditions do change or evolve sometimes and as such it is important that you follow up with your Primary Doctor to be re checked, 3-5 days is a general good time frame for follow up. You are always welcome to return to the ED for re assessment if your symptoms are worsening or you have new concerns Print Language: Guamanian Coding Level of Care Code ED Chemistry Tutor for Lokesh Meyer
[2024-11-25 16:00] VITALS: BP 130/83; PULSE 86; O2SAT 99
== END 2024-11-25 16:01 | disposition home or self-care (01) ==
PROVIDERS: Emergency Provider Emergency Medicine; PCP Family Medicine
DX: D64.9 Anemia, unspecified (principal); Z79.4 Long term (current) use of insulin; Z79.82 Long term (current) use of aspirin
CPT/HCPCS: 36415; 80053; 85025; 85610; 85730; 86850; 86900; 99283

== ENCOUNTER 2024-11-30 07:23 | Outpatient (CLI) | payer OTHER, SELFPAY ==
--- NOTE | 2024-11-30 07:29 | US_ITS ---
WS: [id number] RIGHT UPPER QUADRANT ULTRASOUND HISTORY: LIVER CIRRHOSIS COMPARISON: 05/05/2022, CT 11/06/2024 Liver: 13.1 cm in length. Small shrunken cirrhotic liver. Previously described hypodensities within the liver are not seen by ultrasound. Portal Vein: Normal hepatopetal flow with monophasic waveform. Gallbladder: Normally distended gallbladder with diffuse wall thickening which is probably related to hepatocellular disease and ascites. CBD: 0.3 cm Pancreas: Obscured completely. Right kidney: 10.5 cm in length. Normal size and echogenicity. No hydronephrosis or mass. Aorta and IVC: Unremarkable abdominal aorta and IVC. Small amount of ascites surrounding the liver. US/US abdomen limited 80017 IMPRESSION: 1. Cirrhotic liver. No cyst or solid mass identified by ultrasound. 2. Small amount of ascites surrounding the liver. 3. No cholelithiasis.
== END 2024-11-30 07:24 | disposition home or self-care (01) ==
LOC: RAD 07:24
PROVIDERS: PCP Family Medicine; Visit Provider Family Medicine
DX: K74.60 Unspecified cirrhosis of liver (principal); R18.8 Other ascites
CPT/HCPCS: 76705

== ENCOUNTER 2025-01-09 15:27 | Outpatient (CLI) | payer OTHER, SELFPAY ==
[2025-01-09 16:33] LABS: Prostate Specific Antigen 0.094 ng/mL (0-4)
== END 2025-01-09 15:28 | disposition home or self-care (01) ==
LOC: LAB 15:28
PROVIDERS: PCP Family Medicine; Visit Provider Urology
DX: E11.9 Type 2 diabetes mellitus without complications (principal); Z12.5 Encounter for screening for malignant neoplasm of prostate
CPT/HCPCS: 36415; 84153

== ENCOUNTER → 2025-01-11 14:56 | Outpatient (BNVA) | payer OTHER, SELFPAY | PROVIDERS: PCP Family Medicine; Visit Provider Nurse Practitioner Family | DX: D18.01 Hemangioma of skin and subcutaneous tissue (principal); L28.1 Prurigo nodularis; S50.912A Unspecified superficial injury of left forearm, initial encounter; S50.911A Unspecified superficial injury of right forearm, initial encounter; I78.1 Nevus, non-neoplastic; X58.XXXA Exposure to other specified factors, initial encounter | CPT/HCPCS: 99213 ==

== ENCOUNTER 2025-01-23 15:58 | Emergency (ER) | payer OTHER, SELFPAY ==
--- OUTSIDE RECORDS SUMMARY | 2024-03-24 03:30 | XMS_ITS ---
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 Encounters Encounter Location Date Provider Diagnosis Counts Include [address] [facility] [address] [facility] [address] [place] [address] 03/24/2024 Marianna Maurer Plan Of Treatment Next Appt Details Provider Name:Samantha hatch, 02/13/2025 03:30:00 PM, [address], [place], [address], Provider Name:Samantha hatch, 05/17/2025 09:00:00 AM, [address], [place], [address], Provider Name:Marianna Gibbs, 07/18/2025 10:20:00 AM, [address], [address], [place], [address], Progress Notes * Renny RODGERS LDOB:1955 (69 yo M)Acc No.[id number]:03/24/2024 Progress Notes Patient: Jam garciajabari Renny Rowland Provider: GREG Huitron DOB:1955 A ge:69 Y S ex:Male Date:03/24/2024 Address:[address] [place], [place] [id number] Pcp:Demarcus Helton, DO Subjective: * Chief Complaints: * N p referral for urinary retention * Electronic signature of GREG Sheehan on 01/23/2025 at 07:16 PM 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
--- OUTSIDE RECORDS SUMMARY | 2024-12-16 05:30 | XMS_ITS ---
Author Organization [facility] Address [address] [place] [address] Care Team Providers Care Advertising Sales Consultant Name Role Phone [facility] Primary Care Provider Un available Samantha Mckeon Unavailable [phone] Saima HOYOS Unavailable Unavailable REASON FOR VISIT Cirrhosis Encounters Encounter Location Date Provider Diagnosis [facility] [address] [place] [address] 12/16/2024 Samantha Mckeon Plan Of Treatment Next Appt Details Provider Name:Samantha hatch, 02/13/2025 03:30:00 PM, [address] [place], [place], [address], Provider Name:Samantha hatch, 05/17/2025 09:00:00 AM, [address], [place], [address], Provider Name:Marianna Gibbs, 07/18/2025 10:20:00 AM, [address], [address], [place], [address], Progress Notes * Renny RODGERS LDOB:1955 (69 yo M)Acc No.[id number]:12/16/2024 History and Physical Patient: Renny Waller Provider: Broderick Mckeon MD :1955 A ge:69 Y S ex:Male Date:12/16/2024 Address:[address] [place], [place] [id number] Pcp:Demarcus Helton DO Subjective: * Chief Complaints: * C irrhosis Billing Information: * Procedure Codes: * Electronic signature of Lexii Mckeon MD on 01/23/2025 at 07:15 PM REFRIGERATOR CABINETMAKER Sign off status: Pending * Provider: Broderick Mckeon MD Date: 02/16/2024 Generated for Shira cartwright/Corazon/Briannesmitting on: 03/26/2024 07:15 PM REFRIGERATOR CABINETMAKER
--- OUTSIDE RECORDS SUMMARY | 2025-01-16 04:20 | XMS_ITS ---
Author Organization [facility] Address [address] [place] [address] Care Team Providers Care Duct Layer Name Role Phone Demarcus Helton DO Primary Care Provider Un available Badejo, Abodunrin Unavailable [phone] ROMAIN, Marcellus Unavailable Unavailable Marianna Maurer Unavailable [phone] Allergies Allergen (clinical drug ingredient) Drug/Non Drug Allergy documented on EMR Reaction Allergy Type Onset Date Status Tuberculin PPD Unknown Drug Allergy Ac tive Results Component Value Reference Range Notes UA Without Micro-Auto, [place] - [id number] Reviewed date:01/16/2025 10:00:18 AM Interpretation: Performing Lab: Notes/Report: Glucose - Bili - Ketones +- Sp [place] 1.015 Blood - pH 6.0 Protein +- Urobili - Nitrites - Leukocytes - REASON FOR VISIT 6 m f/u PSA, UA, PVR, MARIAN Medications Medication SIG (Take, Route, Frequency, Duration) Notes Start Date End Date Status Tamsulosin HCl 0.4 MG Capsule 1 capsule Orally Once a day; Duration: 90 days 01/17/20 25 Active Keto Weight loss pill once a day Not-Takin g Omeprazole 20 MG Capsule Delayed Release 1 capsule 30 minutes before morning meal Orally Once a day Not-Takin g Potassium 99 MG Tablet 1 tablet Orally Once a day Not-Takin g Finasteride 5 MG Tablet 1 tablet Orally Once a day; Duration: 90 days 01/17/20 25 Active Hydrochlorothiazide 25 MG / Lisinopril 20 MG Oral Tablet Hydrochlorothiazide 25 MG / Lisinopril 20 MG Oral Tablet 11/12/19 19 Not-Takin g Iron 28 MG Tablet 1 tablet Orally Once a day Not-Takin g 24 HR Naproxen 500 MG Extended Release Tablet 24 HR Naproxen 500 MG Extended Release Tablet 11/12/19 19 Not-Takin g Constulose 10 GM/15ML Solution 15 mL as needed Orally Once a day Not-Takin g Finasteride 5 MG Tablet 1 tablet Orally Once a day Not-Takin g Naproxen 500 MG Tablet 1 tablet with food or milk as needed Orally every 12 hrs Active NovoLOG 100 UNIT/ML Solution as directed Injection daily Active Ozempic (1 MG/DOSE) 4 MG/3ML Solution Pen-injector as directed Subcutaneous once a week Has cut dose in half per PCP Active Tamsulosin HCl 0.4 MG Capsule 1 capsule Orally Once a day; Duration: 90 days 07/16/19 25 026 Active Vitamin D3 25 MCG (1000 UT) Capsule 1 capsule Orally Once a day Active Milk Thistle 500 MG Capsule as directed Orally once a day Active Multivitamin - Tablet 1 tablet Orally Once a day Active Lantus SoloStar 100 UNIT/ML Solution Pen-injector as directed Subcutaneous daily Active Lisinopril-hydroCHLOROt hiazide 20-25 MG Tablet 1 tablet Orally Once a day Active Metoprolol Succinate ER 25 MG Tablet Extended Release 24 Hour 1/2 tablet Orally Once a day Active Aspirin 81 MG Tablet Delayed Release 1 tablet Orally Once a day Active Cyclobenzaprine HCl 10 MG Tablet 1 tablet at bedtime as needed Orally Once a day Not-Takin g Finasteride 5 MG Tablet 1 tablet Orally Once a day; Duration: 90 days 07/16/19 25 026 Active Mariluz crystalized root to help with stomach Active Social History Tobacco Use: Social History Observation Description Date Details (start date - stop date) Former Smoker NA - NA Social History Tobacco Use: Social Info Question Answer Notes Tobacco Control (Standard) Tobacco use: Former smoker Vital Signs Temperature 98.27 degrees Fahrenheit 025 Blood pressure systolic 131 mm Hg 01/17/20 25 Blood pressure diastolic 83 mm Hg 025 Heart Rate 94 /min 01/16/2025 Height 72 in 01/16/2025 Weight 239 lbs 01/16/2025 BMI 32.41 kg/m2 01/16/2025 Height-cm 182.88 cm 01/16/2025 Weight-kg 108.41 kg 01/16/2025 Procedures Procedure Date Ordered Date Performed Result Body Sit e PVR (Post Void Residual) 01/16/2025 01/16/2025 N/A Encounters Encounter Location Date Provider Diagnosis [facility] [address] [place], [place] [id number] 01/16/2025 Marianna Maurer Benign prostatic hyperplasia with lower urinary tract symptoms N40.1 and Urinary retention R33.9 Assessments Encounter Date Diagnosis (ICD Code) Assessment Notes Treatment Notes Treatment Clinical Notes Section Notes 01/16/2025 Benign prostatic hyperplasia with lower urinary tract symptoms (ICD-10 - N40.1) 01/16/2025 Urinary retention (ICD-10 - R33.9) 01/16/2025 Other Continue taking Finasteride 5 mg and Tamsulosin 0.4 mg daily for BPH Patient defers MARIAN due to bad hemorrhoids at the time PVR most likely higher due to ascities Follow up in 6 months with ua and pvr Plan Of Treatment Medication Medication Name Sig Start Date Stop Date Notes Tamsulosin HCl 0.4 MG Capsule 1 capsule Orally Once a day; Duration: 90 days 01/16/2025 Finasteride 5 MG Tablet 1 tablet Orally Once a day; Duration: 90 days 01/16/2025 Treatment Notes Assessment Notes Other Continue taking Finasteride 5 mg and Tamsulosin 0.4 mg daily for BPH Patient defers MARIAN due to bad hemorrhoids at the time PVR most likely higher due to ascities Follow up in 6 months with ua and pvr Next Appt Details Follow Up: 6 Months, Reason: see other Provider Name:Samantha hatch, 02/13/2025 03:30:00 PM, [address] [place] [place], [place], [id number], Provider Name:Samantha hatch, 05/17/2025 09:00:00 AM, [address] [place], [place], [phone], Provider Name:Marianna Gibbs, 07/18/2025 10:20:00 AM, [address], [address], [place], [address], History and Physical Notes * HPI (History of Present Illness) Category Sub-Category Detail Notes Category Not es Provider Note 69-year-old male patient presents to clinic for follow-up Last seen in April 2024 Chief Complaint - BPH, urinary retention, had a traumatic experience with a cysto in the past with another urologist BPH = 5 mg finasteride, takes tamsulosin 0.4 mg twice a day 01/09/2025 - 0.094 = 0.188 Has dark urine - he has liver disease. He had no complaints about urination at this time. He has had other health complications. Examination Category Sub-Category Detail Notes Category Not es General Examination GENERAL APPEARANCE: alert, in no d istress HEAD: normocephalic, atrau matic HEART: Regular rate and rhy thm, S1 S2 normal LUNGS: clear to auscultatio n bilaterally, no wheezes, rales, or rhonchi ABDOMEN: soft, nontender, non distended EXTREMITIES: no edema of bilatera l lower extremities. MALE GENITOURINARY: Penis: Normal phallu s. No lesions or masses Scrotum: Skin is normal. Testes: Descended bilaterally without masses. Epididymes: Normal bilaterally without masses, edema, or induration LYMPH NODES: No cervical lymphade nopathy. 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 He had no complaints about urination at this time. He has had other health complications. * ROS: G eneral - Multi System: Constitutional D enies, fever, chills. G enitourinary S ee HPI. * Medical History: Anxiety Disorder of liver Heart disease Kidney stone Osteoporosis Sleep apnea Steatosis of liver Arthritis Heart disease BPH (benign prostatic hyperplasia) type II diabetes Hx inguinal hernia Bleeding ulcer Medical History Verified * Surgical History: bilateral inguinal hernia repair left shoulder arthroplasty bilateral hip replacement 07/2020 Colonoscopy-diverticulosis left colon, internal hemorrhoids 04-28-2019 EGD-portal hypertensive gastropathy, non-bleeding diverticulum, scars mid esophagus-distal esophagus 04-28-2019 Surgical History verified. * Hospitalization/Major Diagno stic Procedure: OM in February ER for back. * Family History: F ather: unknown. M other: , diabetes. 1 son(s) - healthy. . F amily History Verified.. Mom's side no history of colon cancer. Father's side does not know. * Social History: T obacco Use: T obacco Control (Standard) T obacco use: F ormer smoker S ocial History Verified. * Medications: T akingAspirin 81 MG Tablet Delayed Release 1 tablet Orally Once a day Finasteride 5 MG Tablet 1 tablet Orally Once a day , stop date 07/10/2025Ginger , Notes to Pharmacist: crystalized root to help with stomachLantus SoloStar 100 UNIT/ML Solution Pen-injector as directed Subcutaneous daily Lisinopril-hydroCHLOROthiazide 20-25 MG Tablet 1 tablet Orally Once a day Metoprolol Succinate ER 25 MG Tablet Extended Release 24 Hour 1/2 tablet Orally Once a day Milk Thistle 500 MG Capsule as directed Orally once a day Multivitamin - Tablet 1 tablet Orally Once a day Naproxen 500 MG Tablet 1 tablet with food or milk as needed Orally every 12 hrs NovoLOG 100 UNIT/ML Solution as directed Injection daily Ozempic (1 MG/DOSE) 4 MG/3ML Solution Pen-injector as directed Subcutaneous once a week , Notes to Pharmacist: Has cut dose in half per PCPTamsulosin HCl 0.4 MG Capsule 1 capsule Orally Once a day , stop date 07/10/2025Vitamin D3 25 MCG (1000 UT) Capsule 1 capsule Orally Once a day Taking Aspirin 81 MG Tablet Delayed Release 1 tablet Orally Once a day Taking Finasteride 5 MG Tablet 1 tablet Orally Once a day , stop date 07/10/2025Taking Mariluz , Notes to Pharmacist: crystalized root to help with stomachTaking Lantus SoloStar 100 UNIT/ML Solution Pen-injector as directed Subcutaneous daily Taking Lisinopril-hydroCHLOROthiazide 20-25 MG Tablet 1 tablet Orally Once a day Taking Metoprolol Succinate ER 25 MG Tablet Extended Release 24 Hour 1/2 tablet Orally Once a day Taking Milk Thistle 500 MG Capsule as directed Orally once a day Taking Multivitamin - Tablet 1 tablet Orally Once a day Taking Naproxen 500 MG Tablet 1 tablet with food or milk as needed Orally every 12 hrs Taking NovoLOG 100 UNIT/ML Solution as directed Injection daily Taking Ozempic (1 MG/DOSE) 4 MG/3ML Solution Pen-injector as directed Subcutaneous once a week , Notes to Pharmacist: Has cut dose in half per PCPTaking Tamsulosin HCl 0.4 MG Capsule 1 capsule Orally Once a day , stop date 07/10/2025Taking Vitamin D3 25 MCG (1000 UT) Capsule 1 capsule Orally Once a day Not-Kwefyv45 HR Naproxen 500 MG Extended Release Tablet , Notes to Pharmacist: 24 HR Naproxen 500 MG Extended Release TabletConstulose 10 GM/15ML Solution 15 mL as needed Orally Once a day Cyclobenzaprine HCl 10 MG Tablet 1 tablet at bedtime as needed Orally Once a day Finasteride 5 MG Tablet 1 tablet Orally Once a day Hydrochlorothiazide 25 MG / Lisinopril 20 MG Oral Tablet , Notes to Pharmacist: Hydrochlorothiazide 25 MG / Lisinopril 20 MG Oral TabletIron 28 MG Tablet 1 tablet Orally Once a day Keto , Notes to Pharmacist: Weight loss pill once a dayOmeprazole 20 MG Capsule Delayed Release 1 capsule 30 minutes before morning meal Orally Once a day Potassium 99 MG Tablet 1 tablet Orally Once a day Medication List reviewed and reconciled with the patientNot-Taking 24 HR Naproxen 500 MG Extended Release Tablet , Notes to Pharmacist: 24 HR Naproxen 500 MG Extended Release TabletNot-Taking Constulose 10 GM/15ML Solution 15 mL as needed Orally Once a day Not-Taking Cyclobenzaprine HCl 10 MG Tablet 1 tablet at bedtime as needed Orally Once a day Not-Taking Finasteride 5 MG Tablet 1 tablet Orally Once a day Not-Taking Hydrochlorothiazide 25 MG / Lisinopril 20 MG Oral Tablet , Notes to Pharmacist: Hydrochlorothiazide 25 MG / Lisinopril 20 MG Oral TabletNot-Taking Iron 28 MG Tablet 1 tablet Orally Once a day Not-Taking Keto , Notes to Pharmacist: Weight loss pill once a dayNot-Taking Omeprazole 20 MG Capsule Delayed Release 1 capsule 30 minutes before morning meal Orally Once a day Not-Taking Potassium 99 MG Tablet 1 tablet Orally Once a day Medication List reviewed and reconciled with the patient * Allergies: T uberculin PPDyesAllergies Verified. Objective: * Vitals: H t: 72 in, Wt:239lbs, Wt-k.41 kg, BMI:32.41Index, Temp:98.27F, BP:131/83mm Hg, HR:94/min, Ht-cm: 182.88 cm. * P ast Orders: Lab:UA Without Micro-Auto, M achine - [id number] * Collection Date 01/16/2025 07/15/2024 04/13/2024 Order Date 01/16/2025 07/15/2024 04/13/2024 Glucose - - 0 Bili - - 0 Ketones +- - 0 Sp [place] 1.015 1.015 1.010 Blood - - +- pH 6.0 6.5 6.5 Protein +- - 0 Urobili - - 0 Nitrites - - 0 Leukocytes - - 0 * Procedure:PVR (Post Void Res idual) * Performed Date 01/16/2025 07/15/2024 04/13/2024 Order Date 01/16/2025 07/15/2024 04/13/2024 Result: 116mL Measurement 254 mL NR 134 mL * Examination: G eneral Examination: GENERAL APPEARANCE: a lert, in no distress. HEAD: n ormocephalic, atraumatic. LYMPH NODES: N o cervical lymphadenopathy. HEART: R egular rate and rhythm, S1 S2 normal. LUNGS: c lear to auscultation bilaterally, no wheezes, rales, or rhonchi. ABDOMEN: s oft, nontender, nondistended. RECTAL: D efers due to hemorrhoids at this time. MALE GENITOURINARY: P nina: Normal phallus. No lesions or masses Scrotum: Skin is normal. Testes: Descended bilaterally without masses. Epididymes: Normal bilaterally without masses, edema, or induration. EXTREMITIES: n o edema of bilateral lower extremities..? Assessment: * Assessment: 1. B enign prostatic hyperplasia with lower urinary tract symptoms - N40.1 (Primary) 2 . U rinary retention - R33.9 Plan: * Treatment: Value Reference Range G lucose - * B heath - * K etones +- * S p [place] 1.015 * B lood - * p H 6.0 * P rotein +- * U robili - * N itrites - * L eukocytes - ?Procedure: PVR (Post Void Residual) (Performed Date - 01/16/2025)* Value Reference Range M easurement 254 mL 2.?Others? Notes: Continue taking Finasteride 5 mg and Tamsulosin 0.4 mg daily for BPH Patient defers MARIAN due to bad hemorrhoids at the time? PVR most likely higher due to ascities Follow up in 6 months with ua and pvr?? * Procedure Codes: 3 079F DIAST BP 80-89 MM [id number] SYST BP GE 130 - 139MM [id number] US URINE CAPACITY MEASURE * Follow Up: 6 Months (Reason: see other) Billing Information: * Visit Code: 07359 Office Visit, Est Pt., Level 4. * Procedure Codes: 3079F DIAST BP 80-89 MM HG. 3075F SYST BP GE 130 - 139MM HG. 45959 US URINE CAPACITY MEASURE. * WORKER Sign off status: Completed true * Provider: GREG Huitron Date: 03/19/2024 Generated for Shira cartwright/Corazon/Ryan on: 03/26/2024 07:16 PM PASS WORKER
[2025-01-23 16:01] VITALS: BP 155/83; PULSE 94; RESP 18; TEMP 36.9; O2SAT 100
--- NOTE | 2025-01-23 16:17 | XRR_ITS ---
PROCEDURE INFORMATION: Exam: XR Chest Exam date and time: 01/23/2025 4:26 PM Age: 69 years old Clinical indication: Cough and shortness of breath; Additional info: SOB, cough TECHNIQUE: Imaging protocol: Radiologic exam of the chest. Views: 1 view. COMPARISON: CT chest eileen w/*[id number] 11/06/2024 9:50 PM FINDINGS: Lungs: Unremarkable. No consolidation. Pleural spaces: Unremarkable. No pleural effusion. No pneumothorax. Heart/Mediastinum: Unremarkable. No cardiomegaly. Bones/joints: Unremarkable. XR/XR chest 1V portable [id number] IMPRESSION: No acute findings.
--- NOTE | 2025-01-23 16:23 | ED_ITS ---
HPI - General Adult 2 General: Chief complaint: General Medical Stated complaint: retaining fluid Time Seen by Provider: 01/23/25 16:08 Source: patient Mode of arrival: ambulatory Limitations: no limitations History of Present Illness: Patient is a 69-year-old male with past medical history of liver cirrhosis and esophageal varices who presents emergency department complaining of peripheral edema that has been worsening over some time. [facility] Back in October I did personally see this patient transferred out due to the esophageal variceal bleeding and subsequently he had a clip placed. States that he has dealt with anemia periodically as well. He is currently on 20 mg furosemide as well as hydrochlorothiazide, he states that he has been swollen in his legs, abdomen, and feels like he is having increasing trouble breathing. Does not use supplemental O2 at home, and he is not endorsing any chest pain. He does note diffuse bodyaches, this has been worsening over some time as well. His blood pressure is slightly hypertensive, pulse rate within normal limits. He is afebrile he is not endorsing any fevers at home, nausea/vomiting, confusion or other altered mental status, or any other concerns at this time. MD complaint: peripheral edema, SOB Onset (ago): day(s) Associated symptoms: Reports dyspnea; Deny chest pain, headache(s), nausea, rash, palpitations or vomiting Related Data Home Medications ?Medication ?Instructions ?Recorded ?Confirmed acetaminophen 650 mg 1,300 mg PO Q12H 04/22/21 tablet,extended release (Tylenol Arthritis Pain) cholecalciferol (vitamin D3) 50 50 mcg PO DAILY 10/11/24 mcg (2,000 unit) capsule diphenhydramine HCl 25 mg capsule 25 mg PO TID PRN all ergies 04/22/21 10/11/24 (Allergy (diphenhydramine)) finasteride 5 mg tablet 5 mg PO DAILY 04/22/2110/11 lisinopril 20 1 tab PO DAILY 04/22/2104/05 mg-hydrochlorothiazide 25 mg tablet milk thistle 150 mg capsule 150 mg PO BID 04/22/2104/05 omeprazole 20 mg tablet,delayed 20 mg PO DAILY 10/11/24 release tamsulosin 0.4 mg capsule 0.4 mg PO DAILY 04/22/2104/05 sorbital laxative See Rx Instructions .Route . 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 #1 ea 06/30/24 (Dexcom G7 Hand I Tube Bender) insulin aspart U-100 100 unit/mL 2 unit (0.02 mL) SUBC UT .TIDAC 1 10/07/24 (3 mL) subcutaneous pen (Novolog month #15 mL FlexPen U-100 Insulin aspart) semaglutide 1 mg/dose (4 mg/3 mL) 1 mg (0.75 mL) SUBCU T Q7D #3 mL 10/11/24 subcutaneous pen injector (Ozempic) pen needle, diabetic 32 gauge x #100 ea 10/24/24 insulin glargine-yfgn 100 unit/mL See Rx Instructions .Route 01/02/25 (3 mL) subcutaneous pen .COMPLEX #90 mL Allergies Allergy/AdvReac Type Severity Reaction Status Date / Time tuberculin, purified protein Allergy Unknown Verified 07/11/24 15:27 deriva Review of Systems 2 General: Reports: 10 or more systems reviewed and unremarkable except in HPI and below Const: Reports: body aches; Denies: fever(s), chills or fatigue Eyes: Denies: change in vision ENMT: Denies: throat pain, ear or mastoid pain or nasal discharge Card: Reports: swelling of feet/ankles; Denies: chest pain, palpitations or lightheadedness Resp: Reports: dyspnea and non-productive cough; Denies: productive cough or wheezing GI: Reports: bloating; Denies: abdominal pain, nausea, vomiting, diarrhea or constipation : Denies: flank pain, difficulty urinating, dysuria or urinary frequency Musc: Denies: neck pain, back pain or joint pain Skin/Breast: Denies: rash Neuro: Denies: headache(s), numbness in extremities or weakness in extremities PFSH ED 2 PFSH: Social History Smoking and tobacco/nicotine status: never used tobacco/nicotine Alcohol intake: never Substance/Drug Use: never Physical Exam 2 Const: COMMON NORMALS: patient oriented x3 and no limitations GENERAL APPEARANCE: cooperative and well developed ORIENTATION/CONSCIOUSNESS: Yes awake, Yes oriented to person, Yes oriented to place and Yes oriented to time OTHER: Chronically ill-appearing, mild jaundice HENMT: COMMON NORMALS: normocephalic, atraumatic and hearing grossly normal bilaterally HEAD & SCALP: normocephalic and atraumatic Eye: OTHER: No scleral icterus Resp: COMMON NORMALS: normal respiratory effort, No retractions, No use of accessory muscles and clear to auscultation bilaterally AUSCULTATION: clear to auscultation bilaterally Cardio: COMMON NORMALS: regular rate, regular rhythm, No clicks present (Cardio), No murmurs present (Cardio) and No rub (Cardio) RATE: regular rate RHYTHM: regular rhythm GI: COMMON NORMALS: non-tender RECTAL EXAM: Yes deferred OTHER: Abdominal ascites noted Extremity: COMMON NORMALS: full ROM and capillary refill normal NARRATIVE EXTREMITY EXAM: 3+ pitting edema bilateral lower extremi ties up to the knees Neuro: COMMON NORMALS: patient oriented x3, moves all extremities, no focal motor deficits and no sensory deficits noted SENSORIUM/ORIENTATION: Yes oriented to person, Yes oriented to place and Yes oriented to time Skin: COMMON NORMALS: no rashes or lesions noted GENERAL SKIN EXAM: no rashes or lesions noted Course 2 Vital Signs: Vital signs: Vital Signs Temperature 98.4 F 01/23/25 16:01 Pulse Rate 89 01/23/25 17:07 Respiratory Rate 16 01/23/25 17:07 Blood Pressure 136/77 01/23/25 17:07 Pulse Oximetry 98 01/23/25 17:07 Oxygen Delivery Me thod Room Air 01/23/25 16:01 [facility] - General Adult Medical Decision Making Patient is a 69-year-old male with cirrhosis, history of esophageal varices (status post prior bleeding and endoscopic clipping), and chronic anemia, presenting with progressively worsening peripheral edema, ascites, and dyspnea on exertion. He is clinically stable, afebrile, normotensive aside from mild hypertension, with normal renal function, electrolytes, and coagulation studies. Hemoglobin is mildly low but stable, and there is no evidence of acute bleeding or infection. Troponin is negative. Meld?NA is 8, indicating preserved synthetic liver function. Given his stability and outpatient suitability, the plan is to increase furosemide from 20 mg p.o. daily to 40 mg p.o. daily to address volume overload. Spironolactone will not be initiated at this time, and he will continue his current hydrochlorothiazide and lisinopril. Patient will be instructed to monitor daily weights, observe for worsening edema, shortness of breath, hypotension, or other concerning symptoms, and will follow-up with primary care[facility]. BNP will likely be obtained with his next visit to monitor electrolytes and renal function, with adjustments to diuretics as clinically warranted. Overall the patient is stable for outpatient management with careful monitoring and close follow-up. Lab Data 01/23/25 16:27 01/23/25 16:27 Radiology Impressions Chest X-Ray 01/23/25 16:17 IMPRESSION: No acute findings. Laboratory Results WBC 4.03 10^3/uL (3.29-11.43) 01/23/25 16: RBC 4.08 10^6/uL (3.85-5.65) 01/23/25 16: Hgb 8.40 g/dL (11.27-16.99) L 01/23/25 16: Hct 28.8 % (37-53) L 01/23/25 16: MCV 70.6 fl (82-101) L 01/23/25 16: MCH 20.6 pg (27-33) L 01/23/25 16: MCHC 29.2 g/dL (30-55) L 01/23/25 16: RDW 19.7 % (12.1-15.1) H 01/23/25 16: Plt Count 100 10^3/cmm (157-399) L 01/23/25 16: MPV 10.3 fL (7.4-10.4) 01/23/25 16:27 Neut % (Auto) 64.6 % 01/23/25 16:27 Lymph % (Auto) 19.9 % 01/23/25 16:27 [place] % (Auto) 11.4 % 01/23/25 16:27 Eos % (Auto) 3.2 % 01/23/25 16:27 Baso % (Auto) 0.7 % 01/23/25 16:27 Neut # (Auto) 2.60 10^3/uL (1.8-7.7) 01/23/25 16:27 Lymph # (Auto) 0.8 10^3/uL (0.8-4.8) 01/23/25 16:27 [place] # (Auto) 0.5 10^3/uL (0.2-0.9) 01/23/25 16: Eos # (Auto) 0.1 10^3/uL (0.0-0.8) 01/23/25 16: Baso # (Auto) 0.0 10^3/uL (0.0-0.1) 01/23/25 16: Nucleated RBC % (auto) 0 % 01/23/25 16: Nucleated RBCs # 0.0 /100WBC 01/23/25 16: PT 15.70 SECONDS (12.1-14.9) H 01/23/25 16: INR 1.17 (0.8-1.2) 01/23/25 16: APTT 34.6 SECONDS (23.9-36.7) 01/23/25 16:27 Sodium 139 mmol/L (136-145) 01/23/25 16: Potassium 4.0 mmol/L (3.5-5.1) 01/23/25 16: Chloride 104 mmol/L (98-107) 01/23/25 16: Carbon Dioxide 22 mmol/L (22-29) 01/23/25 16: Anion Gap 17.0 (5-19) 01/23/25 16:27 BUN 15 mg/dL (8-23) 01/23/25 16:27 Creatinine 0.7 mg/dL (0.7-1.2) 01/23/25 16:27 GFR Calculation 111.8 mL/min (90-130) 01/23/25 16:27 Glucose 103 mg/dL (65-115) 01/23/25 16:27 Calculated Osmolality 289 mOsm/kg (285-295) 01/23/25 16:27 Calcium 8.7 mg/dL (8.5-10.5) 01/23/25 16:27 Magnesium 1.7 mg/dL (1.7-2.3) 01/23/25 16:27 Total Bilirubin 0.9 mg/dL (0.15-1.2) 01/23/25 16:27 AST 39 U/L (0-40) 01/23/25 16:27 ALT 18 U/L (0-41) 01/23/25 16:27 Alkaline Phosphatase 127 U/L (40-130) 01/23/25 16:27 Troponin T Baseline 15 ng/L (0-15) 01/23/25 16:27 NT-Pro-B Natriuret Pep 69 pg/mL (0-125) 01/23/25 16:27 Total Protein 5.9 g/dL (6.6-8.7) L 01/23/25 16:27 Albumin 3.7 g/dL (3.5-5.2) 01/23/25 16:27 Globulin 2.2 g/dL (1.3-4.6) 01/23/25 16:27 All radiology interpretation(s) finalized by discharge Discharge Plan Discharge Patient Disposition: Home Clinical Impression: Cirrhosis Qualifiers: Hepatic cirrhosis type: unspecified hepatic cirrhosis Ascites presence: with ascites Qualified Code(s): K74.60 - Unspecified cirrhosis of liver Condition: Stable Prescriptions: No Action lisinopril-hydrochlorothiazide 20-25 mg tablet 1 tab PO DAILY omeprazole 20 mg tablet,delayed release (DR/EC) 20 mg PO DAILY finasteride 5 mg tablet 5 mg PO DAILY tamsulosin 0.4 mg capsule 0.4 mg PO DAILY cholecalciferol (vitamin D3) 50 mcg (2,000 unit) capsule 50 mcg PO DAILY milk thistle 150 mg capsule 150 mg PO BID Rx Instructions: give with meal/snack acetaminophen [Tylenol Arthritis Pain] 650 mg tablet extended release 1,300 mg PO Q12H diphenhydramine HCl [Allergy (diphenhydramine)] 25 mg capsule 25 mg PO TID PRN (Reason: allergies) Ozempic 1 mg/dose (4 mg/3 mL) pen injector 1 mg SUBCUT Q7D Qty: 3 4RF Rx Instructions: 1mg weekly sorbital laxative See Rx Instructions .ROUTE .COMPLEX Rx Instructions: as directed cyclobenzaprine 10 mg tablet 10 mg PO ONCE (DME) Dexcom G7 Hand I Tube Bender Misc See Rx Instructions .Route Qty: 1 0RF Rx Instructions: As directed (DME) Dexcom G7 Sensor Device See Rx Instructions .Route Qty: 3 3RF Rx Instructions: change every 10 days insulin aspart U-100 [Novolog FlexPen U-100 Insulin] 100 unit/mL (3 mL) insulin pen 2 unit SUBCUT .TIDAC 30 Days Qty: 15 3RF (DME) pen needle, diabetic 32 gauge x 5/32 needle See Rx Instructions .ROUTE .COMPLEX Qty: 100 1RF Dose Instruction: USE 1 NEEDLE UNDER THE SKIN DIRECTED Rx Instructions: USE 1 NEEDLE UNDER THE SKIN DIRECTED insulin glargine-yfgn 100 unit/mL (3 mL) insulin pen See Rx Instructions .ROUTE .COMPLEX Qty: 90 0RF Dose Instruction: INJECT 10 UNITS UNDER THE SKIN ONCE A DAY . ADMINISTER AT SAME TIME EACH DAY DIRECTED. DISCARD ANY OPEN CARTRIDGE AFTER 28 DAYS. Rx Instructions: INJECT 10 UNITS UNDER THE SKIN ONCE A DAY . ADMINISTER AT SAME TIME EACH DAY DIRECTED. DISCARD ANY OPEN CARTRIDGE AFTER 28 DAYS. naproxen [Naprosyn] 500 mg tablet 500 mg PO BID PRN (Reason: pain) Qty: 20 0RF aspirin [Max Low Dose Aspirin] 81 mg Tablet,Delayed Release (Dr/Ec) 81 mg PO DAILY vitamin B complex [B Complex] Capsule 1 cap PO DAILY Discharge Orders: Discharge ED (Routine); Ordered 01/23/25 Ordered By: Rodrigo Dallas Referrals: Karyn Henson MD [Primary Care Provider, Family Practice] Patient Instructions: Patient Portal & Tricia Instructions Activity Restrictions/Additional Instructions: Discharge Instructions Your Diagnosis You were seen in the emergency department for cirrhosis (scarring of the liver) with ascites (fluid buildup in your belly). The tests we did showed that your heart, kidneys, and blood counts are stable. We are making changes to your water pills to help control the fluid buildup. Medication Changes - Furosemide (Lasix): Your dose is being increased from 20 mg to 40 mg once daily. Take this medication in the morning. - Hydrochlorothiazide: Continue taking as prescribed. - Lisinopril: Continue taking as prescribed. Important Instructions Salt Restriction - Limit your salt intake to less than 2,000 mg (2 grams) per day. This is very important to help control fluid buildup. - Avoid adding salt to your food - Stay away from processed and canned foods, which are high in salt - Read nutrition labels carefully - Consider meeting with a dietitian to help plan low-salt meals that still provide enough calories and protein Daily Weight Monitoring - Weigh yourself every day at the same time, preferably in the morning after using the bathroom - Keep a written record of your weight - If you do NOT have swelling in your legs, you should lose no more than 1 pound per day - If you DO have swelling in your legs, you can safely lose up to 2 pounds per day - Losing weight too quickly can harm your kidneys Fluid Intake - You do NOT need to restrict how much you drink unless your doctor tells you otherwise Warning Signs - Call Your Doctor or Go to the ER If You Experience: - Fever (temperature above 100.4?F) - Worsening belly pain or swelling - Confusion or difficulty thinking clearly - Vomiting blood or black, tarry stools - Yellowing of your skin or eyes - Decreased urination or dark urine - Dizziness or feeling faint - Muscle cramps that are severe or don't go away Follow-Up Care - You have an appointment at the [facility] clinic later this week - At this visit, your doctor will check your weight, kidney function, and electrolytes (salt levels in your blood) - Do NOT miss this appointment - it is very important for monitoring your condition - Bring your weight log to your appointment Additional Information - Your condition requires ongoing monitoring and treatment - If you develop muscle cramps from the water pills, let your doctor know - there are treatments that can help - Liver transplant evaluation may be considered as part of your long-term care Questions? If you have any questions or concerns before your follow-up appointment, please contact the [facility]. Print Language: Sami Coding Level of Care Code ED [employer] Officer for Lokesh Meyer
[2025-01-23 16:46] LABS: Hematocrit 28.8 % (37-53); Hemoglobin 8.40 g/dL (11.27-16.99); Mean Corpuscular HGB Conc 29.2 g/dL (30-55); Mean Corpuscular Hemoglobin 20.6 pg (27-33); Mean Corpuscular Volume 70.6 fl (82-101); Nucleated Red Blood Cells % 0 %; Platelet Count 100 10^3/cmm (157-399); Red Blood Count 4.08 10^6/uL (3.85-5.65); White Blood Count 4.03 10^3/uL (3.29-11.43)
[2025-01-23 16:54] LABS: INR 1.17 (0.8-1.2); Prothrombin Time 15.70 SECONDS (12.1-14.9)
[2025-01-23 16:55] LABS: Partial Thromboplastin Time 34.6 SECONDS (23.9-36.7)
[2025-01-23 16:58] LABS: Slide Review Slide Review Perform
[2025-01-23 17:07] VITALS: BP 136/77; PULSE 89; RESP 16; O2SAT 98
[2025-01-23 17:15] LABS: Troponin(5th) Baseline 15 ng/L (0-15)
--- NOTE | 2025-01-23 17:17 | ECG_ITS ---
[facility] Pat Name: Renny Holm Department: Room: Gender: Male Chief Controller Center: : [id number] Requested By: Rodrigo Whittaker Order Number: [id number] Anju MD: Onesimo Mcconnell M.D. 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 [email or web address]
[2025-01-23] MEDS: morphine 4 mg/mL SDV 1 mL IVP (17:18)
[2025-01-23] MEDS: ondansetron 2 mg/ML SDV 2 mL 4 MG IVP (17:18)
[2025-01-23 17:25] LABS: Alanine Aminotransferase 18 U/L (0-41); Albumin Level 3.7 g/dL (3.5-5.2); Alkaline Phosphatase 127 U/L (40-130); Anion Gap 17.0 (5-19); Aspartate Amino Transferase 39 U/L (0-40); Blood Urea Nitrogen 15 mg/dL (8-23); Calcium 8.7 mg/dL (8.5-10.5); Carbon Dioxide 22 mmol/L (22-29); Chloride 104 mmol/L (98-107); Creatinine Clr Calc Pharmacy 109.3656; Globulin 2.2 g/dL (1.3-4.6); Glucose 103 mg/dL (65-115); Magnesium 1.7 mg/dL (1.7-2.3); NT Pro B Type Natriuretic Pept 69 pg/mL (0-125); Osmolality Calculated 289 mOsm/kg (285-295); Potassium 4.0 mmol/L (3.5-5.1); Sodium 139 mmol/L (136-145); Total Protein 5.9 g/dL (6.6-8.7)
[2025-01-23] MEDS: FUROsemide 10 mg/mL SDV 10mL 60 MG IVP (17:43)
[2025-01-23 18:07] VITALS: BP 162/101; PULSE 88; RESP 16; O2SAT 99
--- OUTSIDE RECORDS SUMMARY | 2025-01-23 19:16 | XMS_ITS | Patient Health Record ---
Author Organization [facility] Address [address] [place] [address] Care Team Providers Care Receiving Weigher Name Role Phone [facility] HO[facility] DO Primary Care Provider Un available Catalino Mckeonin Unavailable [phone] [place] Unavailable Unavailable Amanuel Hill Unavailable [phone] Marianna Maurer Unavailable Allergies Allergen (clinical drug ingredient) Drug/Non Drug Allergy documented on EMR Reaction Allergy Type Onset Date Status Tuberculin PPD Unknown Drug Allergy Ac tive Results Component Value Reference Range Flag Notes UA Without Micro-Auto, [place] - [id number] Reviewed date:04/13/2024 01:37:04 PM Interpretation: Performing Lab: Notes/Report: Glucose 0 Bili 0 Ketones 0 Sp Gentry 1.010 Blood +- pH 6.5 Protein 0 Urobili 0 Nitrites 0 Leukocytes 0 UA Without Micro-Auto, [place] - [id number] Reviewed date:07/15/2024 10:39:00 AM Interpretation: Performing Lab: Notes/Report: Glucose - Bili - Ketones - Sp Gentry 1.015 Blood - pH 6.5 Protein - Urobili - Nitrites - Leukocytes - Immature PLT Fraction [id number] Reviewed date:05/18/2024 10:44:16 AM Interpretation: Performing Lab: Notes/Report: Immature PLT Fraction 7.2 1.6-7.1 % HI Platelet 59 150-400 X10'3 LOW Hepatic Function Panel [id number] Reviewed date:05/19/2024 03:12:28 PM Interpretation: Performing Lab: [...] 54 12-78 UNIT/L CBC w\ Auto Diff [id number] Reviewed date:05/19/2024 03:12:28 PM Interpretation: Performing Lab: [...] % Lymph Auto% 20.3 22.0-44.0 % LOW [place] Auto% 8.4 3.0-7.0 % HI Eos Auto% 3.8 2.0-4.0 % Baso Auto% 0.5 0.0-1.0 % Imm Gran% .5 .0-.4 % HI Neutro Abs 2.46 .80-7.70 Absolute Neutrophil Count 2460 NA Lymph Abs .75 .10-4.10 Breath[place] Abs .31 .20-1.00 Eos Abs .14 .00-.40 Baso Abs .02 .00-.20 Imm Gran Abs .02 .00-.10 NRBC# .00 .00-.20 NRBC% .00 .00-.20 /100 int act WBC's Basic Metabolic Panel (BMP) 78956 Reviewed date:05/19/2024 03:12:28 PM Interpretation: Performing Lab: Notes/Report: Diagnosis Description: Unspecified cirrhosis of liver Diagnosis Description: Fatty (change of) liver, not elsewhere classified Diagnosis Description: Abnormal levels of other serum enzymes Sodium 137 136-145 MMOL/L Potassium 3.9 3.5-5.1 MMOL/L Chloride 102 98-107 MMOL/L CO2 27.6 20.0-31.0 MMOL/L Glucose Serum 253 71-110 MG/DL HI Testing p erformed at [facility], [address] [place] [address] [place] [address]. CLIA ID#: [id number] BUN 11 7-21 MG/DL Creat .77 .57-1.17 MG/DL Y-mksqgm-r-benzoquinone imine (NAPQI) is a metabolite of acetaminophen, [...] 280-300 MOSM/[place] [address] Reviewed date:05/19/2024 03:12:28 PM Interpretation: Performing Lab: Notes/Report: Diagnosis Description: Unspecified cirrhosis of liver Diagnosis Description: Fatty (change of) liver, not elsewhere classified Diagnosis Description: Abnormal levels of other serum enzymes Alpha Feto Prot 6.6 2.2-8.1 ng/mL Perfor med on Siemens Atellica Solution IM Prothrombin Time [id number] Reviewed date:05/19/2024 03:12:28 PM Interpretation: Performing Lab: Notes/Report: Diagnosis Description: Unspecified cirrhosis of liver Diagnosis Description: Fatty (change of) liver, not elsewhere classified Diagnosis Description: Abnormal levels of other serum enzymes ProTime 11.5 9.1-11.9 SEC Normal Range : 9.1-11.9 INR 1.09 .90-1.20 Therapaeutic Range for heart valve replacement: 2.5-3.50 Therapeutic Range: 2.0-3.0 UA Without Micro-Auto, [place] - [id number] Reviewed date:01/16/2025 10:00:18 AM Interpretation: Performing Lab: Notes/Report: Glucose - Bili - Ketones +- Sp Gentry 1.015 Blood - pH 6.0 Protein +- Urobili - Nitrites - Leukocytes - Reason For Referral Reason Retention of urine Diagnosis 1 Retention of urine, unspecified (R33.9) Referring Provider First Name Saima Luongu ff Referring Provider Last Name MS Referring Provider [facility] Referred Organization [facility] Referred Provider Amanuel Hill Referred Address [address], [place],[address], Referred Provider Specialty Urology Referral Priority Routine Reason 1yr F/U-CHAUDHARI Diagnosis 1 CHAUDHARI (nonalcoholic s teatohepatitis) (K75.81) Referring Provider First Name Saima Cm ff Referring Provider Last Name MS Referring Provider [facility] Referred Organization [facility] Referred Provider Samantha Mckeon [place] Address [address] [place], [place],[address],[place] Referral Priority Routine Reason BPH with luts Diagnosis 1 Benign localized pro static hyperplasia with lower urinary tract symptoms (LUTS) (N40.1) Referring Provider First Name Saima Cm ff Referring Provider Last Name MS Referring Provider [facility] Referred Organization [facility] Referred Provider Amanuel Hill Referred Address [address], [place],[address],[place] Referred Provider Specialty Urology Referral Priority Routine Medications Medication SIG (Take, Route, Frequency, Duration) Notes Start Date End Date Status Tamsulosin HCl 0.4 MG Capsule 1 capsule Orally Once a day; Duration: 07/16/19 Active Cyclobenzaprine HCl 10 MG Tablet 1 tablet at bedtime as needed Orally Once a day Not-Stevenin g Finasteride 5 MG Tablet 1 tablet Orally Once a day; Duration: 07/16/19 Active Vitamin D3 25 MCG (1000 UT) Capsule 1 capsule Orally Once a day Active Mariluz crystalized root to help with stomach Active 24 HR Naproxen 500 MG Extended Release Tablet 24 HR Naproxen 500 MG Extended Release Tablet 11/12/19 Not-Takin g Lantus SoloStar 100 UNIT/ML Solution Pen-injector as directed Subcutaneous daily Active Constulose 10 GM/15ML Solution 15 mL as needed Orally Once a day Not-Takin g Lisinopril-hydroCHLOROt hiazide 20-25 MG Tablet 1 tablet Orally Once a day Active Finasteride 5 MG Tablet 1 tablet Orally Once a day Not-Takin g Metoprolol Succinate ER 25 MG Tablet Extended Release 24 Hour 1/2 tablet Orally Once a day Active Tamsulosin HCl 0.4 MG Capsule 1 capsule Orally Once a day; Duration: 01/17/20 Active Hydrochlorothiazide 25 MG / Lisinopril 20 MG Oral Tablet Hydrochlorothiazide 25 MG / Lisinopril 20 MG Oral Tablet 11/12/19 Not-Takin g Milk Thistle 500 MG Capsule as directed Orally once a day Active Iron 28 MG Tablet 1 tablet Orally Once a day Not-Takin g Multivitamin - Tablet 1 tablet Orally Once a day Active Keto Weight loss pill once a day Not-Takin g Naproxen 500 MG Tablet 1 tablet with food or milk as needed Orally every 12 hrs Active Omeprazole 20 MG Capsule Delayed Release 1 capsule 30 minutes before morning meal Orally Once a day Not-Takin g NovoLOG 100 UNIT/ML Solution as directed Injection daily Active Potassium 99 MG Tablet 1 tablet Orally Once a day Not-Takin g Aspirin 81 MG Tablet Delayed Release 1 tablet Orally Once a day Active Ozempic (1 MG/DOSE) 4 MG/3ML Solution Pen-injector as directed Subcutaneous once a week Has cut dose in half per PCP Active Finasteride 5 MG Tablet 1 tablet Orally Once a day; Duration: 90 days 12/08/20 25 Active Immunizations Vaccine Route Administration Date Status Comme [...] Problem Type II diabetes mellitus without complication (767156433) Type 2 diabetes mellitus without complications (E11.9) Active confirmed Problem Oesophageal varices without bleeding (20390497) Secondary esophageal varices without bleeding (I85.10) Active confirmed Problem Worthy's esophagus (891206608) 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 Problem disorder of stomach (97898408) Other diseases of stomach and duodenum (K31.89) Active confirmed Problem Cirrhosis of liver (86438621) Unspecified cirrhosis of liver (K74.60) Active confirmed Problem CHAUDHARI - Nonalcoholic steatohepatitis (122229831) Nonalcoholic steatohepatitis (CHAUDHARI) (K75.81) Active confirmed Problem Portal hypertension (79479179) Portal hypertension (K76.6) Active confirmed Problem Frequency of micturition (922923554) Frequency of micturition (R35.0) Active confirmed Problem Benign prostatic hypertrophy without outflow obstruction (288314900) Benign prostatic hyperplasia without lower urinary tract symptoms (N40.0) Active confirmed Problem Lower urinary tract symptoms due to benign prostatic hypertrophy (79862146160961) Benign prostatic hyperplasia with lower urinary tract symptoms (N40.1) Active confirmed Problem Essential hypertension (69953607) Essential hypertension (I10) Active confirmed Problem Screening for malignant neoplasm of colon (977413758) Screening for malignant neoplasm of colon (Z12.11) Active confirmed Problem Urinary retention (394498947) Urinary retention (R33.9) Active confirmed Problem Obstructive sleep apnea (36349187) Obstructive sleep apnea (G47.33) Active confirmed Problem Lumbar spondylosis (633070347) Lumbar spondylosis (M47.816) Active confirmed Problem Esophageal varices without bleeding (57844115) Esophageal varices determined by endoscopy (I85.00) Active confirmed Problem Obstructive sleep apnea syndrome (91439648) AUGUST (obstructive sleep apnea) (G47.33) Active confirmed Problem Gastroesophageal reflux disease (680489157) Gastroesophageal reflux disease, esophagitis presence not specified (K21.9) Active confirmed Problem CHAUDHARI - Nonalcoholic steatohepatitis (361754415) CHAUDHARI (nonalcoholic steatohepatitis) (K75.81) Active confirmed Problem Obese class I (finding) (306087978837632) Obesity (BMI 30.0-34.9) (E66.9) Active confirmed Problem Primary osteoarthritis (869212545) Primary osteoarthritis involving multiple joints (M15.0) Active confirmed Problem Esophageal varices without bleeding (83217200) Esophageal varices without bleeding, unspecified esophageal varices type (I85.00) Active confirmed Problem Lower urinary tract symptoms due to benign prostatic hypertrophy (37898411238853) Benign localized prostatic hyperplasia with lower urinary tract symptoms (LUTS) (N40.1) Active confirmed Problem Gastroesophageal reflux disease (335390039) Gastroesophageal reflux disease, unspecified whether esophagitis present (K21.9) Active confirmed Problem Fatty liver (641958778) 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) Active confirmed Vital Signs Heart Rate 94 /min 01/16/2025 Temperature 98.27 degrees Fahrenheit 01/16/2025 Respiratory Rate 20 /min 05/11/2024 Oximetry 96 % 05/11/2024 Blood pressure diastolic 83 mm Hg 01/16/2025 Height-cm 182.88 cm 01/16/2025 Weight-kg 108.41 kg 01/16/2025 Height 72 in 01/16/2025 Blood pressure systolic 131 mm Hg 01/16/2025 Weight 239 lbs 01/16/2025 BMI 32.41 kg/m2 01/16/2025 Procedures Procedure Date Ordered Date Performed Result Body Sit e PVR (Post Void Residual) 04/13/2024 04/13/2024 N/A PVR (Post Void Residual) 07/15/2024 07/15/2024 116mL PVR (Post Void Residual) 01/16/2025 01/16/2025 N/A Encounters Encounter Location Date Provider Diagnosis [facility] [address] [place] [address] Dr [address] [place] [address], [place] [address] 04/13/2024 Marianna Maurer Benign prostatic hyperplasia with lower urinary tract symptoms N40.1 and Urinary retention R33.9 [facility] [address] [place] [address] [place] [address] 05/11/2024 Abodunrin Mike Unspecified cirrhosis of liver K74.60 ; Metabolic [...] complications E11.9 and Urinary retention R33.9 [facility] [address] [place] [address] [place] [address] 07/15/2024 Marianna Maurer Benign prostatic hyperplasia with lower urinary tract symptoms N40.1 ; Urinary retention R33.9 and Frequency of micturition R35.0 [facility] [address] [place] [address] 01/16/2025 Marianna Maurer Benign prostatic hyperplasia with lower urinary tract symptoms N40.1 and Urinary retention R33.9 [facility] [address] [place] [address] 03/21/2024 Amanuel Hill [facility] [address] [place] [address] 04/12/2024 Amanuel [facility] [address] [place] [address] 05/10/2024 Abodunrin Mike Unspecified cirrhosis of liver K74.60 ; Fatty liver K76.0 and Elevated liver enzymes R74.8 [facility] [address] [place] [address] [place] [address] 07/14/2024 Amanuel Rosasay [facility] [address] [place] [address] 07/15/2024 Amanuel Hill Encounter for screening for malignant neoplasm of prostate Z12.5 [facility] [address] [place] [address] 11/28/2024 [facility] [address] [place] [address] [facility] [address] [place] [address] 12/16/2024 Amanuel Hill [facility] [address] [place] [address] 01/09/2025 Amanuel Hill Encounter for screening for malignant neoplasm of prostate Z12.5 [facility] [address] [place] [address] 01/11/2025 Marianna Maurer Assessments Encounter Date Diagnosis (ICD Code) Assessment Notes Treatment Notes Treatment Clinical Notes Section Notes 05/11/2024 Unspecified cirrhosis of liver (ICD-10 - K74.60) 05/11/2024 Metabolic dysfunction-associat ed steatotic liver disease (MASLD) (ICD-10 - K76.0) 07/15/2024 Encounter for screening for malignant neoplasm of prostate (ICD-10 - Z12.5) 01/09/2025 Encounter for screening for malignant neoplasm of prostate (ICD-10 - Z12.5) 01/16/2025 Benign prostatic hyperplasia with lower urinary tract symptoms (ICD-10 - N40.1) 01/16/2025 Urinary retention (ICD-10 - R33.9) 07/15/2024 Benign prostatic hyperplasia with lower urinary tract symptoms (ICD-10 - N40.1) PLAN - CONTINUE TO TAKE MEDICATION PRESCRIBED. 07/15/2024 Urinary retention (ICD-10 - R33.9) Patient may come to the clinic for nurse visit if he feels they feel they are not emptying and need to have their bladder checked 05/10/2024 Unspecified cirrhosis of liver (ICD-10 - K74.60) 04/13/2024 Benign prostatic hyperplasia with lower urinary tract symptoms (ICD-10 - N40.1) PLAN - PATIENT WILL start taking tamsulosin as prescribed at bedtime for 3 months, will follow up with UA and PVR 04/13/2024 Urinary retention (ICD-10 - R33.9) PLAN - PATIENT WILL CONTINUE start taking tamsulosin as prescribed at bedtime for 3 months, will follow up with UA and PVR 05/10/2024 Fatty liver (ICD-10 - K76.0) 07/15/2024 Frequency of micturition (ICD-10 - R35.0) [...] 6 MONTHS WITH PSA, UA, PVR, MARIAN 01/16/2025 Other Continue taking Finasteride 5 mg and Tamsulosin 0.4 mg daily for BPH Patient defers MARIAN due to bad hemorrhoids at the time PVR most likely higher due to ascities Follow up in 6 months with ua and pvr Plan Of Treatment Pending Test Test Name Order Date PSA Diagnostic--[id number] 07/15/2024 Future Test Test Name Order Date EGD, Upper GI Diagnostic-82795 PSA Diagnostic--[id number] 01/09/2025 Prothrombin Time 45213 05/11/2025 Alpha Fetoprotein Tumor Marker 39981 03/2025 Basic Metabolic Panel (BMP) 09435 2025 CBC w\ Auto Diff 48366 05/11/2025 Hepatic Function Panel 72166 05/11/2025 Next Appt Details Provider Name:Samantha hatch, 02/13/2025 03:30:00 PM, [address], [place], [address], Provider Name:Samantha hatch, 05/17/2025 09:00:00 AM, [address], [place], [address], Provider Name:Marianna Gibbs, 07/18/2025 10:20:00 AM, [address], [place], [address], Insurance Providers Payer Name Payer Address Payer Phone Subscriber Number Group Number Insured Name Patient Relationship to Insured Coverage Start Date Coverage End Date [employer] [address] [place] [phone] [id number] Renny Holm Self - patient is the insured [facility] [address] [place] [address] [id number] Gastro Amended [employer] Renny Holm Self - patient is the insured 0 1 Medical (General) History Medical History History ICD Code Anxiety Disorder of liver Heart disease Kidney stone Osteoporosis Sleep apnea Steatosis of liver Arthritis Heart disease BPH (benign prostatic hyperplasia) N40.0 type II diabetes hx inguinal hernia bleeding ulcer Surgical History Surgery Date(Month/Year) bilateral inguinal hernia repair left shoulder arthroplasty bilateral hip replacement 07/2020 Colonoscopy-diverticulosis left colon, i nternal hemorrhoids 04-28-2019 EGD-portal hypertensive alfonzo ropathy, non-bleeding diverticulum, scars mid esophagus-distal esophagus 04-28-2019 Hospitalization History Reason Date(Month/Year) [facility] in February ER for back.
--- OUTSIDE RECORDS SUMMARY | 2025-01-23 19:17 | XMS_ITS | Clinical Summary ---
Author Organization [facility] Address [address] [place] [address] Phone Care Team Providers Care Yard Caller Name Role Phone Unavailable Primary Care Provider Unavailabl e Allergies Active Allergy Reactions Criticality Noted Date Comments Sweet Potato Nausea and Vomiting Low 11/07/2024 Tuberculin, Old Skin Test Other (See Comments) 11/07/2024 False positive reaction on the test, patient was in [place] [employer] [place] back then Medications pantoprazole (PROTONIX) 40 [...] Encounters Date Type Department Care Team Description External Device Data STL ABSTRACTION Provider, Abstract External Device Data STL ABSTRACTION Provider, Abstract 5 External Device Data ST[place] ABSTRACTION Provider, Abstract External Device Data STL ABSTRACTION Provider, Abstract 5 External Device Data STL ABSTRACTION Provider, Abstract 10/07/202 5 Orders Only [facility] [address] [place] [phone] Provider, Abstract 5 Abstract [facility] [address] [place] [phone] Provider, Abstract 5 Results Follow-Up [facility] Gastroenterology - [place] [address] [place] [phone] Leena Burk, [facility] PATHOLOGY 5 2:35 PM CDT - 5 2:55 PM CDT Surgery [facility] Endoscopy [address] [place] [phone] Steve Crouch MD COLONOSCOPY 5 2:28 PM CDT Anesthesia Event [facility] [address] [place] [phone] Devin Hussein MD Johnsen, James, CRNA 5 2:29 PM CDT Anesthesia Event [facility] [address] [place] [phone] James Michael III, MD Bandalan, Harold Richie, NICOLE 5 1:30 PM CDT - 5 1:50 PM CDT Surgery [facility] [address] [place] [phone] Steve Crouch MD ESOPHAGOGASTRODUODENOSCOPY 5 External Device Data STL ABSTRACTION Provider, Abstract 5 External Device Data STL ABSTRACTION Provider, Abstract 5 External Device Data STL ABSTRACTION Provider, Abstract 5 1:05 PM CDT Anesthesia Event [facility] [address] [place] [phone] Misael Nolen MD 5 10:22 AM CDT - 5 10:42 AM CDT Surgery [facility] [address] [place] [address] Steve Crouch MD ESOPHAGOGASTRODUODENOSCOPY 5 5:42 AM CDT - 5 3:33 PM CDT Hospital Encounter [facility] 3B Surgical [address] [place] [address] Raulito Francis MD Raavi, MD Ashley Olea, MD Donta Bass, Cuong Enriquez MD Hematemesis with nausea Discharge [...] worry about transportation for future doctor visits, rock picker medication, etc.? No 2024 Housing Stability [...] Flex Sig/CT Colonography Q 5 years 02/09/2000 RSV VACCINE (60+ or ) (1 - Risk 50-74 years 1-dose series) 2005 DIABETES ANNUAL RETINAL EXAM 09/22/2007 09/21/2006 INFLUENZA VACCINE (#1) 2024 , 12/03/2018, 11/09/2018, Additional history exists DIABETES HBA1C Q 6 MONTHS 05/07/2025 11/07/2024 DTAP/TDAP/TD VACCINES (3 - T d or Tdap) 09/22/2032 09/22/2022, 02/11/2013, 02/09/1999 COLORECTAL SCREENING 11/09/2034 11/09/2024, 11/10/19 Colorectal Cancer Screening 11/09/2034 ZOSTER VACCINE Completed 12/12/2020, 08/14/2020 PNEUMOCOCCAL VACCINE 50+ YEARS Completed 0 03/27/2022, 08/14/2020, 11/09/2017, Additional history exists Medical Devices Implanted Type Area Lpn Cma Device Identifier Shelf Expiration Date Model / Serial / Lot Clip Endo Resolution 360 235cm [id number] - [id number] Implanted:Qty: 1 on 11/08/2024 by Steve Crouch MD at [facility] Clip N/A: Stomach [employer] [id number] 07/27/2027 [id number] / / [id number] Procedures Procedure Name Priority Date/Time Associated Diagnosis [...] CDT PREPARE RED BLOOD CELLS Routine 11/09/19 25 11:50 AM CDT HEMOGLOBIN AND HEMATOCRIT Stat 2024 11:14 AM CDT POC GLUCOSE Routine 11/08/2024 8:14 AM CDT US ABDOMEN LIMITED Routine 11/08/2024 8:01 AM CDT COMPREHENSIVE METABOLIC PANEL Routine 2:02 AM CDT PROTIME-INR Routine 11/08/2024 2:02 AM CDT CBC WITHOUT DIFFERENTIAL Routine 025 2:02 AM CDT HEMOGLOBIN AND HEMATOCRIT Routine [...] * TELEMETRY REPORT (11/14/2024 3:17 AM CDT) Provider Scanning ECG ORDERABLES Final Result * (ABNORMAL) POC GLUCOSE (11/11/2024 12:13 PM CDT) Only the most recent of16 resultswithin the time period is included. GLUCOSE POC 112(H) 74 - 99 mg/dL 11/11/2024 12:13 PM CDT [facility] SPECIMEN SOURCE, GLUCOSE POC Capillary 11/11/2024 12:13 PM CDT [facility] Blood, whole 11/11/2024 12:1 3 PM CDT 11/11/2024 12:30 PM CDT Cuong Longo MD POINT OF CARE TESTING Fin al Result Performing Organization Address [facility] Co de Phone Number [facility] CLIA # [id number] [address] [address] * (ABNORMAL) HEMOGLOBIN AND HEMATOCRIT (11/10/2024 4:17 PM CDT) Only the most recent of5 resultswithin the time period is included. HEMOGLOBIN 7.8(L) 14.0 - 18.0 g/dL 11/10/2024 5:06 PM CDT [facility] HEMATOCRIT 23.9(L) 41.0 - 53.0 % 11/10/2024 5:06 PM CDT [facility] Blood Venipuncture / Unknown 11/10/2024 4:17 PM CDT 11/10/2024 4:54 PM CDT Cuong Longo MD HEMATOLOGY ORDERABLES Fin al Result Performing Organization Address City/[facility]/ZIP Co de Phone Number [facility] CLIA # [id number] [address] [address] [place] [address] * (ABNORMAL) CBC WITH DIFFERENTIAL (11/10/2024 6:05 AM CDT) Only the most recent of3 resultswithin the time period is included. [facility] WBC 3.3(L) 4.8 - 10.8 K/uL 11/10/2024 7:17 AM CDT [facility] RBC 2.65(L) 4.60 - 6.20 M/uL 11/10/2024 7:17 AM T [facility] HEMOGLOBIN 7.3(L) 14.0 - 18.0 g/dL 11/10/2024 7:17 AM [facility] HEMATOCRIT 22.6(L) 41.0 - 53.0 % 11/10/2024 7:17 AM T [facility] MCV 85.3 84.0 - 103.0 fL 11/10/2024 7:17 AM T [facility] MCH 27.5 27.0 - 34.0 pg 11/10/2024 7:17 AM [facility] MCHC 32.3 30.0 - 35.0 g/dL 11/10/2024 7:[facility] PLATELETS 59(L) 140 - 440 K/uL 11/10/2024 7:17 AM [facility] MPV 11.6 8.9 - 12.8 fL 11/10/2024 7:17 AM [facility] RDW 16.6(H) 11.0 - 14.5 % 11/10/2024 7:17 AM [facility] RDW-STDEV 50.9 37.0 - 54.0 fL 11/10/2024 7:17 [facility] NEUTROPHILS 59 42 - 75 % 11/10/2024 7:17 AM T [facility] LYMPHOCYTES 25 24 - 44 % 11/10/2024 7:17 AM CDT [facility] MONOCYTES 11(H) 2 - 10 % 11/10/2024 7:17 AM CDT [facility] EOSINOPHILS 4 0 - 7 % 11/10/2024 7:17 AM CDT [facility] BASOPHILS 1 0 - 1 % 11/10/2024 7:17 AM CDT [facility] IMMATURE GRANULOCYTES 1 0 - 2 % 11/10/2024 7:17 AM CDT [facility] NEUTROPHIL ABSOLUTE 1.94(L) 2.00 - 8.00 K/uL 11/10/2024 7:17 AM CDT [facility] LYMPHOCYTE ABSOLUTE 0.82(L) 1.20 - 4.00 K/uL 11/10/2024 7:17 AM CDT [facility] MONOCYTE ABSOLUTE 0.38 0.10 - 0.60 K/uL 11/10/2024 7:17 AM CDT [facility] EOSINOPHIL ABSOLUTE 0.13 0.00 - 0.70 K/uL 11/10/2024 7:17 AM CDT [facility] BASOPHILS ABSOLUTE 0.02 0.00 - 0.20 K/uL 11/10/2024 7:17 AM CDT [facility] IMMATURE GRANULOCYTES ABSOLUTE 0.03 0.00 - 0.10 K/uL 11/10/2024 7:17 AM CDT [facility] SMEAR REVIEWED: NA - Not Applicable 11/10/2024 7:17 AM [facility] Blood Venipuncture / Unknown 11/10/2024 6:05 AM CDT 11/10/2024 7:07 AM CDT us Kali Ramirez MD HEMATOLOGY ORDERABLES Final Res ult [facility] CLIA # [id number] [address] [address] [place] [address] * (ABNORMAL) BASIC METABOLIC PANEL (11/10/2024 6:05 AM CDT) Only the most recent of2 resultswithin the time period is included. SODIUM 137 136 - 145 mmol/L 11/10/2024 7:52 AM [facility] POTASSIUM 3.6 3.5 - 5.1 mmol/L 11/10/2024 7:52 AM [facility] CHLORIDE 107 98 - 107 mmol/L 11/10/2024 7:52 AM [facility] CO2 22 22 - 29 mmol/L 11/10/2024 7:52 AM [facility] CALCIUM 7.3(L) 8.8 - 10.2 mg/dL 11/10/2024 7:52 AM [facility] BUN 15 8 - 23 mg/dL 11/10/2024 7:52 AM [facility] CREATININE 0.74 0.67 - 1.17 mg/dL 11/10/2024 7:52 AM [facility] GLUCOSE 106(H) 74 - 99 mg/dL 11/10/2024 7:52 AM [facility] GFR >60 >=60 mL/min/1.7 3 sq meter 11/10/2024 7:52 AM [facility] Comment:eGFR calculated with 2020 CKD-EPI equation. Vegetarian diet, extremely high or low muscle mass, and may affect results. Cystatin C with Glomerular Filtration Rate is a suitable alternative for these patients. ANION GAP 8(L) 9 - 20 mmol/L 11/10/2024 7:52 AM [facility] Blood Venipuncture / Unknown 11/10/2024 6:05 AM CDT 11/10/2024 7:07 AM T us Kali Ramirez MD CHEMISTRY ORDERABLES Final Resu lt [facility] CLIA # [id number] [address] [place] [address] * COLONOSCOPY REPORT (11/09/2024 2:44 PM CDT) Narrative Procedure Note Steve Crouch MD - 11/09/2024 2:44 PM CDT [facility] GI Patient Name: Renny Holm Procedure Date: 11/09/2024 Date of : 1955 [...] bowel preparation was evaluated using the BBPS ([place] Bowel Preparation Scale) with scores of: Right [...] Scope Out: 2:42:20 PM [address] [place], [place] us Steve Crouch MD GI PROCEDURE ORDERABLES Final Result * TRANSFUSE RED BLOOD CELLS (11/08/2024 3:39 PM CDT) us Kali Ramirez MD BLOOD TRANSFUSION ORDERABLES Fi nal Result * UPPER ENDOSCOPY REPORT (11/08/2024 2:50 PM CDT) Narrative Procedure Note Steve Crouch MD - 11/08/2024 2:50 PM CDT [facility] GI Patient Name: Renny Holm Procedure Date: 11/08/2024 Date of : 1955 [...] clip was successfully placed (MR conditional). Clip wire wrapper machine operator: Loopster. There was no bleeding at the end of the procedure. The examined duodenum was normal. Impression: - LA Grade A esophagitis with no bleeding. - Grade I esophageal varices. - Contact bleeding gastric ulcer with a flat pigmented spot (Rubio Class IIc). Clip (MR conditional) was placed. Clip wire wrapper machine operator: Loopster. - Normal examined duodenum. - No specimens collected. Recommendation: PPI Colonoscopy tomorrow, as I am not totally convinced he re-bled from the ulcer seen. Steve Crouch, 11/08/2024 2:50:45 PM Number of Addenda: 0 Note Initiated On: 11/08/2024 2:25 PM Scope Withdrawal Time Scope In: Scope Out: [address] [place], [place] Steve Crouch MD GI PROCEDURE ORDERABLES Final Result * PREPARE RED BLOOD CELLS (11/08/2024 11:50 AM CDT) COMPONENT TYPE [id number] [facility] [place] COMPONENT IDENTIFICATION [id number] [facility] [place] UNIT ABO O [facility] [place] UNIT RH NEG [facility] [place] CROSSMATCH Compatible [facility] [place] COMPONENT STATUS Transfused [facility] [place] COMPONENT EXPIRATION DATE/TIME [id number] [facility] [place] COMPONENT CODING SYSTEM [address] [facility] [place] VOLUME, BLOOD PRODUCT 350 [facility] [place] Other, specify 11/08/2024 11 :50 AM CDT Kali Ramirez MD LAB TRANSFUSION ORDERABLES Edit ed Result - Final [facility] [place] CLIA#[id number] [address] [place] [address], * US ABDOMEN LIMITED (11/08/2024 8:01 AM [...] paracentesis. No ascites visualized. No procedure performed. us Sarahi GOMEZ US ORDERABLES Final Resu lt * (ABNORMAL) PROTIME-INR (11/08/2024 2:02 AM CDT) Only the most recent of3 resultswithin the time period is included. PROTIME 17.0(H) 12.7 - 14.9 Seconds 11/08/2024 2:[address] [facility] INR 1.3(H) 0.8 - 1.2 11/08/2024 2:42 AM CDT [facility] Blood Venipuncture / Unknown 11/08/2024 2:02 AM CDT 11/08/2024 2:[address] [facility] [employer] [facility] - 11/08/2024 2:42 AM CDT Expected Values for INR: DVT/PE Goal INR 2.5; range 2.0 - 3.0 Valve Replacement Tissue Goal INR 2.5; range 2.0 - 3.0 Valve Replacement Mechanical Goal INR 3.0; range 2.5 - 3.5 POST-MD Goal INR 2.5; range 2.0 - 3.0 or Goal INR 3.0; range 2.5 - 3.5 Atrial Fibrillation Goal INR 2.5; range 2.0 - 3.0 Ischemic Stroke Goal INR 2.5; range 2.0 - 3.0 us Lefty Barnett MD HEMATOLOGY ORDERABLES Final Res ult [facility] CLIA # [id number] [address] [address] [facility] [place] [address] * (ABNORMAL) CBC WITHOUT DIFFERENTIAL (11/08/2024 2:02 AM CDT) [facility] WBC 7.6 4.8 - 10.8 K/uL 11/08/2024 2:44 AM CDT [facility] RBC 2.66(L) 4.60 - 6.20 M/uL 11/08/2024 2:44 AM CDT [facility] HEMOGLOBIN 7.3(L) 14.0 - 18.0 g/dL 11/08/2024 2:44 AM CDT [facility] HEMATOCRIT 22.4(L) 41.0 - 53.0 % 11/08/2024 2:44 AM CDT [facility] MCV 84.2 84.0 - 103.0 fL 11/08/2024 2:44 AM CDT [facility] MCH 27.4 27.0 - 34.0 pg 11/08/2024 2:44 AM CDT [facility] MCHC 32.6 30.0 - 35.0 g/dL 11/08/2024 2:44 AM CDT [facility] PLATELETS 64(L) 140 - 440 K/uL 11/08/2024 2:44 AM CDT [facility] MPV 11.2 8.9 - 12.8 fL 11/08/2024 2:44 AM CDT [facility] RDW 16.4(H) 11.0 - 14.5 % 11/08/2024 2:44 AM CDT [facility] RDW-STDEV 50.3 37.0 - 54.0 fL 11/08/2024 2:44 AM T [facility] Blood Venipuncture / Unknown 11/08/2024 2:02 AM CDT 11/08/2024 2:19 AM CDT us Lefty Barnett MD HEMATOLOGY ORDERABLES Final Res ult [facility] CLIA # [id number] [address] [address] [place] [address] * (ABNORMAL) COMPREHENSIVE METABOLIC PANEL (11/08/2024 2:02 AM CDT) Only the most recent of3 resultswithin the time period is included. Pathologist [facility] SODIUM 138 136 - 145 mmol/L 11/08/2024 2:52 AM T [facility] POTASSIUM 3.9 3.5 - 5.1 mmol/L 11/08/2024 2:52 AM [facility] CHLORIDE 106 98 - 107 mmol/L 11/08/2024 2:52 AM T [facility] CO2 22 22 - 29 mmol/L 11/08/2024 2:52 AM [facility] CALCIUM 7.8(L) 8.8 - 10.2 mg/dL 11/08/2024 2:52 AM T [facility] BUN 22 8 - 23 mg/dL 11/08/2024 2:52 AM [facility] CREATININE 0.82 0.67 - 1.17 mg/dL 11/08/2024 2:52 AM T [facility] GLUCOSE 159(H) 74 - 99 mg/dL 11/08/2024 2:52 AM [facility] TOTAL PROTEIN 4.6(L) 6.4 - 8.3 g/dL 11/08/2024 2:52 AM T [facility] ALBUMIN 3.0(L) 3.5 - 5.2 g/dL 11/08/2024 2:52 AM [facility] BILIRUBIN TOTAL 1.2(H) 0.0 - 1.0 mg/dL 11/08/2024 2:52 AM [facility] ALKALINE PHOSPHATASE 74 40 - 129 U/L 11/08/2024 2:52 AM T [facility] AST 29 10 - 50 U/L 11/08/2024 2:52 AM CDT [facility] ALT 20 <=50 U/L 11/08/2024 2:52 AM CDT [facility] GFR >60 >=60 mL/min/1.7 3 sq meter 11/08/2024 2:52 AM CDT [facility] Comment:eGFR calculated with 2020 CKD-EPI equation. Vegetarian diet, extremely high or low muscle mass, and may affect results. Cystatin C with Glomerular Filtration Rate is a suitable alternative for these patients. ANION GAP 10 9 - 20 mmol/L 11/08/2024 2:52 AM CDT [facility] Blood Venipuncture / Unknown 11/08/2024 2:02 AM CDT 11/08/2024 2:20 AM CDT us Lefty Barnett MD CHEMISTRY ORDERABLES Final Resu lt [facility] CLIA # [id number] [address] [place] [address] * UPPER ENDOSCOPY REPORT (11/07/2024 1:17 PM CDT) Narrative Procedure Note Steve Crouch MD - 11/07/2024 1:17 PM CDT [facility] GI Patient Name: Renny Holm Procedure Date: 11/07/2024 Date of : 1955 [...] Time Scope In: Scope Out: [address] [place], [place] Steve Crouch MD GI PROCEDURE ORDERABLES Final Result * PATHOLOGY (11/07/2024 1:11 PM CDT) CASE REPORT Surgical Pathology Report Case: [id number] Authorizing Provider: Steve Crouch MD Collected: 11/07/2024 01:11 PM Ordering Location: [facility] Received: 11/08/2024 06:41 AM Endoscopy Pathologist: Bebe Reynolds MD Specimen: Stomach 7:26 AM CDT [facility] FINAL DIAGNOSIS A. Stomach, biopsies - Focally ulcerated gastric mucosa with mild active gastritis in a background of moderate chronic gastritis - No intestinal metaplasia, dysplasia, or malignancy - Immunohistochemistry for Helicobacter pylori is negative Bebe Reynolds MD [id number] 7:[address] [facility] at 0726 CDT GROSS DESCRIPTION A. Received in formalin labeled Vishal -stomach biopsies rule out H. pylori are three fragments of guerra-pink soft tissue, up to 0.3 cm in greatest dimension. The specimen is submitted entirely in A1. Grossed by: Letty Morales MS, PA ([facility])CM 7:26 AM CDT [facility] MICROSCOPIC DESCRIPTION Immunohistochemistry for Helicobacter pylori was ordered on block A1 after review of H&E-stained slides based on the presence of ulceration and inflammation as well as clinician request. 7:26 AM CDT [facility] OPERATIVE PROCEDURE 1: ESOPHAGOGASTRODUODENOSCO PY 7:26 AM CDT [facility] CLINICAL INFORMATION R/o H Pylori 7:26 AM CDT [facility] COMMENT The [employer] voice-activated dictation system may have been used [...] determined by the Diagnostic Immunohistochemistry Laboratory of [facility] in compliance with CLIA'88 regulations. Some of these tests rely on the use of analyte specific reagents and are subject to specific labeling requirements by the FDA. All controls show appropriate reactivity. This testing was developed by the Diagnostic Immunohistochemistry Laboratory of [facility]. It has not been cleared or approved by the FDA. The FDA has determined that such clearance or approval is not necessary. 7:26 AM CDT [facility] Tissue ENTIRE STOMACH / Unknown Collection / Unknown 11/07/2024 1:11 PM CDT 11/08/2024 6:41 AM CDT Comment:R/o H Pylori Steve Crouch MD PATHOLOGY/CYTOLOGY SUSANNE SAWANT Final Result [facility] CLIA # [id number] [address] [facility] [place] [address] * ALPHA FETOPROTEIN TUMOR MARKER (11/07/2024 10:22 AM CDT) [facility] ALPHA FETOPROTEIN TUMOR MARKER 4.6 <6.1 ng/mL 11/09/2024 2:07 PM CDT [facility] Comment: This test was performed using the Frances Osteen chemiluminescent method. Values obtained from different assay methods cannot be used interchangeably. AFP levels, regardless of value, should not be interpreted as absolute evidence of the presence or absence of disease. Blood Venipuncture / Unknown 11/07/2024 10:22 AM CDT 11/07/2024 10:41 AM CDT Narrative [facility] - 11/09/2024 2:07 PM CDT Performing Organization Information: Site ID: CB Name: [employer] Address: [address] [place] [id number] Director: Partha Garibay Sarahi GOMEZ CHEMISTRY ORDERABLES Final Result Performing Organization Address City/[facility]/ZIP Co de Phone Number [facility] * VERIFICATION BLOOD GROUP (11/07/2024 9:17 AM CDT) [facility] ABO GROUP O 11/07/2024 9:58 AM CDT [facility] RH (D) TYPE Positive 11/07/2024 9:58 AM CDT [facility] Blood Venipuncture / Unknown 11/07/2024 9:17 AM CDT 11/07/2024 9:37 AM CDT Lefty Barnett MD BLOOD BANK ORDERABLES Final Res ult [facility] [facility] CLIA#[id number] [address] [place] [address], * EXTRA TUBE (URINE ROJAS) (11/07/2024 8:30 AM CDT) Urine URINE SPECIMEN OBTAINED BY CLEAN CATCH PROCEDURE / Unknown 11/07/2024 8:30 AM CDT 11/07/2024 8:30 AM CDT us Lefty Barnett MD URINE ORDERABLES Final Result [facility] CLIA # [id number] [facility] [address] [address] * (ABNORMAL) URINALYSIS WITH REFLEX MICROSCOPIC (11/07/2024 8:30 AM CDT) COLOR UA Yellow Pale to Dark Yellow 11/07/2024 8:37 AM CDT [facility] CLARITY UA Clear Clear 11/07/2024 8:37 AM T [facility] SPECIFIC GRAVITY UA 1.020 1.003 - 1.035 11/07/2024 8:37 AM CDT [facility] PH UA 6.0 5.0 - 8.0 11/07/2024 8:37 AM T [facility] LEUKOCYTE ESTERASE UA Negative Negative 11/07/2024 8:37 AM T [facility] NITRITE UA Negative Negative 11/07/2024 8:37 AM T [facility] PROTEIN UA Trace(A) Negative 11/07/2024 8:37 AM CDT [facility] GLUCOSE UA Negative Negative 11/07/2024 8:37 AM T [facility] KETONES UA 2+(A) Negative 11/07/2024 8:37 AM T [facility] UROBILINOGEN UA 0.2 <2.0 mg/dL 8:37 AM T [facility] BILIRUBIN UA Negative Negative 11/07/2024 8:37 AM T [facility] BLOOD UA Negative Negative 11/07/2024 8:37 AM CDT [facility] Urine URINE SPECIMEN OBTAINED BY CLEAN CATCH PROCEDURE / Unknown 11/07/2024 8:30 AM CDT 11/07/2024 8:30 AM CDT Lefty Barnett MD URINE ORDERABLES Final Result Performing Organization Address [facility] de Phone Number [facility] [employer] [facility] CLIA # [id number] [address] [address] * PTT (11/07/2024 8:00 AM CDT) PTT 31.7 24.8 - 37.2 seconds 11/07/2024 8:[address] [facility] [place] Blood Venipuncture / Unknown 11/07/2024 8:00 AM CDT 11/07/2024 8:[address] [facility] [place] - 11/07/2024 8:29 AM CDT Therapeutic Range: Hi-level PE/DVT heparin protocol 80.1 - 95.0 sec Lo-level PE/DVT heparin protocol 70.1 - 85.0 sec Cardiac Heparin Protocol 70.1 - 100.0 sec Lefty Barnett MD HEMATOLOGY ORDERABLES Final Res ult Performing Organization Address [facility] de Phone Number [facility] [employer] [facility] CLIA # [id number] [address] [address] * TYPE AND SCREEN (11/07/2024 8:00 AM CDT) ABO GROUP O 11/07/2024 9:[address] [facility] [place] RH (D) TYPE Positive 11/07/2024 9:[address] [facility] [place] ANTIBODY SCREEN Negative 11/07/2024 9:[address] [facility] [place] Blood Venipuncture / Unknown 11/07/2024 8:00 AM CDT 11/07/2024 8:17 AM CDT us Lefty Barnett MD BLOOD BANK ORDERABLES Edited Re sult - Final Performing Organization Address [facility] Co de Phone Number [facility] [employer] [facility] CLIA#[id number] [address] [place], [place] [id number] [place] [address] * (ABNORMAL) MAGNESIUM LEVEL (11/07/2024 8:00 AM CDT) MAGNESIUM 1.5(L) 1.6 - 2.4 mg/dL 11/07/2024 8:49 AM CDT [facility] Blood Venipuncture / Unknown 11/07/2024 8:00 AM CDT 11/07/2024 8:17 AM CDT Lefty Barnett MD CHEMISTRY ORDERABLES Final Resu lt Performing Organization Address [facility] Co de Phone Number [facility] CLIA # [id number] [address] [address] * (ABNORMAL) HEMOGLOBIN A1C (11/07/2024 8:00 AM CDT) HEMOGLOBIN A1C 7.5(H) <=5.6 % 11/09/2024 11:[address] [facility] [employer] [facility] EST. AVG GLUCOSE, A1C 169 mg/dL 11/09/2024 11:16 AM CDT [facility] Blood Venipuncture / Unknown 11/07/2024 8:00 AM CDT 11/07/2024 8:[address] [facility] [employer] [facility] - 11/09/2024 11:16 AM CDT HGB A1C INTERPRETATION NORMAL: <5.7% PRE-DIABETES: 5.7 - 6.4% DIABETES: 6.5% OR GREATER us Lefty Barnett MD CHEMISTRY ORDERABLES Final Resu lt [facility] [facility] # [id number] [address] [place] [address] * EKG 12-LEAD (11/07/2024 7:41 AM CDT) 11/07/2024 7:41 AM CDT Narrative INTERFACE SYSTEM - 11/09/2024 6:28 [place] [address] Test Date: 2024-11-07 Pat Name: RENNY HALLRES Department: 12 Room: [address] [place] [address] Gender: M Parasitologist: [id number] : 1955 Requested By: Order Number: [id number] Anju GONZALEZ: Denice Hernandez Measurements Intervals [place] Rate: 110 P: 43 [place]: 160 QRS: -45 QRSD: 92 T: 53 QT: 342 QTc: 462 Interpretive Statements Sinus tachycardia with premature atrial complexes Left anterior fascicular block Abnormal ECG Electronically Signed On 11-09-2024 18:28:51 CDT by Denice Hernandez Procedure Note Denice Hernandez, - 11/09/[address] [address] Test Date: 2024-11-07 Pat Name: RENNY VISHAL Department: 12 Room: [address] [place] [address] Gender: M Parasitologist: [id number] : 1955 Requested By: Order Number: [id number] Anju GONZALEZ: Denice Hernandez Measurements Intervals [place] Rate: 110 P: 43 [place]: 160 QRS: -45 QRSD: 92 T: 53 QT: 342 QTc: 462 Interpretive Statements Sinus tachycardia with premature atrial complexes Left anterior fascicular block Abnormal ECG Electronically Signed On 11-09-2024 18:28:51 CDT by Denice Birchem us Lefty Barnett MD ECG ORDERABLES Final Result INTERFACE SYSTEM Refer to clinic/hospital department from Last 3 Months Insurance [facility] [address] [place] [address] RX [employer] Member Subscriber Plan / Payer (Ef fective 2024-Present) Name:Renny Holm Relation to Subscriber:Self Name:Renny Holm Subscriber ID:Not on file Payer ID:Not on file Group ID:[id number] Type:RX Commercial Address: [place], [place] RX [employer] (INTERNAL) [facility] Internal [facility] Advance Directives For more information, please contact: [phone] * Full Code (Latest Code Status on File) Date Activated Date Inactivated Comments 11/07/2024 7:13 AM 11/11/2024 5:38 PM
--- OUTSIDE RECORDS SUMMARY | 2025-01-23 19:17 | XMS_ITS | Encounter Summary ---
Author Organization [facility] Address [address] [place] [address] Care Team Providers Care Ripsawyer Name Role Phone Unavailable Primary Care Provider Unavailabl e Encounter Details Date Type Department Care Team (Late st Contact Info) Description 01/17/2025 External Device Data [facility] ABSTRACTION Provider, Abstract NO ADDRESS ON FILE Social [...] worry about transportation for future doctor visits, pepper picker medication, etc.? No 2024 Housing Stability [...] on file documented as of this encounter Visit Diagnoses Not on filedocumented in this encounter
== END 2025-01-23 18:06 | disposition home or self-care (01) ==
PROVIDERS: Emergency Provider Physician Assistant; PCP Family Medicine
DX: K74.60 Unspecified cirrhosis of liver (principal); Z79.4 Long term (current) use of insulin; Z79.82 Long term (current) use of aspirin
CPT/HCPCS: 36415; 71045; 80053; 83735; 83880; 84484; 85025; 85610; 85730; 93005; 96374; 96375; 99285; J1938; J2270; J2405